=== PATIENT | female | born 1960 | race Caucasian/White ===

== ENCOUNTER 2016-07-18 09:36 | Outpatient (RCR) | payer OTHER ==
--- OUTSIDE RECORDS SUMMARY | 2016-04-25 09:00 | XMS REPORT | Continuity of Care Document ---
Author Author [facility] Organization [facility] Address Unknown Phone Unavailable Care Team Providers Care Parachute Rigger Name Role Phone JUANITA SANDERS DO PCP Insurance Providers Payer Name Policy Number Subscriber Name Relationship DAMARI [id number] Ed Whatley 16 Self / Same As Patient Advance Directives Directive Response Recorded Date/Time Advance Directives No 12/01/15 5:36pm Health Care Power of Blow Moulding Machine Operator No 12/01/15 5:36pm Organ Donor No 12/01/15 5:36pm Resuscitation Status Full Code 12/01/15 5:36pm Chief Complaint and Reason for Visit Chief Complaint LOW SODIUM Reason for Visit Fracture of left olecranon process Problems Active Problems Medical Problem Onset Date Status Acute hyponatremia Unknown Acute Fracture of left olecranon process Unknown Acute Medications Current Home Medications Medication Dose Units Route Directions Days/Qty Instructions Start Date Prednisone 50 Mg 100 Mg Oral As Directed TAKES 2 (50 MG) TABLETS DAILY X 5 DAYS WITH EACH ROUND OF CHEMO 12/01/15 Ondansetron Hcl 8 Mg 8 Mg Oral Every 8HRS as needed for Nausea/Vomiting 12/01/15 Bisoprolol Fumarate/Hctz 1 Each 1 Tab Oral Daily 12/01/15 Naproxen 500 Mg 500 Mg Oral Twice A Day 12/01/15 Spironolactone 25 Mg 25 Mg Oral Daily 12/01/15 Allopurinol 100 Mg 100 Mg Oral Daily 12/01/15 Estradiol 1 Mg 1 Mg Oral Daily 12/01/15 Diazepam 5 Mg 5 Mg Oral Bedtime as needed for Anxiety 12/01/15 Sucralfate 1 Gm/10 Ml 10 Ml Oral Before Meals And At Bedtime Omeprazole 20 Mg 20 Mg Oral Daily 12/01/15 Metoclopramide Hcl 10 Mg 10 Mg Oral As Needed for Nausea 30 12/03/15 Diphenhydramine Hcl 25 Mg 25 Mg Oral Pharmacy To Dose as needed for Prior Reglan Use 12/03/15 Past Home Medications Medication Directions Ordered Status Bisoprolol Fumarate/Hctz 1 Each Tablet, 1 Tab Oral Daily 03/19/14 Discontinued Estradiol 1 Mg Tablet, 1 Mg Oral Daily 03/19/14 Discontinued Naproxen 500 Mg Tablet, 1 Tab Oral As Needed 03/19/14 Discontinued Fluticasone Propionate 16 Gm Naspr, 1 [place] Inhalation As Needed 03/19/14 Discontinued Hydrocodone Bit/Acetaminophen 1 Tab Tablet, 1-2 Tab Oral Every 6 Hours as needed for Pain 03/19/14 Discontinued [Bisoprolol] , 6.25 Oral Daily 11/14/15 Discontinued [Spironolactone] , 25 Oral Daily 11/14/15 Discontinued Hydrocodone/Acetaminophen 1 Each Tablet, 1 Each Oral Every 4HRS as needed for Pain 11/14/15 Discontinued Hydrocodone/Acetaminophen 1 Each Tablet, 1 Each Oral Every 4HRS as needed for Pain 11/21/15 Discontinued Social History Social History Problem Response Recorded Date/Time Alcohol Use Denies Use 12/01/2015 5:33pm Recreational Drug Use No 12/01/2015 5:33pm Recent Foreign Travel No 03/19/2014 10:43pm Recent Infectious Disease Exposure No 03/19/2014 10:43pm Hospitalization with Isolation Denies 12/03/2015 2:17pm Smoking Status Never a Smoker 12/01/2015 5:36pm Query Response Start Date Stop Date Smoking Status Never a Smoker Hospital Discharge Instructions No hospital discharge instructions. Plan of Care Discharge Date 12/03/15 2:16pm Disposition 01 HOME, SELF-CARE Instructions/Education Provided Acute Nausea and Vomiting (GEN) Prescriptions See Medication Section Functional Status Query Response Date Recorded Patient Orientation Person Place Time Situation December 03, 2015 2:17pm Comprehension Ability Understands Concepts December 03, 2015 7:56am Allergies, Adverse Reactions, Alerts Allergen Type Severity Reaction Status Last Updated Penicillins ([id number]) Allergy Unknown Active 12/01/15 Immunizations No immunization records. Vital Signs Acute Vital Signs Vital Response Date/Time Temperature (Fahrenheit) 98.7 degrees F (97.6 - 99.5) 12/03/2015 2:10pm Temperature (Calculated Celsius) 37.52430 degrees C (36.4 - 37.5) 12/03/2015 2:02pm Temperature Source Tympanic 12/03/2015 2:10pm Pulse Rate (adult) 82 bpm (60 - 90) 12/03/2015 2:10pm Respiratory Rate 20 bpm (12 - 24) 12/03/2015 2:10pm O2 Sat by Pulse Oximetry 97 % (88 - 100) 12/03/2015 2:10pm Blood Pressure 125/72 mm Hg 12/03/2015 2:10pm Blood Pressure Mean 89 mm Hg 12/03/2015 2:02pm Pain Pain Intensity 0 12/03/2015 2:02pm Height (Feet) 5 feet 12/01/2015 5:37pm Height (Inches) 6.00 inches 12/01/2015 5:37pm Height (Calculated Centimeters) 167.319870 cm 12/01/2015 5:37pm Weight (Pounds) 149 pounds 12/01/2015 5:37pm Weight (Ounces) 0.0 oz 12/01/2015 5:37pm Weight (Calculated Grams) 42329.264 gm 12/01/2015 5:37pm Weight (Calculated Kilograms) 67.952205 kilograms 12/01/2015 5:37pm Calculated BMI 24.1 12/01/2015 5:37pm Results Pending Laboratory Results Test Name Collection Date/Time Microbiology Results Procedure Source Result Collection Date/Time Result Date/Time MRSA Screen Nasal MRSA not isolated 11/14/2015 7:15am 11/15/2015 11:27am Procedures Procedure Status Date Provider(s) BIOPSY/REMOVAL LYMPH NODES Completed 11/14/15 JANAY RICHARDSON MD INSERT TUNNELED CV CATH Completed 11/21/15 JANAY RICHARDSON MD Color Doppler echocardiography Active 11/24/15 TATYANA FORBES Encounters Encounter Location Arrival/Admit Date Discharge/Depart Date Attending Provider Discharged Inpatient (obs) [facility] 12/01/15 3:57pm 2:16pm TATYANA FORBES Registered Recurring [facility] 12/01/15 1:49pm TATYANA FORBES Registered Clinic [facility] 11/30/15 8:39am GARRET SEGUNDO Registered Clinic [facility] 11/24/15 7:42am TATYANA FORBES Departed [facility] 11/21/15 10:28am 11/21/15 4:25pm JANAY RICHARDSON MD Departed [facility] 11/14/15 6:54am 11:32am JANAY RICHARDSON MD Recent Diagnosis Fracture of left olecranon process
[2016-05-23 10:30] LABS: BASOPHILS % (AUTO) 0 % (0-10); EOSINOPHILS # (AUTO) 0.1 10^3/uL (0.0-0.3); EOSINOPHILS % (AUTO) 3 % (0-10); LYMPHOCYTES # (AUTO) 0.7 X 10^3 (1.0-4.0); LYMPHOCYTES % (AUTO) 13 % (12-44); MEAN CORPUSCULAR HEMOGLOBIN 33 PG (25-34); MEAN CORPUSCULAR HGB CONC 36 G/DL (32-36); MEAN CORPUSCULAR VOLUME 92 FL (80-99); MEAN PLATELET VOLUME 9.3 FL (7.4-10.4); MONOCYTES # (AUTO) 0.5 X 10^3 (0.0-1.0); MONOCYTES % (AUTO) 10 % (0-12); NEUTROPHILS # (AUTO) 3.9 X 10^3 (1.8-7.8); NEUTROPHILS % (AUTO) 74 % (42-75); PLATELET COUNT 235 10^3/uL (130-400); RED CELL DISTRIBUTION WIDTH 11.2 % (10.0-14.5); WHITE BLOOD COUNT 5.2 10^3/uL (4.3-11.0)
[2016-05-23 10:55] LABS: ALANINE AMINOTRANSFERASE 13 U/L (0-55); ALBUMIN 4.3 G/DL (3.2-4.5); ANION GAP 9 MMOL/L (5-14); ASPARTATE AMINO TRANSFERASE 15 U/L (5-34); BILIRUBIN,TOTAL 0.5 MG/DL (0.1-1.0); BLOOD UREA NITROGEN 15 MG/DL (7-18); BUN/CREATININE RATIO 18; CALCIUM 9.1 MG/DL (8.5-10.1); CARBON DIOXIDE 26 MMOL/L (21-32); CHLORIDE 101 MMOL/L (98-107); CREATININE SERUM 0.84 MG/DL (0.60-1.30); GFR ESTIMATED > 60; GLUCOSE 97 MG/DL (70-105); LACTATE DEHYDROGENASE 184 U/L (125-220); POTASSIUM 3.7 MMOL/L (3.6-5.0); SODIUM 136 MMOL/L (135-145); TOTAL PROTEIN 6.4 G/DL (6.4-8.2)
[~2016-07-18] VITALS: Ht 165.1 cm; Wt 70.3 kg
[~2016-07-18 09:36] MED LIST: ACETAMINOPHEN 500 MG TAB (TYLENOL) CANCER CTR PO PRN; ALLO100T PO; BISO1TAB3 PO; BISO1TAB8 PO; CYCLOPHOSPHAMIDE IV SCH; DIAZ5TAB3 PO; DIPH25CA79 PO; DOXORUBICIN IV SCH; ESTR1TAB24 PO; FAMOTIDINE 20MG/2ML IV (CANCER CTR) IV SCH; FLUT16SP22 IH; FOSAPREPITANT DIMEGLUMINE 150 MG in NS (IVPB) CANCER CENTER ONLY 150 ML IV PRN; HYDR-1231 PO; HYDR-3454 PO; METO-310 PO; NAPR-689 PO; NAPR500T3 PO; NS IV 1000 ML (CANCER CTR) IV SCH; NS IV 500 ML (CANCER CENTER) IV SCH; NS IV SCH; OMEP20CA12 PO; ONDA8TAB12 PO; PALONOSETRON HCL 0.25 MG, DEXAMETHASONE PF INJECTION 10 MG in NS (IVPB) 50 ML IV PRN; PEGFILGRASTIM 6 MG/0.6ML NEULASTA SC SCH; PRD50T PO; RITUXIMAB FOR IV SCH; RITUXIMAB IV SCH; SPIR25TA3 PO; SUCR1ORA5 PO; [UNRECOGNIZED DRUG - OTHER] IV SCH; bisoprolol PO; diphenhydrAMINE 25 MG TAB (BENADRYL) CANCER CENTER PO SCH; riTUXimab 500 MG, riTUXimab FOR IV INJ CONC 200 MG in NS (IVPB) CANCER CENTER ONLY 150 ML IV SCH; spironolactone PO; vinCRIStine SULFATE 2 MG in NS (IVPB) 50 ML IV SCH
[2016-07-18 10:13] LABS: BASOPHILS % (AUTO) 1 % (0-10); EOSINOPHILS # (AUTO) 0.1 10^3/uL (0.0-0.3); EOSINOPHILS % (AUTO) 3 % (0-10); LYMPHOCYTES # (AUTO) 0.6 X 10^3 (1.0-4.0); LYMPHOCYTES % (AUTO) 15 % (12-44); MEAN CORPUSCULAR HEMOGLOBIN 32 PG (25-34); MEAN CORPUSCULAR HGB CONC 35 G/DL (32-36); MEAN CORPUSCULAR VOLUME 92 FL (80-99); MEAN PLATELET VOLUME 9.5 FL (7.4-10.4); MONOCYTES # (AUTO) 0.4 X 10^3 (0.0-1.0); MONOCYTES % (AUTO) 9 % (0-12); NEUTROPHILS # (AUTO) 2.9 X 10^3 (1.8-7.8); NEUTROPHILS % (AUTO) 73 % (42-75); PLATELET COUNT 238 10^3/uL (130-400); RED BLOOD COUNT 4.09 10^6/uL (4.35-5.85); WHITE BLOOD COUNT 3.9 10^3/uL (4.3-11.0)
[2016-07-18 10:35] LABS: ALANINE AMINOTRANSFERASE 20 U/L (0-55); ALBUMIN 4.2 G/DL (3.2-4.5); ANION GAP 9 MMOL/L (5-14); ASPARTATE AMINO TRANSFERASE 20 U/L (5-34); BILIRUBIN,TOTAL 0.8 MG/DL (0.1-1.0); BLOOD UREA NITROGEN 20 MG/DL (7-18); BUN/CREATININE RATIO 23; CALCIUM 9.3 MG/DL (8.5-10.1); CARBON DIOXIDE 26 MMOL/L (21-32); CHLORIDE 103 MMOL/L (98-107); CREATININE SERUM 0.87 MG/DL (0.60-1.30); GFR ESTIMATED > 60; GLUCOSE 101 MG/DL (70-105); LACTATE DEHYDROGENASE 180 U/L (125-220); POTASSIUM 3.8 MMOL/L (3.6-5.0); SODIUM 138 MMOL/L (135-145); TOTAL PROTEIN 6.2 G/DL (6.4-8.2)
== END 2016-07-24 | disposition home or self-care (01) ==
LOC: ONC 09:36
PROVIDERS: ATTEND Internal Medicine Hematology & Oncology
DX: Z51.11 Encounter for antineoplastic chemotherapy (principal); C85.90 Non-Hodgkin lymphoma, unspecified, unspecified site; I10 Essential (primary) hypertension; M19.90 Unspecified osteoarthritis, unspecified site; Z79.899 Other long term (current) drug therapy; Z45.2 Encounter for adjustment and management of vascular access device
CPT/HCPCS: 36591; 80053; 83615; 85025; 96413; 96415; 96523; 99213

== ENCOUNTER 2016-11-07 08:18 | Outpatient (RCR) | payer OTHER ==
--- OUTSIDE RECORDS SUMMARY | 2016-08-15 13:05 | XMS REPORT | Continuity of Care Document ---
Author Author [facility] Organization [facility] Address Unknown Phone Unavailable Care Team Providers Care Housing Property Manager Name Role Phone JUANITA SANDERS DO PCP Insurance Providers Payer Name Policy Number Subscriber Name Relationship DAMARI [id number] Ed Whatley Self / Same As Patient Advance Directives Directive Response Recorded Date/Time Advance Directives No 12/01/15 5:36pm Health Care Power of Voice Coach No 12/01/15 5:36pm Organ Donor No 12/01/15 5:36pm Problems Active Problems Medical Problem Onset Date [...] 10 Mg Oral As Needed for Nausea 12/03/15 Diphenhydramine Hcl 25 Mg 25 Mg Oral Pharmacy To Dose as needed for Prior Reglan Use 12/03/15 Past Home Medications Medication Directions Ordered Status Bisoprolol Fumarate/Hctz 1 Each Tablet, 1 Tab Oral Daily 03/19/14 Discontinued Estradiol 1 Mg Tablet, 1 Mg Oral Daily 03/19/14 Discontinued Naproxen 500 Mg Tablet, 1 Tab Oral As Needed 03/19/14 Discontinued Fluticasone Propionate 16 Gm Naspr, 1 [place] Inhalation As Needed 03/19/14 Discontinued Hydrocodone Bit/Acetaminophen [...] Recent Infectious Disease Exposure No 03/19/2014 10:43pm Hospital Discharge Instructions No hospital discharge instructions. Plan of Care Prescriptions See Medication Section Functional Status No functional status results. Allergies, Adverse Reactions, Alerts Allergen Type Severity Reaction Status Last Updated Penicillins ([id number]) Allergy Unknown Active 12/01/15 Immunizations No immunization records. Vital Signs Acute Vital Signs Vital Response Date/Time Height 5 ft 5 in Weight 155 lb Body Mass Index 25.8 kg/m^2 Results Laboratory Results Test Name Result Units Flags Reference Collection Date/Time Result Date/ Time Comments White Blood Count 3.9 10^3/uL L 4.3-11.0 07/18/2016 10:07/18/2016 10 :15am Red Blood Count 4.09 10^6/uL L 4.35-5.85 07/18/2016 10:07/18/2016 10 :15am Hemoglobin 13.1 G/DL 11.5-16.0 07/18/2016 10:07/18/2016 10:15am Hematocrit 38 % 35-52 07/18/2016 10:07/18/2016 10:15am Mean Corpuscular Volume 92 FL 80-99 07/18/2016 10:07/18/2016 10: 15am Mean Corpuscular Hemoglobin 32 PG 25-34 07/18/2016 10:07/18/2016 10:15am Mean Corpuscular Hemoglobin Concent 35 G/DL 32-36 07/18/2016 10: 10:15am Red Cell Distribution Width 12.0 % 10.0-14.5 07/18/2016 10:2016 10:15am Platelet Count 238 10^3/uL 130-400 07/18/2016 10:07/18/2016 10: 15am Mean Platelet Volume 9.5 FL 7.4-10.4 07/18/2016 10:07/18/2016 10: 15am Neutrophils (%) (Auto) 73 % 42-75 07/18/2016 10:07/18/2016 10: 15am Lymphocytes (%) (Auto) 15 % 12-44 07/18/2016 10:07/18/2016 10: 15am Monocytes (%) (Auto) 9 % 0-12 07/18/2016 10:07/18/2016 10:15am Eosinophils (%) (Auto) 3 % 0-10 07/18/2016 10:07/18/2016 10:15am Basophils (%) (Auto) 1 % 0-10 07/18/2016 10:07/18/2016 10:15am Neutrophils # (Auto) 2.9 X 10^3 1.8-7.8 07/18/2016 10:07/18/2016 10:15am Lymphocytes # (Auto) 0.6 X 10^3 L 1.0-4.0 07/18/2016 10:07/18/2016 10:15am Monocytes # (Auto) 0.4 X 10^3 0.0-1.0 07/18/2016 10:07/18/2016 10: 15am Eosinophils # (Auto) 0.1 10^3/uL 0.0-0.3 07/18/2016 10:07/18/2016 10:15am Basophils # (Auto) 0.0 10^3/uL 0.0-0.1 07/18/2016 10:07/18/2016 10 :15am Sodium Level 138 MMOL/L 135-145 07/18/2016 10:07/18/2016 10:36am Potassium Level 3.8 MMOL/L 3.6-5.0 07/18/2016 10:07/18/2016 10: 36am Chloride Level 103 MMOL/L 98-107 07/18/2016 10:07/18/2016 10:36am Carbon Dioxide Level 26 MMOL/L 21-32 07/18/2016 10:07/18/2016 10: 36am Anion Gap 9 MMOL/L 5-14 07/18/2016 10:07/18/2016 10:36am Blood Urea Nitrogen 20 MG/DL H 7-18 07/18/2016 10:07/18/2016 10: 36am Creatinine 0.87 MG/DL 0.60-1.30 07/18/2016 10:07/18/2016 10:36am BUN/Creatinine Ratio 23 07/18/2016 10:07/18/2016 10:36am Estimat Glomerular Filtration Rate > 60 07/18/2016 10:2016 10:36am GFR INTERPRETIVE DATA UNITS FOR ESTIMATED GFR (eGFR): mL/min/1.73 M2 REFERENCE RANGE FOR ESTIMATED GFR (eGFR) eGFR NORMAL eGFR >60 MODERATELY DECREASED eGFR 30-59 SEVERLY DECREASED eGFR 15-29 KIDNEY FAILURE <15 (OR DIALYSIS) Glucose Level 101 MG/DL 70-105 07/18/2016 10:07/18/2016 10:36am Calcium Level 9.3 MG/DL 8.5-10.1 07/18/2016 10:07/18/2016 10:36am Total Bilirubin 0.8 MG/DL 0.1-1.0 07/18/2016 10:10a07/18/2016 10: 36am Alkaline Phosphatase 55 U/L 40-136 07/18/2016 10:10a07/18/2016 10: 36am Aspartate Amino Transf (AST/SGOT) 20 U/L 5-34 07/18/2016 10:10am 2016 10:36am Alanine Aminotransferase (ALT/SGPT) 20 U/L 0-55 07/18/2016 10:10a11/2016 10:36am Lactate Dehydrogenase 180 U/L 125-220 07/18/2016 10:10am 07/18/2016 10: 36am Total Protein 6.2 G/DL L 6.4-8.2 07/18/2016 10:10am 07/18/2016 10:36am Albumin 4.2 G/DL 3.2-4.5 07/18/2016 10:10am 07/18/2016 10:36am Procedures No known history of procedures. Encounters Encounter Location Arrival/Admit Date Discharge/Depart Date Attending Provider Discharged Recurring [facility] 07/18/16 9:36am 11:59pm TATYANA FORBES
[2016-09-12 10:08] LABS: BASOPHILS % (AUTO) 0 % (0-10); EOSINOPHILS # (AUTO) 0.2 10^3/uL (0.0-0.3); EOSINOPHILS % (AUTO) 4 % (0-10); LYMPHOCYTES # (AUTO) 0.7 X 10^3 (1.0-4.0); LYMPHOCYTES % (AUTO) 18 % (12-44); MEAN CORPUSCULAR HEMOGLOBIN 33 PG (25-34); MEAN CORPUSCULAR HGB CONC 35 G/DL (32-36); MEAN CORPUSCULAR VOLUME 93 FL (80-99); MEAN PLATELET VOLUME 9.8 FL (7.4-10.4); MONOCYTES # (AUTO) 0.6 X 10^3 (0.0-1.0); MONOCYTES % (AUTO) 15 % (0-12); NEUTROPHILS # (AUTO) 2.3 X 10^3 (1.8-7.8); NEUTROPHILS % (AUTO) 63 % (42-75); PLATELET COUNT 230 10^3/uL (130-400); RED BLOOD COUNT 4.08 10^6/uL (4.35-5.85); RED CELL DISTRIBUTION WIDTH 11.7 % (10.0-14.5); WHITE BLOOD COUNT 3.7 10^3/uL (4.3-11.0)
[2016-09-12 10:38] LABS: ALANINE AMINOTRANSFERASE 15 U/L (0-55); ALBUMIN 4.1 G/DL (3.2-4.5); ANION GAP 9 MMOL/L (5-14); ASPARTATE AMINO TRANSFERASE 13 U/L (5-34); BILIRUBIN,TOTAL 0.5 MG/DL (0.1-1.0); BLOOD UREA NITROGEN 18 MG/DL (7-18); BUN/CREATININE RATIO 21; CARBON DIOXIDE 26 MMOL/L (21-32); CHLORIDE 103 MMOL/L (98-107); CREATININE SERUM 0.87 MG/DL (0.60-1.30); GFR ESTIMATED > 60; GLUCOSE 89 MG/DL (70-105); LACTATE DEHYDROGENASE 173 U/L (125-220); SODIUM 138 MMOL/L (135-145); TOTAL PROTEIN 6.1 G/DL (6.4-8.2)
[~2016-11-07] VITALS: Ht 165.1 cm; Wt 70.8 kg
[~2016-11-07 08:18] MED LIST changes: -RITUXIMAB FOR IV SCH; -RITUXIMAB IV SCH; -[UNRECOGNIZED DRUG - OTHER] IV SCH
[2016-11-07 08:35] LABS: BASOPHILS % (AUTO) 0 % (0-10); EOSINOPHILS # (AUTO) 0.1 10^3/uL (0.0-0.3); EOSINOPHILS % (AUTO) 3 % (0-10); LYMPHOCYTES # (AUTO) 0.9 X 10^3 (1.0-4.0); LYMPHOCYTES % (AUTO) 19 % (12-44); MEAN CORPUSCULAR HEMOGLOBIN 33 PG (25-34); MEAN CORPUSCULAR HGB CONC 35 G/DL (32-36); MEAN CORPUSCULAR VOLUME 94 FL (80-99); MEAN PLATELET VOLUME 10.6 FL (7.4-10.4); MONOCYTES # (AUTO) 0.5 X 10^3 (0.0-1.0); MONOCYTES % (AUTO) 11 % (0-12); NEUTROPHILS % (AUTO) 67 % (42-75); PLATELET COUNT 229 10^3/uL (130-400); RED BLOOD COUNT 4.25 10^6/uL (4.35-5.85); RED CELL DISTRIBUTION WIDTH 11.8 % (10.0-14.5); WHITE BLOOD COUNT 4.5 10^3/uL (4.3-11.0)
[2016-11-07 08:56] LABS: ALANINE AMINOTRANSFERASE 15 U/L (0-55); ALBUMIN 4.1 G/DL (3.2-4.5); ANION GAP 9 MMOL/L (5-14); ASPARTATE AMINO TRANSFERASE 14 U/L (5-34); BILIRUBIN,TOTAL 0.8 MG/DL (0.1-1.0); BLOOD UREA NITROGEN 15 MG/DL (7-18); BUN/CREATININE RATIO 16; CALCIUM 8.9 MG/DL (8.5-10.1); CARBON DIOXIDE 23 MMOL/L (21-32); CHLORIDE 106 MMOL/L (98-107); CREATININE SERUM 0.91 MG/DL (0.60-1.30); GFR ESTIMATED > 60; GLUCOSE 117 MG/DL (70-105); LACTATE DEHYDROGENASE 168 U/L (125-220); POTASSIUM 3.7 MMOL/L (3.6-5.0); SODIUM 138 MMOL/L (135-145)
== END 2016-11-13 | disposition home or self-care (01) ==
LOC: ONC 08:18
PROVIDERS: ATTEND Internal Medicine Hematology & Oncology
DX: C85.90 Non-Hodgkin lymphoma, unspecified, unspecified site (principal); I10 Essential (primary) hypertension; M19.90 Unspecified osteoarthritis, unspecified site; Z79.899 Other long term (current) drug therapy; Z45.2 Encounter for adjustment and management of vascular access device
CPT/HCPCS: 36591; 80053; 83615; 85025; 96413; 96523; 99213

== ENCOUNTER 2017-02-27 08:36 | Outpatient (RCR) | payer OTHER ==
[2017-01-02 09:11] LABS: BASOPHILS % (AUTO) 0 % (0-10); EOSINOPHILS # (AUTO) 0.1 10^3/uL (0.0-0.3); EOSINOPHILS % (AUTO) 3 % (0-10); LYMPHOCYTES # (AUTO) 0.8 X 10^3 (1.0-4.0); LYMPHOCYTES % (AUTO) 17 % (12-44); MEAN CORPUSCULAR HEMOGLOBIN 33 PG (25-34); MEAN CORPUSCULAR HGB CONC 35 G/DL (32-36); MEAN CORPUSCULAR VOLUME 94 FL (80-99); MEAN PLATELET VOLUME 10.3 FL (7.4-10.4); MONOCYTES # (AUTO) 0.6 X 10^3 (0.0-1.0); MONOCYTES % (AUTO) 11 % (0-12); NEUTROPHILS # (AUTO) 3.4 X 10^3 (1.8-7.8); NEUTROPHILS % (AUTO) 69 % (42-75); PLATELET COUNT 232 10^3/uL (130-400); RED BLOOD COUNT 4.23 10^6/uL (4.35-5.85); RED CELL DISTRIBUTION WIDTH 11.6 % (10.0-14.5)
[2017-01-02 09:31] LABS: ALANINE AMINOTRANSFERASE 14 U/L (0-55); ALBUMIN 4.1 GM/DL (3.2-4.5); ANION GAP 8 MMOL/L (5-14); ASPARTATE AMINO TRANSFERASE 18 U/L (5-34); BILIRUBIN,TOTAL 0.7 MG/DL (0.1-1.0); BLOOD UREA NITROGEN 17 MG/DL (7-18); BUN/CREATININE RATIO 18 (0-20); CALCIUM 9.4 MG/DL (8.5-10.1); CARBON DIOXIDE 28 MMOL/L (21-32); CHLORIDE 100 MMOL/L (98-107); CREATININE SERUM 0.93 MG/DL (0.60-1.30); GFR ESTIMATED > 60; GLUCOSE 90 MG/DL (70-105); HEMOLYSIS 13 (-100-29); ICTERUS 0.6 (-100-1.9); LACTATE DEHYDROGENASE 230 U/L (125-220); LIPEMIA 1 (-100-49); POTASSIUM 3.8 MMOL/L (3.6-5.0); SODIUM 136 MMOL/L (135-145); TOTAL PROTEIN 6.7 GM/DL (6.4-8.2)
[~2017-02-27] VITALS: Ht 165.1 cm; Wt 71.2 kg
[~2017-02-27 08:36] MED LIST changes: -NAPR500T3 PO; +NAPR500T4 PO
[2017-02-27 08:51] LABS: BASOPHILS % (AUTO) 0 % (0-10); EOSINOPHILS # (AUTO) 0.1 10^3/uL (0.0-0.3); EOSINOPHILS % (AUTO) 2 % (0-10); LYMPHOCYTES # (AUTO) 0.8 X 10^3 (1.0-4.0); LYMPHOCYTES % (AUTO) 14 % (12-44); MEAN CORPUSCULAR HEMOGLOBIN 33 PG (25-34); MEAN CORPUSCULAR HGB CONC 35 G/DL (32-36); MEAN CORPUSCULAR VOLUME 95 FL (80-99); MEAN PLATELET VOLUME 9.8 FL (7.4-10.4); MONOCYTES # (AUTO) 0.4 X 10^3 (0.0-1.0); MONOCYTES % (AUTO) 6 % (0-12); NEUTROPHILS # (AUTO) 4.7 X 10^3 (1.8-7.8); NEUTROPHILS % (AUTO) 79 % (42-75); PLATELET COUNT 257 10^3/uL (130-400); RED BLOOD COUNT 4.22 10^6/uL (4.35-5.85); RED CELL DISTRIBUTION WIDTH 11.8 % (10.0-14.5); WHITE BLOOD COUNT 5.9 10^3/uL (4.3-11.0)
[2017-02-27 09:26] LABS: ALANINE AMINOTRANSFERASE 16 U/L (0-55); ALBUMIN 4.2 GM/DL (3.2-4.5); ANION GAP 9 MMOL/L (5-14); ASPARTATE AMINO TRANSFERASE 17 U/L (5-34); BILIRUBIN,TOTAL 0.9 MG/DL (0.1-1.0); BLOOD UREA NITROGEN 17 MG/DL (7-18); BUN/CREATININE RATIO 19; CALCIUM 9.2 MG/DL (8.5-10.1); CARBON DIOXIDE 27 MMOL/L (21-32); CHLORIDE 102 MMOL/L (98-107); CREATININE SERUM 0.89 MG/DL (0.60-1.30); GFR ESTIMATED > 60; GLUCOSE 116 MG/DL (70-105); LACTATE DEHYDROGENASE 178 U/L (125-220); POTASSIUM 3.8 MMOL/L (3.6-5.0); SODIUM 138 MMOL/L (135-145); TOTAL PROTEIN 6.5 GM/DL (6.4-8.2)
== END 2017-03-02 | disposition home or self-care (01) ==
LOC: ONC 08:36
PROVIDERS: ATTEND Internal Medicine Hematology & Oncology
DX: Z51.11 Encounter for antineoplastic chemotherapy (principal); C85.90 Non-Hodgkin lymphoma, unspecified, unspecified site; I10 Essential (primary) hypertension; M19.90 Unspecified osteoarthritis, unspecified site; Z79.899 Other long term (current) drug therapy; Z45.2 Encounter for adjustment and management of vascular access device
CPT/HCPCS: 36591; 80053; 83615; 85025; 96413; 96523

== ENCOUNTER 2017-03-25 11:49 | Outpatient (RCR) | payer OTHER ==
[~2017-03-25 11:49] MED LIST changes: -ACETAMINOPHEN 500 MG TAB (TYLENOL) CANCER CTR PO PRN; -CYCLOPHOSPHAMIDE IV SCH; -DOXORUBICIN IV SCH; -FAMOTIDINE 20MG/2ML IV (CANCER CTR) IV SCH; -FOSAPREPITANT DIMEGLUMINE 150 MG in NS (IVPB) CANCER CENTER ONLY 150 ML IV PRN; +NAPR500T3 PO; -NAPR500T4 PO; -NS IV 1000 ML (CANCER CTR) IV SCH; -NS IV 500 ML (CANCER CENTER) IV SCH; -NS IV SCH; -PALONOSETRON HCL 0.25 MG, DEXAMETHASONE PF INJECTION 10 MG in NS (IVPB) 50 ML IV PRN; -PEGFILGRASTIM 6 MG/0.6ML NEULASTA SC SCH; -diphenhydrAMINE 25 MG TAB (BENADRYL) CANCER CENTER PO SCH; -riTUXimab 500 MG, riTUXimab FOR IV INJ CONC 200 MG in NS (IVPB) CANCER CENTER ONLY 150 ML IV SCH; -vinCRIStine SULFATE 2 MG in NS (IVPB) 50 ML IV SCH
== END 2017-04-12 | disposition home or self-care (01) ==
LOC: ONC 11:49
PROVIDERS: ATTEND Internal Medicine Hematology & Oncology
DX: C85.90 Non-Hodgkin lymphoma, unspecified, unspecified site (principal); I10 Essential (primary) hypertension; M19.90 Unspecified osteoarthritis, unspecified site; Z79.899 Other long term (current) drug therapy; Z45.2 Encounter for adjustment and management of vascular access device
CPT/HCPCS: 36591

== ENCOUNTER 2017-07-17 09:28 | Outpatient (RCR) | payer OTHER ==
[2017-04-24 09:37] LABS: BASOPHILS % (AUTO) 0 % (0-10); EOSINOPHILS # (AUTO) 0.1 10^3/uL (0.0-0.3); EOSINOPHILS % (AUTO) 2 % (0-10); HEMATOCRIT 41 % (35-52); HEMOGLOBIN 14.3 G/DL (11.5-16.0); LYMPHOCYTES # (AUTO) 0.6 X 10^3 (1.0-4.0); LYMPHOCYTES % (AUTO) 15 % (12-44); MEAN CORPUSCULAR HEMOGLOBIN 33 PG (25-34); MEAN CORPUSCULAR HGB CONC 35 G/DL (32-36); MEAN CORPUSCULAR VOLUME 94 FL (80-99); MEAN PLATELET VOLUME 9.8 FL (7.4-10.4); MONOCYTES # (AUTO) 0.4 X 10^3 (0.0-1.0); MONOCYTES % (AUTO) 9 % (0-12); NEUTROPHILS # (AUTO) 3.2 X 10^3 (1.8-7.8); NEUTROPHILS % (AUTO) 74 % (42-75); PLATELET COUNT 258 10^3/uL (130-400); RED BLOOD COUNT 4.31 10^6/uL (4.35-5.85); RED CELL DISTRIBUTION WIDTH 11.5 % (10.0-14.5); WHITE BLOOD COUNT 4.3 10^3/uL (4.3-11.0)
[2017-04-24 10:02] LABS: ALANINE AMINOTRANSFERASE 17 U/L (0-55); ALBUMIN 3.9 GM/DL (3.2-4.5); ALKALINE PHOSPHATASE 60 U/L (40-136); BILIRUBIN,TOTAL 0.8 MG/DL (0.1-1.0); BUN/CREATININE RATIO 17; CALCIUM 9.1 MG/DL (8.5-10.1); CARBON DIOXIDE 26 MMOL/L (21-32); CHLORIDE 101 MMOL/L (98-107); CREATININE SERUM 0.88 MG/DL (0.60-1.30); GFR ESTIMATED > 60; GLUCOSE 117 MG/DL (70-105); POTASSIUM 3.4 MMOL/L (3.6-5.0); SODIUM 135 MMOL/L (135-145); TOTAL PROTEIN 6.5 GM/DL (6.4-8.2)
[2017-06-19 13:48] LABS: BASOPHILS % (AUTO) 1 % (0-10); EOSINOPHILS # (AUTO) 0.3 10^3/uL (0.0-0.3); EOSINOPHILS % (AUTO) 5 % (0-10); HEMATOCRIT 38 % (35-52); HEMOGLOBIN 13.5 G/DL (11.5-16.0); LYMPHOCYTES % (AUTO) 17 % (12-44); MEAN CORPUSCULAR HEMOGLOBIN 34 PG (25-34); MEAN CORPUSCULAR HGB CONC 35 G/DL (32-36); MEAN CORPUSCULAR VOLUME 95 FL (80-99); MEAN PLATELET VOLUME 10.4 FL (7.4-10.4); MONOCYTES # (AUTO) 0.5 X 10^3 (0.0-1.0); MONOCYTES % (AUTO) 8 % (0-12); NEUTROPHILS # (AUTO) 4.1 X 10^3 (1.8-7.8); NEUTROPHILS % (AUTO) 70 % (42-75); PLATELET COUNT 266 10^3/uL (130-400); RED BLOOD COUNT 4.01 10^6/uL (4.35-5.85); RED CELL DISTRIBUTION WIDTH 11.6 % (10.0-14.5); WHITE BLOOD COUNT 5.8 10^3/uL (4.3-11.0)
[2017-06-19 14:08] LABS: ALANINE AMINOTRANSFERASE 17 U/L (0-55); ALKALINE PHOSPHATASE 66 U/L (40-136); BILIRUBIN,TOTAL 0.5 MG/DL (0.1-1.0); BUN/CREATININE RATIO 18; CARBON DIOXIDE 27 MMOL/L (21-32); CHLORIDE 101 MMOL/L (98-107); CREATININE SERUM 0.88 MG/DL (0.60-1.30); GFR ESTIMATED > 60; GLUCOSE 98 MG/DL (70-105); POTASSIUM 3.8 MMOL/L (3.6-5.0); SODIUM 136 MMOL/L (135-145); TOTAL PROTEIN 6.8 GM/DL (6.4-8.2)
[~2017-07-17] VITALS: Ht 165.1 cm; Wt 73.0 kg
[~2017-07-17 09:28] MED LIST changes: +ACETAMINOPHEN 500 MG TAB (TYLENOL) CANCER CTR PO PRN; -NAPR500T3 PO; +NAPR500T4 PO; +NS IV 500 ML (CANCER CENTER) IV SCH; +diphenhydrAMINE 25 MG TAB (BENADRYL) CANCER CENTER PO SCH; +riTUXimab 500 MG, riTUXimab FOR IV INJ CONC 200 MG in NS (IVPB) CANCER CENTER ONLY 150 ML IV SCH
== END 2017-07-23 | disposition home or self-care (01) ==
LOC: ONC 09:28
PROVIDERS: ATTEND Internal Medicine Hematology & Oncology
DX: Z51.11 Encounter for antineoplastic chemotherapy (principal); C85.86 Other specified types of non-Hodgkin lymphoma, intrapelvic lymph nodes; I10 Essential (primary) hypertension; M19.90 Unspecified osteoarthritis, unspecified site; Z79.899 Other long term (current) drug therapy
CPT/HCPCS: 36591; 80053; 83615; 85025; 96413; 96523

== ENCOUNTER 2017-07-31 08:00 | Outpatient (RCR) | payer OTHER ==
[~2017-07-31 08:00] MED LIST changes: -ACETAMINOPHEN 500 MG TAB (TYLENOL) CANCER CTR PO PRN; -NS IV 500 ML (CANCER CENTER) IV SCH; -diphenhydrAMINE 25 MG TAB (BENADRYL) CANCER CENTER PO SCH; -riTUXimab 500 MG, riTUXimab FOR IV INJ CONC 200 MG in NS (IVPB) CANCER CENTER ONLY 150 ML IV SCH
== END 2017-07-31 08:54 | disposition home or self-care (01) ==
PROVIDERS: ATTEND Physician Assistant
DX: M70.72 Other bursitis of hip, left hip (principal); M25.562 Pain in left knee

== ENCOUNTER → 2017-09-16 | Outpatient (CLI) | payer OTHER ==
[~2017-09-16] MED LIST changes: +NAPR-915 PO; -NAPR500T4 PO
--- NOTE | 2017-09-16 12:27 | Diagnostic Imaging Report ---
INDICATION: Routine screening. COMPARISON: Comparison is made with prior study from 08/22/2015 and 08/02/2014. The current study was also evaluated with a Computer Aided Detection (CAD) system. FINDINGS: Both breasts are primarily involutional. The parenchymal pattern is stable. No dominant mass or malignant appearing microcalcifications are seen. [id number] is identified in the right axilla. IMPRESSION: No mammographic features suspicious for malignancy are identified. ACR BI-RADS Category 1: Negative. Result letter will be mailed to the patient. Note: At least 10% of breast cancer is not imaged by mammography. Dictated by: Dictated on workstation # [id number]
== END ==
LOC: RAD 08:31
PROVIDERS: ATTEND Family Medicine
DX: Z12.31 Encounter for screening mammogram for malignant neoplasm of breast (principal)
CPT/HCPCS: 77067

== ENCOUNTER 2017-10-15 07:55 | Outpatient (RCR) | payer OTHER ==
[2017-08-14 10:04] LABS: BASOPHILS % (AUTO) 1 % (0-10); EOSINOPHILS # (AUTO) 0.1 10^3/uL (0.0-0.3); EOSINOPHILS % (AUTO) 3 % (0-10); HEMATOCRIT 39 % (35-52); HEMOGLOBIN 13.8 G/DL (11.5-16.0); LYMPHOCYTES # (AUTO) 0.7 X 10^3 (1.0-4.0); LYMPHOCYTES % (AUTO) 15 % (12-44); MEAN CORPUSCULAR HEMOGLOBIN 34 PG (25-34); MEAN CORPUSCULAR HGB CONC 36 G/DL (32-36); MEAN CORPUSCULAR VOLUME 95 FL (80-99); MEAN PLATELET VOLUME 10.7 FL (7.4-10.4); MONOCYTES # (AUTO) 0.6 X 10^3 (0.0-1.0); MONOCYTES % (AUTO) 13 % (0-12); NEUTROPHILS # (AUTO) 3.4 X 10^3 (1.8-7.8); NEUTROPHILS % (AUTO) 69 % (42-75); PLATELET COUNT 224 10^3/uL (130-400); RED BLOOD COUNT 4.08 10^6/uL (4.35-5.85); RED CELL DISTRIBUTION WIDTH 11.5 % (10.0-14.5); WHITE BLOOD COUNT 4.9 10^3/uL (4.3-11.0)
[2017-08-14 10:21] LABS: ALANINE AMINOTRANSFERASE 15 U/L (0-55); ALKALINE PHOSPHATASE 55 U/L (40-136); BILIRUBIN,TOTAL 0.7 MG/DL (0.1-1.0); BUN/CREATININE RATIO 20; CALCIUM 9.1 MG/DL (8.5-10.1); CARBON DIOXIDE 25 MMOL/L (21-32); CHLORIDE 101 MMOL/L (98-107); CREATININE SERUM 0.93 MG/DL (0.60-1.30); GFR ESTIMATED > 60; GLUCOSE 95 MG/DL (70-105); POTASSIUM 3.9 MMOL/L (3.6-5.0); SODIUM 136 MMOL/L (135-145); TOTAL PROTEIN 6.5 GM/DL (6.4-8.2)
[~2017-10-15] VITALS: Ht 165.1 cm; Wt 77.6 kg
[~2017-10-15 07:55] MED LIST changes: +ACETAMINOPHEN 500 MG TAB (TYLENOL) CANCER CTR PO PRN; +NS IV 500 ML (CANCER CENTER) IV SCH; +diphenhydrAMINE 25 MG TAB (BENADRYL) CANCER CENTER PO SCH; +riTUXimab 500 MG, riTUXimab FOR IV INJ CONC 200 MG in NS (IVPB) CANCER CENTER ONLY 150 ML IV SCH
[2017-10-15 08:28] LABS: BASOPHILS % (AUTO) 0 % (0-10); EOSINOPHILS # (AUTO) 0.2 10^3/uL (0.0-0.3); EOSINOPHILS % (AUTO) 4 % (0-10); HEMATOCRIT 39 % (35-52); HEMOGLOBIN 13.8 G/DL (11.5-16.0); LYMPHOCYTES # (AUTO) 0.9 X 10^3 (1.0-4.0); LYMPHOCYTES % (AUTO) 16 % (12-44); MEAN CORPUSCULAR HEMOGLOBIN 34 PG (25-34); MEAN CORPUSCULAR HGB CONC 35 G/DL (32-36); MEAN CORPUSCULAR VOLUME 96 FL (80-99); MEAN PLATELET VOLUME 10.4 FL (7.4-10.4); MONOCYTES # (AUTO) 0.5 X 10^3 (0.0-1.0); MONOCYTES % (AUTO) 10 % (0-12); NEUTROPHILS # (AUTO) 3.7 X 10^3 (1.8-7.8); NEUTROPHILS % (AUTO) 69 % (42-75); PLATELET COUNT 264 10^3/uL (130-400); RED CELL DISTRIBUTION WIDTH 11.7 % (10.0-14.5); WHITE BLOOD COUNT 5.4 10^3/uL (4.3-11.0)
[2017-10-15 08:46] LABS: ALBUMIN 3.9 GM/DL (3.2-4.5); BILIRUBIN,TOTAL 0.5 MG/DL (0.1-1.0); CREATININE SERUM 1.05 MG/DL (0.60-1.30); POTASSIUM 3.9 MMOL/L (3.6-5.0); TOTAL PROTEIN 6.1 GM/DL (6.4-8.2)
[2017-10-28] MEDS ORDERED: DULO30CA3 PO (08:30)
== END 2017-11-12 | disposition home or self-care (01) ==
LOC: ONC 07:55
PROVIDERS: ATTEND Internal Medicine Hematology & Oncology
DX: Z51.11 Encounter for antineoplastic chemotherapy (principal); C85.86 Other specified types of non-Hodgkin lymphoma, intrapelvic lymph nodes; I10 Essential (primary) hypertension; M19.90 Unspecified osteoarthritis, unspecified site; Z79.899 Other long term (current) drug therapy
CPT/HCPCS: 36591; 80053; 83615; 85025; 96413; 96523

== ENCOUNTER 2017-10-28 08:30 | Outpatient (CLI) | payer OTHER ==
[~2017-10-28] VITALS: Ht 167.6 cm; Wt 67.6 kg
[~2017-10-28 08:30] MED LIST changes: -ACETAMINOPHEN 500 MG TAB (TYLENOL) CANCER CTR PO PRN; +DULO30CA3 PO; -NS IV 500 ML (CANCER CENTER) IV SCH; -SPIR25TA3 PO; +SPIR25TA5 PO; -diphenhydrAMINE 25 MG TAB (BENADRYL) CANCER CENTER PO SCH; -riTUXimab 500 MG, riTUXimab FOR IV INJ CONC 200 MG in NS (IVPB) CANCER CENTER ONLY 150 ML IV SCH
== END 2017-10-28 08:37 ==
LOC: PREOP 08:30
PROVIDERS: ATTEND Surgery
DX: Z01.818 Encounter for other preprocedural examination (principal); Z12.11 Encounter for screening for malignant neoplasm of colon

== ENCOUNTER 2018-01-27 09:04 | Outpatient (RCR) | payer OTHER ==
[2017-12-16 09:28] LABS: BASOPHILS % (AUTO) 0 % (0-10); EOSINOPHILS # (AUTO) 0.1 10^3/uL (0.0-0.3); EOSINOPHILS % (AUTO) 2 % (0-10); HEMATOCRIT 40 % (35-52); HEMOGLOBIN 13.7 G/DL (11.5-16.0); LYMPHOCYTES # (AUTO) 0.8 X 10^3 (1.0-4.0); LYMPHOCYTES % (AUTO) 16 % (12-44); MEAN CORPUSCULAR HEMOGLOBIN 33 PG (25-34); MEAN CORPUSCULAR HGB CONC 35 G/DL (32-36); MEAN CORPUSCULAR VOLUME 95 FL (80-99); MEAN PLATELET VOLUME 10.2 FL (7.4-10.4); MONOCYTES # (AUTO) 0.5 X 10^3 (0.0-1.0); MONOCYTES % (AUTO) 9 % (0-12); NEUTROPHILS # (AUTO) 3.4 X 10^3 (1.8-7.8); NEUTROPHILS % (AUTO) 72 % (42-75); PLATELET COUNT 282 10^3/uL (130-400); RED BLOOD COUNT 4.19 10^6/uL (4.35-5.85); WHITE BLOOD COUNT 4.8 10^3/uL (4.3-11.0)
[2017-12-16 09:57] LABS: ALANINE AMINOTRANSFERASE 15 U/L (0-55); ALBUMIN 4.1 GM/DL (3.2-4.5); ALKALINE PHOSPHATASE 67 U/L (40-136); BILIRUBIN,TOTAL 0.7 MG/DL (0.1-1.0); BUN/CREATININE RATIO 20; CALCIUM 9.3 MG/DL (8.5-10.1); CARBON DIOXIDE 24 MMOL/L (21-32); CHLORIDE 103 MMOL/L (98-107); CREATININE SERUM 0.83 MG/DL (0.60-1.30); GFR ESTIMATED > 60; GLUCOSE 97 MG/DL (70-105); POTASSIUM 4.1 MMOL/L (3.6-5.0); SODIUM 137 MMOL/L (135-145); TOTAL PROTEIN 6.7 GM/DL (6.4-8.2)
[~2018-01-27] VITALS: Ht 165.1 cm; Wt 76.7 kg
[~2018-01-27 09:04] MED LIST changes: +ACETAMINOPHEN 500 MG TAB (TYLENOL) CANCER CTR PO PRN; +diphenhydrAMINE 25 MG TAB (BENADRYL) CANCER CENTER PO SCH; +riTUXimab 500 MG, riTUXimab FOR IV INJ CONC 200 MG in NS (IVPB) CANCER CENTER ONLY 150 ML IV SCH
== END 2018-02-11 | disposition home or self-care (01) ==
LOC: ONC 09:04
PROVIDERS: ATTEND Internal Medicine Hematology & Oncology
DX: Z51.11 Encounter for antineoplastic chemotherapy (principal); C85.86 Other specified types of non-Hodgkin lymphoma, intrapelvic lymph nodes; I10 Essential (primary) hypertension; M19.90 Unspecified osteoarthritis, unspecified site; Z79.899 Other long term (current) drug therapy; Z45.2 Encounter for adjustment and management of vascular access device
CPT/HCPCS: 36591; 80053; 83615; 85025; 96413; 96523

== ENCOUNTER → 2018-03-18 | Outpatient (CLI) | payer OTHER ==
[~2018-03-18] MED LIST changes: -ACETAMINOPHEN 500 MG TAB (TYLENOL) CANCER CTR PO PRN; -diphenhydrAMINE 25 MG TAB (BENADRYL) CANCER CENTER PO SCH; -riTUXimab 500 MG, riTUXimab FOR IV INJ CONC 200 MG in NS (IVPB) CANCER CENTER ONLY 150 ML IV SCH
--- NOTE | 2018-03-18 17:24 | Diagnostic Imaging Report ---
PROCEDURE: CT chest, abdomen, and pelvis with contrast. TECHNIQUE: Multiple contiguous axial images were obtained through the chest, abdomen, and pelvis after the administration of intravenous contrast. INDICATION: Non-Hodgkin's lymphoma. Exam compared 01/25/2016. FINDINGS: Chest: Chronic subcentimeter subpleural airspace nodule in the left upper lobe posterolaterally unchanged. No new, dominant or suspect lung mass. There is no thoracic lymphadenopathy, effusion or abscess. The vascular structures patent and nonacute. No chest wall abnormality. Abdomen and pelvis: There is some chronic postsurgical distortion and scarring of the fat in the left inguinal canal. No findings to suggest residual or recurrent abdominopelvic lymphadenopathy. Stable hepatic cysts. The spleen negative. There is no adrenal mass. The pancreas unremarkable. Tiny cyst off the upper pole of left kidney chronic. No hydronephrosis. There is no bowel, biliary or urinary tract obstruction. There is no ascites. Large bowel distally is nondistended limiting its evaluation. No perienteric or pericolonic edema. No suspect lytic or sclerotic bone lesion. IMPRESSION: 1. Chest: Chronic subpleural airspace left upper lobe nodule. No evidence for neoplastic recurrence, acute or suspect finding. 2. Abdomen and pelvis: Stable postsurgical changes to the left groin. No evidence for recurrent lymphadenopathy or suspect mass. Dictated by: Dictated on workstation # [id number]
== END ==
LOC: RAD 13:44
PROVIDERS: ATTEND Internal Medicine Hematology & Oncology
DX: Z01.89 Encounter for other specified special examinations (principal); C85.86 Other specified types of non-Hodgkin lymphoma, intrapelvic lymph nodes; R91.8 Other nonspecific abnormal finding of lung field
CPT/HCPCS: 71260; 74177

== ENCOUNTER 2018-03-19 13:02 | Outpatient (RCR) | payer OTHER ==
[2018-03-18 15:30] LABS: BASOPHILS % (AUTO) 0 % (0-10); EOSINOPHILS # (AUTO) 0.1 10^3/uL (0.0-0.3); EOSINOPHILS % (AUTO) 3 % (0-10); HEMATOCRIT 40 % (35-52); HEMOGLOBIN 13.9 G/DL (11.5-16.0); LYMPHOCYTES # (AUTO) 0.9 X 10^3 (1.0-4.0); LYMPHOCYTES % (AUTO) 17 % (12-44); MEAN CORPUSCULAR HEMOGLOBIN 33 PG (25-34); MEAN CORPUSCULAR HGB CONC 35 G/DL (32-36); MEAN CORPUSCULAR VOLUME 95 FL (80-99); MEAN PLATELET VOLUME 10.4 FL (7.4-10.4); MONOCYTES # (AUTO) 0.5 X 10^3 (0.0-1.0); MONOCYTES % (AUTO) 10 % (0-12); NEUTROPHILS # (AUTO) 3.7 X 10^3 (1.8-7.8); NEUTROPHILS % (AUTO) 70 % (42-75); PLATELET COUNT 265 10^3/uL (130-400); RED BLOOD COUNT 4.23 10^6/uL (4.35-5.85); RED CELL DISTRIBUTION WIDTH 12.1 % (10.0-14.5); WHITE BLOOD COUNT 5.3 10^3/uL (4.3-11.0)
[2018-03-18 15:56] LABS: ALANINE AMINOTRANSFERASE 20 U/L (0-55); ALBUMIN 4.3 GM/DL (3.2-4.5); ALKALINE PHOSPHATASE 71 U/L (40-136); BILIRUBIN,TOTAL 0.7 MG/DL (0.1-1.0); BUN/CREATININE RATIO 15; CALCIUM 9.4 MG/DL (8.5-10.1); CARBON DIOXIDE 23 MMOL/L (21-32); CHLORIDE 102 MMOL/L (98-107); CREATININE SERUM 0.79 MG/DL (0.60-1.30); GFR ESTIMATED > 60; GLUCOSE 90 MG/DL (70-105); POTASSIUM 3.9 MMOL/L (3.6-5.0); SODIUM 136 MMOL/L (135-145); TOTAL PROTEIN 6.7 GM/DL (6.4-8.2)
== END 2018-04-12 | disposition home or self-care (01) ==
LOC: ONC 13:02
PROVIDERS: ATTEND Internal Medicine Hematology & Oncology
DX: C85.86 Other specified types of non-Hodgkin lymphoma, intrapelvic lymph nodes (principal); I10 Essential (primary) hypertension; M19.90 Unspecified osteoarthritis, unspecified site; Z79.899 Other long term (current) drug therapy; Z45.2 Encounter for adjustment and management of vascular access device
CPT/HCPCS: 36591; 80053; 83615; 85025; 99213

== ENCOUNTER 2018-04-09 11:13 | Outpatient (RCR) | payer OTHER | END 2018-04-10 15:55 | disposition home or self-care (01) | PROVIDERS: ATTEND Physician Assistant Medical | DX: M70.71 Other bursitis of hip, right hip (principal); M54.40 Lumbago with sciatica, unspecified side; M25.561 Pain in right knee ==

== ENCOUNTER 2018-04-19 18:46 | Emergency (ER) | payer OTHER ==
[~2018-04-19] VITALS: Ht 167.6 cm; Wt 77.1 kg
--- OUTSIDE RECORDS SUMMARY | 2018-04-19 18:54 | XMS REPORT | Continuity of Care Document ---
Author Author [facility] of [facility] Address Unknown Phone Unavailable Allergies Active Description Code Type Severity Reaction Onset Reported/Identified Relationship to Patient Clinical Status Yes Penicillins [id number] Drug Allergy Unknown N/A 12/01/2015 Yes Penicillins [id number] Drug Allergy Mild RASH 10/28/2017 Medications There is no data. Problems Date Dx Coded Attending Type Code Diagnosis Diagnosed By REYNA SAUNDERS Ot M25.562 PAIN IN LEFT KNEE REYNA SAUNDERS Ot M70.72 OTHER BURSITIS OF HIP, LEFT HIP 06/12/1554 KEITH WALKER Ot M25.561 PAIN IN RIGHT KNEE 06/12/1554 KEITH WALKER Ot M54.40 LUMBAGO WITH SCIATICA, UNSPECIFIED SIDE 06/12/1554 KEITH WALKER Ot M70.71 OTHER BURSITIS OF HIP, RIGHT HIP 04/22/2013 ANGEL ARANGO DO V04.81 FLU SHOT 05/31/2014 REYNA SAUNDERS Ot V54.12 AFTERCARE HEALING TRAUMATIC FX LOWER ARM 05/31/2014 REYNA SAUNDERS Ot V57.1 PHYSICAL THERAPY NEC 08/18/2014 MELI ZHOU DOLINE S Ot 793.80 08/22/2015 MANJEET ZHOU DOQUELINE S Ot 793.80 08/23/2015 MANJEET ZHOU DOQUELINE S Ot M25.561 08/23/2015 MANJEET ZHOU DOQUELINE S Ot M25.562 08/23/2015 MANJEET ZHOU DOQUELINE S Ot M25.571 08/23/2015 RUDINDMANJEET CHENEY DOQUELINE S Ot M25.572 08/23/2015 MANJEET ZHOU DOQUELINE S Ot M25.561 08/23/2015 MANJEET ZHOU DOQUELINE S Ot M25.562 08/23/2015 ORENDER DO, CHERYL S Ot M25.571 08/23/2015 ORENDER DO, CHERYL S Ot M25.572 08/24/2015 ORENDER DO, CHERYL S Ot M25.561 08/24/2015 ORENDER DO, CHERYL S Ot M25.562 08/24/2015 ORENDER DO, CHERYL S Ot M25.571 08/24/2015 ORENDER DO, CHERYL S Ot M25.572 09/05/2015 ORENDER DO, CHERYL S Ot M25.561 09/05/2015 ORENDER DO, CHERYL S Ot M25.562 09/05/2015 ORENDER DO, CHERYL S Ot M25.571 09/05/2015 ORENDER DO, CHERYL S Ot M25.572 10/24/2015 DARIUSZ ANTOINE SERVICE LIAISON REPRESENTATIVE Ot R10.32 10/24/2015 DARIUSZ ANTOINE SERVICE LIAISON REPRESENTATIVE Ot R19.04 11/07/2015 DARIUSZ ANTOINE SERVICE LIAISON REPRESENTATIVE Ot R10.32 LEFT LOWER QUADRANT PAIN 11/07/2015 DARIUSZ ANTOINE SERVICE LIAISON REPRESENTATIVE Ot R19.04 LEFT LOWER QUADRANT ABDOMINAL SWELLING, 11/14/2015 DYLAN CASIANO, JANAY Christiansen Ot R59.0 LOCALIZED ENLARGED LYMPH NODES 11/17/2015 DYLAN CASIANO, JANAY Christiansen Ot R59.0 LOCALIZED ENLARGED LYMPH NODES 11/21/2015 DYLAN CASIANO, JANAY Christiansen Ot 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, UNSPECIFIED 11/24/2015 DYLAN CASIANO, JANAY Christiansen Ot R59.0 LOCALIZED ENLARGED LYMPH NODES 11/27/2015 ANDREITATYANA RECINOS N Ot C85.90 NON-HODGKIN LYMPHOMA, UNSPECIFIED, UNSPE 11/30/2015 ANDREITATYANA RECINOS N Ot C85.90 NON-HODGKIN LYMPHOMA, UNSPECIFIED, UNSPE 11/30/2015 ANDREI, BOBAN N Ot I10 ESSENTIAL (PRIMARY) HYPERTENSION 11/30/2015 ANDREITATYANA RECINOS N Ot M19.90 UNSPECIFIED OSTEOARTHRITIS, UNSPECIFIED 11/30/2015 ANDREITATYANA RECINOS N Ot Z79.899 OTHER EMBEDDED CASE MANAGER (CURRENT) DRUG THERAPY 12/01/2015 GARRET SEGUNDO BOAT PAINTER Ot 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, INTRA 12/01/2015 ANDREITATYANA RECINOS N Ot C85.90 NON-HODGKIN LYMPHOMA, UNSPECIFIED, UNSPE 12/01/2015 ANDREITATYANA RECINOS N Ot I10 ESSENTIAL (PRIMARY) HYPERTENSION 12/01/2015 ANDREITATYANA RECINOS N Ot M19.90 UNSPECIFIED OSTEOARTHRITIS, UNSPECIFIED 12/01/2015 ANDREI, BOBЕЛЕНА N Ot Z79.899 OTHER EMBEDDED CASE MANAGER (CURRENT) DRUG THERAPY 12/01/2015 GARRET SEGUNDO BOAT PAINTER Ot 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, INTRA 12/03/2015 ANDREITATYANA RECINOS N Ot 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, UNSP, NODES OF ING RE 12/03/2015 ANDREI, BOBЕЛЕНА N Ot E87.1 HYPO-OSMOLALITY AND HYPONATREMIA 12/03/2015 ANDREI, BOBЕЛЕНА N Ot E87.6 HYPOKALEMIA 12/03/2015 ANDREI, BOBAN N Ot I10 ESSENTIAL (PRIMARY) HYPERTENSION 12/03/2015 ANDREITATYANA RECINOS N Ot M16.0 BILATERAL PRIMARY OSTEOARTHRITIS OF HIP 12/03/2015 ANDREI, BOBЕЛЕНА N Ot M17.0 BILATERAL PRIMARY OSTEOARTHRITIS OF KNEE 12/03/2015 TATYANA FORBES N Ot R51 HEADACHE 12/03/2015 ANDREITATYANA RECINOS N Ot R91.1 SOLITARY PULMONARY NODULE 12/04/2015 ANDREITATYANA RECINOS N Ot C85.90 NON-HODGKIN LYMPHOMA, UNSPECIFIED, UNSPE 12/04/2015 ANDREI BOBAN N Ot I10 ESSENTIAL (PRIMARY) HYPERTENSION 12/04/2015 ANDREITATYANA N Ot M19.90 UNSPECIFIED OSTEOARTHRITIS, UNSPECIFIED 12/04/2015 ANDREILUCIANOAN N Ot Z79.899 OTHER EMBEDDED CASE MANAGER (CURRENT) DRUG THERAPY 12/04/2015 ANDREITATYANA N Ot C85.90 NON-HODGKIN LYMPHOMA, UNSPECIFIED, UNSPE 12/04/2015 ANDREI, BOBAN N Ot I10 ESSENTIAL (PRIMARY) HYPERTENSION 12/04/2015 ANDREI, BOBAN N Ot M19.90 UNSPECIFIED OSTEOARTHRITIS, UNSPECIFIED 12/04/2015 ANDREI, BOBAN N Ot Z79.899 OTHER EMBEDDED CASE MANAGER (CURRENT) DRUG THERAPY 12/06/2015 ANDREI BOBЕЛЕНА N Ot C85.90 NON-HODGKIN LYMPHOMA, UNSPECIFIED, UNSPE 12/06/2015 ANDREI BOBAN N Ot I10 ESSENTIAL (PRIMARY) HYPERTENSION 12/06/2015 ANDREI BOBЕЛЕНА N Ot M19.90 UNSPECIFIED OSTEOARTHRITIS, UNSPECIFIED 12/06/2015 ANDREI, BOBAN N Ot Z79.899 OTHER DETENTION (CURRENT) DRUG THERAPY 12/12/2015 ANDREI, BOBAN N Ot C85.90 NON-HODGKIN LYMPHOMA, UNSPECIFIED, UNSPE 12/12/2015 ANDREI BOBAN N Ot I10 ESSENTIAL (PRIMARY) HYPERTENSION 12/12/2015 ANDREI, BOBAN N Ot M19.90 UNSPECIFIED OSTEOARTHRITIS, UNSPECIFIED 12/12/2015 ANDREI, BOBAN N Ot Z79.899 OTHER EMBEDDED CASE MANAGER (CURRENT) DRUG THERAPY 12/12/2015 ANDREI, BOBAN N Ot C85.90 NON-HODGKIN LYMPHOMA, UNSPECIFIED, UNSPE 12/12/2015 GARRET SEGUNDO Ot 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, INTRA 12/14/2015 CHERYL ZHOU DO Ot M25.561 PAIN IN RIGHT KNEE 12/14/2015 CHERYL ZHOU DO Ot M25.562 PAIN IN LEFT KNEE 12/14/2015 CHERYL ZHOU DO S Ot M25.571 PAIN IN RIGHT ANKLE AND JOINTS OF RIGHT 12/14/2015 MARILYN ESCOBAR CHERYL S Ot M25.572 PAIN IN LEFT ANKLE AND JOINTS OF LEFT FO 12/14/2015 RUDINDER DO, CHERYL S Ot Z12.31 ENCNTR SCREEN MAMMOGRAM FOR MALIGNANT NE 12/14/2015 RUDINDER DO, CHERYL S Ot M25.561 PAIN IN RIGHT KNEE 12/14/2015 ORENDER DO, CHERYL S Ot M25.562 PAIN IN LEFT KNEE 12/14/2015 ORENDER DO, CHERYL S Ot M25.571 PAIN IN RIGHT ANKLE AND JOINTS OF RIGHT 12/14/2015 ORENDER DO, CHERYL S Ot M25.572 PAIN IN LEFT ANKLE AND JOINTS OF LEFT FO 12/14/2015 RUDINDER DO, CHERYL S Ot Z12.31 ENCNTR SCREEN MAMMOGRAM FOR MALIGNANT NE 12/19/2015 TATYANA FORBES Ot C85.90 NON-HODGKIN LYMPHOMA, UNSPECIFIED, UNSPE 12/19/2015 TATYANA FORBES N Ot I10 ESSENTIAL (PRIMARY) HYPERTENSION 12/19/2015 ANDREITATYANA N Ot M19.90 UNSPECIFIED OSTEOARTHRITIS, UNSPECIFIED 12/19/2015 ANDREI TATYANA N Ot Z79.899 OTHER EMBEDDED CASE MANAGER (CURRENT) DRUG THERAPY 12/21/2015 TATYANA FORBES N Ot C85.90 NON-HODGKIN LYMPHOMA, UNSPECIFIED, UNSPE 12/21/2015 ANDREI BOBAN N Ot I10 ESSENTIAL (PRIMARY) HYPERTENSION 12/21/2015 ANDREITATYANA N Ot M19.90 UNSPECIFIED OSTEOARTHRITIS, UNSPECIFIED 12/21/2015 ANDREITATYANA N Ot Z79.899 OTHER DETENTION (CURRENT) DRUG THERAPY 01/01/2016 GARRET SEGUNDO BOAT PAINTER Ot 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, UNSP, NODES OF ING RE 01/01/2016 GARRET SEGUNDO BOAT PAINTER Ot I10 ESSENTIAL (PRIMARY) HYPERTENSION 01/01/2016 GARRET SEGUNDO BOAT PAINTER Ot M16.0 BILATERAL PRIMARY OSTEOARTHRITIS OF HIP 01/01/2016 GARRET SEGUNDO BOAT PAINTER Ot M17.0 BILATERAL PRIMARY OSTEOARTHRITIS OF KNEE 01/04/2016 TATYANA FORBES N Ot C85.90 NON-HODGKIN LYMPHOMA, UNSPECIFIED, UNSPE 01/04/2016 ANDREI, BOBAN N Ot I10 ESSENTIAL (PRIMARY) HYPERTENSION 01/04/2016 ANDREILUCIANOAN N Ot M19.90 UNSPECIFIED OSTEOARTHRITIS, UNSPECIFIED 01/04/2016 ANDREI BOBAN N Ot Z79.899 OTHER EMBEDDED CASE MANAGER (CURRENT) DRUG THERAPY 01/24/2016 ANDREI BOBAN N Ot 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, INTRA 01/24/2016 ANDREILUCIANOAN N Ot Z51.81 ENCOUNTER FOR THERAPEUTIC DRUG LEVEL MON 01/24/2016 ANDREILUCIANOAN N Ot Z79.899 OTHER DETENTION (CURRENT) DRUG THERAPY 01/30/2016 ANDREI BOBAN N Ot 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, INTRA 02/02/2016 ANDREI, BOBAN N Ot 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, INTRA 02/02/2016 ANDREI, BOBAN N Ot Z51.81 ENCOUNTER FOR THERAPEUTIC DRUG LEVEL MON 02/02/2016 ANDREI BOBAN N Ot Z79.899 OTHER EMBEDDED CASE MANAGER (CURRENT) DRUG THERAPY 02/07/2016 ANDREI BOBAN N Ot C85.90 NON-HODGKIN LYMPHOMA, UNSPECIFIED, UNSPE 02/07/2016 ANDREI BOBAN N Ot I10 ESSENTIAL (PRIMARY) HYPERTENSION 02/07/2016 ANDREI BOBAN N Ot M19.90 UNSPECIFIED OSTEOARTHRITIS, UNSPECIFIED 02/07/2016 ANDREI BOBAN N Ot Z79.899 OTHER DETENTION (CURRENT) DRUG THERAPY 02/09/2016 GARRET SEGUNDO BOAT PAINTER Ot R05 COUGH 02/09/2016 ANDREI BOBAN N Ot 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, INTRA 02/12/2016 GARRET SEGUNDO BOAT PAINTER Ot R05 COUGH 02/13/2016 GARRET SEGUNDO BOAT PAINTER Ot R05 COUGH 02/14/2016 GARRET SEGUNDO BOAT PAINTER Ot R05 COUGH 02/21/2016 ANDREI, BOBAN N Ot C85.90 NON-HODGKIN LYMPHOMA, UNSPECIFIED, UNSPE 02/21/2016 ANDREI BOBAN N Ot I10 ESSENTIAL (PRIMARY) HYPERTENSION 02/21/2016 ANDREI, BOBAN N Ot M19.90 UNSPECIFIED OSTEOARTHRITIS, UNSPECIFIED 02/21/2016 ANDREI, BOBAN N Ot Z51.11 ENCOUNTER FOR ANTINEOPLASTIC CHEMOTHERAP 02/21/2016 ANDREI BOBAN N Ot Z79.899 OTHER EMBEDDED CASE MANAGER (CURRENT) DRUG THERAPY 02/22/2016 GARRET SEGUNDO BOAT PAINTER Ot R05 COUGH 02/23/2016 ANDREI, BOBAN N Ot C85.90 NON-HODGKIN LYMPHOMA, UNSPECIFIED, UNSPE 02/23/2016 ANDREI, BOBAN N Ot I10 ESSENTIAL (PRIMARY) HYPERTENSION 02/23/2016 ANDREI, BOBAN N Ot M19.90 UNSPECIFIED OSTEOARTHRITIS, UNSPECIFIED 02/23/2016 ANDREI, BOBAN N Ot Z79.899 OTHER DETENTION (CURRENT) DRUG THERAPY 03/05/2016 GARRET SEGUNDO BOAT PAINTER Ot 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, UNSP, NODES OF ING RE 03/05/2016 GARRET SEGUNDO BOAT PAINTER Ot I10 ESSENTIAL (PRIMARY) HYPERTENSION 03/05/2016 GARRET SEGUNDO BOAT PAINTER Ot Z79.899 OTHER DETENTION (CURRENT) DRUG THERAPY 03/25/2016 ANDREI, BOBAN N Ot C85.90 NON-HODGKIN LYMPHOMA, UNSPECIFIED, UNSPE 03/25/2016 ANDREI, BOBAN N Ot I10 ESSENTIAL (PRIMARY) HYPERTENSION 03/25/2016 ANDREI, BOBAN N Ot M19.90 UNSPECIFIED OSTEOARTHRITIS, UNSPECIFIED 03/25/2016 ANDREI, BOBAN N Ot Z79.899 OTHER DETENTION (CURRENT) DRUG THERAPY 03/26/2016 RAMÓN MCCLURE SERVICE LIAISON REPRESENTATIVE Ot R09.82 POSTNASAL DRIP 03/31/2016 ANDREI, LUCIANOAN N Ot C85.90 NON-HODGKIN LYMPHOMA, UNSPECIFIED, UNSPE 03/31/2016 ANDREI, BOBAN N Ot I10 ESSENTIAL (PRIMARY) HYPERTENSION 03/31/2016 ANDREI, BOBAN N Ot M19.90 UNSPECIFIED OSTEOARTHRITIS, UNSPECIFIED 03/31/2016 ANDREI, BOBAN N Ot Z79.899 OTHER EMBEDDED CASE MANAGER (CURRENT) DRUG THERAPY 04/10/2016 RAMÓN MCCLURE SERVICE LIAISON REPRESENTATIVE Ot R09.82 POSTNASAL DRIP 04/22/2016 ANDREI, BOBAN N Ot C85.90 NON-HODGKIN LYMPHOMA, UNSPECIFIED, UNSPE 04/22/2016 ANDREI, BOBAN N Ot I10 ESSENTIAL (PRIMARY) HYPERTENSION 04/22/2016 ANDREI, BOBAN N Ot M19.90 UNSPECIFIED OSTEOARTHRITIS, UNSPECIFIED 04/22/2016 ANDREILUCIANOAN N Ot Z79.899 OTHER EMBEDDED CASE MANAGER (CURRENT) DRUG THERAPY 04/26/2016 ANDREILUCIANOAN N Ot C85.90 NON-HODGKIN LYMPHOMA, UNSPECIFIED, UNSPE 04/26/2016 ANDREI BOBAN N Ot I10 ESSENTIAL (PRIMARY) HYPERTENSION 04/26/2016 ANDREILUCIANOAN N Ot M19.90 UNSPECIFIED OSTEOARTHRITIS, UNSPECIFIED 04/26/2016 ANDREI BOBЕЛЕНА N Ot Z79.899 OTHER DETENTION (CURRENT) DRUG THERAPY 05/23/2016 ANDREI BOBAN N Ot C85.90 NON-HODGKIN LYMPHOMA, UNSPECIFIED, UNSPE 05/23/2016 ANDREI, BOBAN N Ot I10 ESSENTIAL (PRIMARY) HYPERTENSION 05/23/2016 ANDREI BOBЕЛЕНА N Ot M19.90 UNSPECIFIED OSTEOARTHRITIS, UNSPECIFIED 05/23/2016 ANDREITATYANA N Ot Z45.2 ENCOUNTER FOR ADJUSTMENT AND MANAGEMENT 05/23/2016 ANDREITATYANA N Ot Z79.899 OTHER EMBEDDED CASE MANAGER (CURRENT) DRUG THERAPY 05/23/2016 ANDREI BOBAN N Ot C85.90 NON-HODGKIN LYMPHOMA, UNSPECIFIED, UNSPE 05/23/2016 ANDREI BOBAN N Ot I10 ESSENTIAL (PRIMARY) HYPERTENSION 05/23/2016 ANDREI BOBЕЛЕНА N Ot M19.90 UNSPECIFIED OSTEOARTHRITIS, UNSPECIFIED 05/23/2016 ANDREI BOBAN N Ot Z45.2 ENCOUNTER FOR ADJUSTMENT AND MANAGEMENT 05/23/2016 ANDREITATYANA N Ot Z79.899 OTHER DETENTION (CURRENT) DRUG THERAPY 07/10/2016 CHERYL ZHOU DO S Ot 793.80 UNSPEC ABNORMAL MAMMOGRAM 07/10/2016 MELI ZHOU DOLINE S Ot M25.561 PAIN IN RIGHT KNEE 07/10/2016 MELI ZHOU DOLINE S Ot M25.562 PAIN IN LEFT KNEE 07/10/2016 MELI ZHOU DOLINE S Ot M25.571 PAIN IN RIGHT ANKLE AND JOINTS OF RIGHT 07/10/2016 MELI ZHOU DOLINE S Ot M25.572 PAIN IN LEFT ANKLE AND JOINTS OF LEFT FO 07/10/2016 MELI ZHOU DOLINE S Ot Z12.31 ENCNTR SCREEN MAMMOGRAM FOR MALIGNANT NE 07/10/2016 DARIUSZ ANTOINE Rajat SERVICE LIAISON REPRESENTATIVE Ot R10.32 LEFT LOWER QUADRANT PAIN 07/10/2016 DARIUSZ ANTOINE SERVICE LIAISON REPRESENTATIVE Ot R19.04 LEFT LOWER QUADRANT ABDOMINAL SWELLING, 07/10/2016 TATYANA FORBES Ot C85.90 NON-HODGKIN LYMPHOMA, UNSPECIFIED, UNSPE 07/10/2016 GARRET SEGUNDO BOAT PAINTER Ot 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, INTRA 07/10/2016 GARRET SEGUNDO BOAT PAINTER Ot 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, UNSP, NODES OF ING RE 07/10/2016 GARRET SEGUNDO S BOAT PAINTER Ot I10 ESSENTIAL (PRIMARY) HYPERTENSION 07/10/2016 GARRET SEGUNDO BOAT PAINTER Ot M16.0 BILATERAL PRIMARY OSTEOARTHRITIS OF HIP 07/10/2016 GARRET SEGUNDO BOAT PAINTER Ot M17.0 BILATERAL PRIMARY OSTEOARTHRITIS OF KNEE 07/10/2016 TATYANA FORBES Ot 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, INTRA 07/10/2016 TATYANA FORBES Ot 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, INTRA 07/10/2016 TATYANA FORBES Ot Z51.81 ENCOUNTER FOR THERAPEUTIC DRUG LEVEL MON 07/10/2016 TATYANA FORBES Ot Z79.899 OTHER DETENTION (CURRENT) DRUG THERAPY 07/10/2016 GARRET SEGUNDO BOAT PAINTER Ot R05 COUGH 07/10/2016 GARRET SEGUNDO BOAT PAINTER Ot 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, UNSP, NODES OF ING RE 07/10/2016 GARRET SEGUNDO BOAT PAINTER Ot I10 ESSENTIAL (PRIMARY) HYPERTENSION 07/10/2016 GARRET SEGUNDO BOAT PAINTER Ot Z79.899 OTHER EMBEDDED CASE MANAGER (CURRENT) DRUG THERAPY 07/10/2016 RAMÓN MCCLURE SERVICE LIAISON REPRESENTATIVE Ot R09.82 POSTNASAL DRIP 07/10/2016 TAYTANA FORBES Ot C85.90 NON-HODGKIN LYMPHOMA, UNSPECIFIED, UNSPE 07/10/2016 TATYANA FORBES Ot I10 ESSENTIAL (PRIMARY) HYPERTENSION 07/10/2016 TATYANA FORBES Ot M19.90 UNSPECIFIED OSTEOARTHRITIS, UNSPECIFIED 07/10/2016 ANDREI, BOBAN N Ot Z45.2 ENCOUNTER FOR ADJUSTMENT AND MANAGEMENT 07/10/2016 ANDREI, TATYANA N Ot Z79.899 OTHER DETENTION (CURRENT) DRUG THERAPY 07/18/2016 ANDREITATYANA N Ot C85.90 NON-HODGKIN LYMPHOMA, UNSPECIFIED, UNSPE 07/18/2016 NADREI, LUCIANOAN N Ot I10 ESSENTIAL (PRIMARY) HYPERTENSION 07/18/2016 ANDREITATYANA N Ot M19.90 UNSPECIFIED OSTEOARTHRITIS, UNSPECIFIED 07/18/2016 ANDREITATYANA N Ot Z45.2 ENCOUNTER FOR ADJUSTMENT AND MANAGEMENT 07/18/2016 ANDREITATYANA N Ot Z79.899 OTHER DETENTION (CURRENT) DRUG THERAPY 07/24/2016 ANDREITATYANA N Ot C85.90 NON-HODGKIN LYMPHOMA, UNSPECIFIED, UNSPE 07/24/2016 ANDREITATYANA N Ot I10 ESSENTIAL (PRIMARY) HYPERTENSION 07/24/2016 ANDREITATYANA RECINOS N Ot M19.90 UNSPECIFIED OSTEOARTHRITIS, UNSPECIFIED 07/24/2016 ANDREITATYANA N Ot Z45.2 ENCOUNTER FOR ADJUSTMENT AND MANAGEMENT 07/24/2016 ANDREITATYANA N Ot Z51.11 ENCOUNTER FOR ANTINEOPLASTIC CHEMOTHERAP 07/24/2016 ANDREITATYANA N Ot Z79.899 OTHER EMBEDDED CASE MANAGER (CURRENT) DRUG THERAPY 07/30/2016 TATYANA FORBES N Ot C85.90 NON-HODGKIN LYMPHOMA, UNSPECIFIED, UNSPE 07/30/2016 ANDREITATYANA N Ot I10 ESSENTIAL (PRIMARY) HYPERTENSION 07/30/2016 TATYANA FORBES N Ot M19.90 UNSPECIFIED OSTEOARTHRITIS, UNSPECIFIED 07/30/2016 ANDREITATYANA N Ot Z45.2 ENCOUNTER FOR ADJUSTMENT AND MANAGEMENT 07/30/2016 ANDREITATYANA N Ot Z51.11 ENCOUNTER FOR ANTINEOPLASTIC CHEMOTHERAP 07/30/2016 ANDREITATYANA N Ot Z79.899 OTHER EMBEDDED CASE MANAGER (CURRENT) DRUG THERAPY 08/16/2016 TATYANA FORBES N Ot C85.90 NON-HODGKIN LYMPHOMA, UNSPECIFIED, UNSPE 08/16/2016 ANDREILUCIANOAN N Ot I10 ESSENTIAL (PRIMARY) HYPERTENSION 08/16/2016 TATYANA FORBES N Ot M19.90 UNSPECIFIED OSTEOARTHRITIS, UNSPECIFIED 08/16/2016 ANDREITATYANA N Ot Z45.2 ENCOUNTER FOR ADJUSTMENT AND MANAGEMENT 08/16/2016 TATYANA FORBES N Ot Z79.899 OTHER EMBEDDED CASE MANAGER (CURRENT) DRUG THERAPY 09/12/2016 TATYANA FORBES Rajat Ot C85.90 NON-HODGKIN LYMPHOMA, UNSPECIFIED, UNSPE 09/12/2016 TATYANA FORBES N Ot I10 ESSENTIAL (PRIMARY) HYPERTENSION 09/12/2016 TATYANA FORBES N Ot M19.90 UNSPECIFIED OSTEOARTHRITIS, UNSPECIFIED 09/12/2016 TATYANA FORBES Rajat Ot Z45.2 ENCOUNTER FOR ADJUSTMENT AND MANAGEMENT 09/12/2016 TATYANA FORBES N Ot Z79.899 OTHER DETENTION (CURRENT) DRUG THERAPY 09/23/2016 TATYANA FORBES N Ot C85.90 NON-HODGKIN LYMPHOMA, UNSPECIFIED, UNSPE 09/23/2016 TATYANA FORBES N Ot I10 ESSENTIAL (PRIMARY) HYPERTENSION 09/23/2016 TATYANA FORBES Rajat Ot M19.90 UNSPECIFIED OSTEOARTHRITIS, UNSPECIFIED 09/23/2016 TATYANA FORBES Rajat Ot Z45.2 ENCOUNTER FOR ADJUSTMENT AND MANAGEMENT 09/23/2016 TATYANA FORBES Rajat Ot Z79.899 OTHER EMBEDDED CASE MANAGER (CURRENT) DRUG THERAPY 11/13/2016 TATYANA FORBES N Ot C85.90 NON-HODGKIN LYMPHOMA, UNSPECIFIED, UNSPE 11/13/2016 TATYANA FORBES Rajat Ot I10 ESSENTIAL (PRIMARY) HYPERTENSION 11/13/2016 TATYANA FORBES N Ot M19.90 UNSPECIFIED OSTEOARTHRITIS, UNSPECIFIED 11/13/2016 TATYANA FORBES Rajat Ot Z45.2 ENCOUNTER FOR ADJUSTMENT AND MANAGEMENT 11/13/2016 TATYANA FORBES Rajat Ot Z79.899 OTHER EMBEDDED CASE MANAGER (CURRENT) DRUG THERAPY 12/01/2016 GARRET SEGUNDO BOAT PAINTER Ot 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, INTRA 12/01/2016 GARRET SEGUNDOP Ot 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, INTRA 12/01/2016 GARRET SEGUNDO BOAT PAINTER Ot 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, INTRA 12/02/2016 CHERYL ZHOU DO Ot 793.80 UNSPEC ABNORMAL MAMMOGRAM 12/02/2016 CHERYL ZHOU DO Ot M25.561 PAIN IN RIGHT KNEE 12/02/2016 CHERYL ZHOU DO S Ot M25.562 PAIN IN LEFT KNEE 12/02/2016 CHERYL ZHOU DO S Ot M25.571 PAIN IN RIGHT ANKLE AND JOINTS OF RIGHT 12/02/2016 CHERYL ZHOU DO S Ot M25.572 PAIN IN LEFT ANKLE AND JOINTS OF LEFT FO 12/02/2016 CHERYL ZHOU DO S Ot Z12.31 ENCNTR SCREEN MAMMOGRAM FOR MALIGNANT NE 12/02/2016 DARIUSZ ANTOINE SERVICE LIAISON REPRESENTATIVE Ot R10.32 LEFT LOWER QUADRANT PAIN 12/02/2016 DARIUSZ ANTOINE SERVICE LIAISON REPRESENTATIVE Ot R19.04 LEFT LOWER QUADRANT ABDOMINAL SWELLING, 12/02/2016 TATYANA FORBES Ot C85.90 NON-HODGKIN LYMPHOMA, UNSPECIFIED, UNSPE 12/02/2016 GARRET SEGUNDOP Ot 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, INTRA 12/02/2016 GARRET SEGUNDOP Ot 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, UNSP, NODES OF ING RE 12/02/2016 GARRET SEGUNDO BOAT PAINTER Ot I10 ESSENTIAL (PRIMARY) HYPERTENSION 12/02/2016 GARRET SEGUNDOP Ot M16.0 BILATERAL PRIMARY OSTEOARTHRITIS OF HIP 12/02/2016 GARRET SEGUNDOP Ot M17.0 BILATERAL PRIMARY OSTEOARTHRITIS OF KNEE 12/02/2016 TATYANA FORBES Ot 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, INTRA 12/02/2016 TATYANA FORBES Ot 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, INTRA 12/02/2016 TATYANA FORBES Ot Z51.81 ENCOUNTER FOR THERAPEUTIC DRUG LEVEL MON 12/02/2016 TATYANA FORBES Ot Z79.899 OTHER DETENTION (CURRENT) DRUG THERAPY 12/02/2016 GARRET SEGUNDOP Ot R05 COUGH 12/02/2016 GARRET SEGUNDOP Ot 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, UNSP, NODES OF ING RE 12/02/2016 GARRET SEGUNDO BOAT PAINTER Ot I10 ESSENTIAL (PRIMARY) HYPERTENSION 12/02/2016 GARRET SEGUNDO BOAT PAINTER Ot Z79.899 OTHER EMBEDDED CASE MANAGER (CURRENT) DRUG THERAPY 12/02/2016 RAMÓN MCCLURE APRN Ot R09.82 POSTNASAL DRIP 12/02/2016 ANDREITATYANA N Ot C85.90 NON-[place] LYMPHOMA, UNSPECIFIED, UNSPE 12/02/2016 ANDREITATYANA N Ot I10 ESSENTIAL (PRIMARY) HYPERTENSION 12/02/2016 ANDREITATYANA N Ot M19.90 UNSPECIFIED OSTEOARTHRITIS, UNSPECIFIED 12/02/2016 ANDREITATYANA N Ot Z45.2 ENCOUNTER FOR ADJUSTMENT AND MANAGEMENT 12/02/2016 ANDREI BOBAN N Ot Z79.899 OTHER DETENTION (CURRENT) DRUG THERAPY 12/17/2016 ANDREI, BOBAN N Ot C85.90 NON-H[place]IN LYMPHOMA, UNSPECIFIED, UNSPE 12/17/2016 ANDREI BOBЕЛЕНА N Ot I10 ESSENTIAL (PRIMARY) HYPERTENSION 12/17/2016 ANDREI BOBЕЛЕНА N Ot M19.90 UNSPECIFIED OSTEOARTHRITIS, UNSPECIFIED 12/17/2016 ANDREITTAYANA N Ot Z45.2 ENCOUNTER FOR ADJUSTMENT AND MANAGEMENT 12/17/2016 ANDREITATYANA N Ot Z79.899 OTHER DETENTION (CURRENT) DRUG THERAPY 12/27/2016 ANDREI BOBAN N Ot C85.90 NON-H[place]GKIN LYMPHOMA, UNSPECIFIED, UNSPE 12/27/2016 ANDREI BOBЕЛЕНА N Ot I10 ESSENTIAL (PRIMARY) HYPERTENSION 12/27/2016 ANDREI BOBЕЛЕНА N Ot M19.90 UNSPECIFIED OSTEOARTHRITIS, UNSPECIFIED 12/27/2016 ANDREI BOBЕЛЕНА N Ot Z45.2 ENCOUNTER FOR ADJUSTMENT AND MANAGEMENT 12/27/2016 ANDREITATYANA N Ot Z79.899 OTHER DETENTION (CURRENT) DRUG THERAPY 01/02/2017 ANDREI, BOBAN N Ot C85.90 NON-HODGKIN LYMPHOMA, UNSPECIFIED, UNSPE 01/02/2017 ANDREI, BOBAN N Ot I10 ESSENTIAL (PRIMARY) HYPERTENSION 01/02/2017 ANDREI, BOBAN N Ot M19.90 UNSPECIFIED OSTEOARTHRITIS, UNSPECIFIED 01/02/2017 ANDREI BOBAN N Ot Z45.2 ENCOUNTER FOR ADJUSTMENT AND MANAGEMENT 01/02/2017 ANDREI BOBAN N Ot Z79.899 OTHER EMBEDDED CASE MANAGER (CURRENT) DRUG THERAPY 02/27/2017 ANDREI BOBAN N Ot C85.90 NON-H[place]IN LYMPHOMA, UNSPECIFIED, UNSPE 02/27/2017 ANDREI BOBAN N Ot I10 ESSENTIAL (PRIMARY) HYPERTENSION 02/27/2017 ANDREI, BOBAN N Ot M19.90 UNSPECIFIED OSTEOARTHRITIS, UNSPECIFIED 02/27/2017 ANDREI BOBAN N Ot Z45.2 ENCOUNTER FOR ADJUSTMENT AND MANAGEMENT 02/27/2017 ANDREILUCIANO RECINOSAN N Ot Z79.899 OTHER EMBEDDED CASE MANAGER (CURRENT) DRUG THERAPY 03/02/2017 ANDREI BOBAN N Ot C85.90 NON-H[place] LYMPHOMA, UNSPECIFIED, UNSPE 03/02/2017 ANDREI, BOBAN N Ot I10 ESSENTIAL (PRIMARY) HYPERTENSION 03/02/2017 ANDREILUCIANOAN N Ot M19.90 UNSPECIFIED OSTEOARTHRITIS, UNSPECIFIED 03/02/2017 ANDREI BOBAN N Ot Z45.2 ENCOUNTER FOR ADJUSTMENT AND MANAGEMENT 03/02/2017 ANDREI BOBAN N Ot Z51.11 ENCOUNTER FOR ANTINEOPLASTIC CHEMOTHERAP 03/02/2017 ANDREI BOBAN N Ot Z79.899 OTHER EMBEDDED CASE MANAGER (CURRENT) DRUG THERAPY 03/26/2017 ANDREI BOBAN N Ot C85.90 NON-H[place]IN LYMPHOMA, UNSPECIFIED, UNSPE 03/26/2017 NADREI BOBAN N Ot I10 ESSENTIAL (PRIMARY) HYPERTENSION 03/26/2017 ANDREI BOBAN N Ot M19.90 UNSPECIFIED OSTEOARTHRITIS, UNSPECIFIED 03/26/2017 ANDREI BOBAN N Ot Z45.2 ENCOUNTER FOR ADJUSTMENT AND MANAGEMENT 03/26/2017 ANDREI BOBAN N Ot Z79.899 OTHER EMBEDDED CASE MANAGER (CURRENT) DRUG THERAPY 04/11/2017 ANDREI BOBAN N Ot C85.90 NON-H[place]GKIN LYMPHOMA, UNSPECIFIED, UNSPE 04/11/2017 ANDREI BOBAN N Ot I10 ESSENTIAL (PRIMARY) HYPERTENSION 04/11/2017 ANDREI, BOBAN N Ot M19.90 UNSPECIFIED OSTEOARTHRITIS, UNSPECIFIED 04/11/2017 ANDREI BOBAN N Ot Z45.2 ENCOUNTER FOR ADJUSTMENT AND MANAGEMENT 04/11/2017 ANDREI BOBAN N Ot Z51.11 ENCOUNTER FOR ANTINEOPLASTIC CHEMOTHERAP 04/11/2017 ANDREI BOBAN N Ot Z79.899 OTHER DETENTION (CURRENT) DRUG THERAPY 04/12/2017 ANDREI, BOBAN N Ot C85.90 NON-H[place]IN LYMPHOMA, UNSPECIFIED, UNSPE 04/12/2017 ANDREI, BOBAN N Ot I10 ESSENTIAL (PRIMARY) HYPERTENSION 04/12/2017 ANDREI, BOBAN N Ot M19.90 UNSPECIFIED OSTEOARTHRITIS, UNSPECIFIED 04/12/2017 ANDREI BOBAN N Ot Z45.2 ENCOUNTER FOR ADJUSTMENT AND MANAGEMENT 04/12/2017 ANDREI BOBAN N Ot Z79.899 OTHER EMBEDDED CASE MANAGER (CURRENT) DRUG THERAPY 04/18/2017 ANDREI, BOBAN N Ot C85.90 NON-H[place]IN LYMPHOMA, UNSPECIFIED, UNSPE 04/18/2017 ANDREI BOBAN N Ot I10 ESSENTIAL (PRIMARY) HYPERTENSION 04/18/2017 ANDREI, BOBAN N Ot M19.90 UNSPECIFIED OSTEOARTHRITIS, UNSPECIFIED 04/18/2017 ANDREI BOBAN N Ot Z45.2 ENCOUNTER FOR ADJUSTMENT AND MANAGEMENT 04/18/2017 ANDERI, BOBAN N Ot Z79.899 OTHER EMBEDDED CASE MANAGER (CURRENT) DRUG THERAPY 04/28/2017 ANDREI, BOBAN N Ot 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, INTRA 04/28/2017 ANDREI BOBAN N Ot I10 ESSENTIAL (PRIMARY) HYPERTENSION 04/28/2017 ANDREI, BOBAN N Ot M19.90 UNSPECIFIED OSTEOARTHRITIS, UNSPECIFIED 04/28/2017 ANDREI, BOBAN N Ot Z51.11 ENCOUNTER FOR ANTINEOPLASTIC CHEMOTHERAP 04/28/2017 ANDRIE, BOBAN N Ot Z79.899 OTHER EMBEDDED CASE MANAGER (CURRENT) DRUG THERAPY 05/30/2017 ANDREI, BOBAN N Ot 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, INTRA 05/30/2017 ANDREI, BOBAN N Ot I10 ESSENTIAL (PRIMARY) HYPERTENSION 05/30/2017 ANDREI, BOBAN N Ot M19.90 UNSPECIFIED OSTEOARTHRITIS, UNSPECIFIED 05/30/2017 ANDREI, BOBAN N Ot Z51.11 ENCOUNTER FOR ANTINEOPLASTIC CHEMOTHERAP 05/30/2017 ANDREI, BOBAN N Ot Z79.899 OTHER EMBEDDED CASE MANAGER (CURRENT) DRUG THERAPY 06/13/2017 REYNA SAUNDERS Ot M25.562 PAIN IN LEFT KNEE 06/13/2017 REYNA SAUNDERS Ot M70.72 OTHER BURSITIS OF HIP, LEFT HIP 06/19/2017 ANDREI, BOBAN N Ot 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, INTRA 06/19/2017 TATYANA FORBES Ot I10 ESSENTIAL (PRIMARY) HYPERTENSION 06/19/2017 TATYANA FORBES Ot M19.90 UNSPECIFIED OSTEOARTHRITIS, UNSPECIFIED 06/19/2017 TATYANA FORBES N Ot Z51.11 ENCOUNTER FOR ANTINEOPLASTIC CHEMOTHERAP 06/19/2017 TATYANA FORBES Ot Z79.899 OTHER DETENTION (CURRENT) DRUG THERAPY 07/23/2017 TATYANA FORBES Ot 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, INTRA 07/23/2017 TATYANA FORBES Ot I10 ESSENTIAL (PRIMARY) HYPERTENSION 07/23/2017 TATYANA FORBES N Ot M19.90 UNSPECIFIED OSTEOARTHRITIS, UNSPECIFIED 07/23/2017 TATYANA FORBES Ot Z51.11 ENCOUNTER FOR ANTINEOPLASTIC CHEMOTHERAP 07/23/2017 TATYANA FORBES N Ot Z79.899 OTHER EMBEDDED CASE MANAGER (CURRENT) DRUG THERAPY 07/31/2017 REYNA SAUNDERS Ot M25.562 PAIN IN LEFT KNEE 07/31/2017 REYNA SAUNDERS Ot M70.72 OTHER BURSITIS OF HIP, LEFT HIP 08/06/2017 IGOR LIPSCOMB MD Ot 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, INTRA 08/06/2017 IGOR LIPSCOMB MD Ot I10 ESSENTIAL (PRIMARY) HYPERTENSION 08/06/2017 IGOR LIPSCOMB MD Ot M19.90 UNSPECIFIED OSTEOARTHRITIS, UNSPECIFIED 08/06/2017 IGOR LIPSCOMB MD Ot Z51.11 ENCOUNTER FOR ANTINEOPLASTIC CHEMOTHERAP 08/06/2017 IGOR LIPSCOMB MD Ot Z79.899 OTHER DETENTION (CURRENT) DRUG THERAPY 08/07/2017 IGOR LIPSCOMB MD Ot 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, INTRA 08/07/2017 IGOR LIPSCOMB MD Ot I10 ESSENTIAL (PRIMARY) HYPERTENSION 08/07/2017 IGOR LIPSCOMB MD Ot M19.90 UNSPECIFIED OSTEOARTHRITIS, UNSPECIFIED 08/07/2017 IGOR LIPSCOMB MD Ot Z51.11 ENCOUNTER FOR ANTINEOPLASTIC CHEMOTHERAP 08/07/2017 IGOR LIPSCOMB MD Ot Z79.899 OTHER DETENTION (CURRENT) DRUG THERAPY 09/17/2017 CHERYL ZHOU DO Ot Z12.31 ENCNTR SCREEN MAMMOGRAM FOR MALIGNANT NE 09/22/2017 IGOR LIPSCOMB MD Ot 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, INTRA 09/22/2017 IGOR LIPSCOMB MD Ot I10 ESSENTIAL (PRIMARY) HYPERTENSION 09/22/2017 IGOR LIPSCOMB MD Ot M19.90 UNSPECIFIED OSTEOARTHRITIS, UNSPECIFIED 09/22/2017 IGOR LIPSCOMB MD Ot Z51.11 ENCOUNTER FOR ANTINEOPLASTIC CHEMOTHERAP 09/22/2017 IGOR LIPSCOMB MD Ot Z79.899 OTHER DETENTION (CURRENT) DRUG THERAPY 09/29/2017 MELI ZHOU DOLINE S Ot Z12.31 ENCNTR SCREEN MAMMOGRAM FOR MALIGNANT NE 10/15/2017 IGOR LIPSCOMB MD Ot 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, INTRA 10/15/2017 IGOR LIPSCOMB MD Ot I10 ESSENTIAL (PRIMARY) HYPERTENSION 10/15/2017 IGOR LIPSCOMB MD Ot M19.90 UNSPECIFIED OSTEOARTHRITIS, UNSPECIFIED 10/15/2017 IGOR LIPSCOMB MD Ot Z51.11 ENCOUNTER FOR ANTINEOPLASTIC CHEMOTHERAP 10/15/2017 IGOR LIPSCOMB MD Ot Z79.899 OTHER DETENTION (CURRENT) DRUG THERAPY 10/15/2017 IGOR LIPSCOMB MD Ot 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, INTRA 10/15/2017 IGOR LIPSCOMB MD Ot I10 ESSENTIAL (PRIMARY) HYPERTENSION 10/15/2017 IGOR LIPSCOMB MD Ot M19.90 UNSPECIFIED OSTEOARTHRITIS, UNSPECIFIED 10/15/2017 IGOR LIPSCOMB MD Ot Z51.11 ENCOUNTER FOR ANTINEOPLASTIC CHEMOTHERAP 10/15/2017 IGOR LIPSCOMB MD Ot Z79.899 OTHER EMBEDDED CASE MANAGER (CURRENT) DRUG THERAPY 10/16/2017 IGOR LIPSCOMB MD Ot 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, INTRA 10/16/2017 IGOR LIPSCOMB MD Ot I10 ESSENTIAL (PRIMARY) HYPERTENSION 10/16/2017 IGOR LIPSCOMB MD Ot M19.90 UNSPECIFIED OSTEOARTHRITIS, UNSPECIFIED 10/16/2017 IGOR LIPSCOMB MD Ot Z51.11 ENCOUNTER FOR ANTINEOPLASTIC CHEMOTHERAP 10/16/2017 IGOR LIPSCOMB MD Ot Z79.899 OTHER EMBEDDED CASE MANAGER (CURRENT) DRUG THERAPY 10/27/2017 MELI ZHOU DOLINE S Ot 793.80 UNSPEC ABNORMAL MAMMOGRAM 10/27/2017 MELI ZHOU DOLINE S Ot M25.561 PAIN IN RIGHT KNEE 10/27/2017 ORENDER DO, CHERYL S Ot M25.562 PAIN IN LEFT KNEE 10/27/2017 ORENDER DO, CHERYL S Ot M25.571 PAIN IN RIGHT ANKLE AND JOINTS OF RIGHT 10/27/2017 ORENDER DO, CHERYL S Ot M25.572 PAIN IN LEFT ANKLE AND JOINTS OF LEFT FO 10/27/2017 RUDINDER , CHERYL S Ot Z12.31 ENCNTR SCREEN MAMMOGRAM FOR MALIGNANT NE 10/27/2017 ELINA DARIUSZ N SERVICE LIAISON REPRESENTATIVE Ot R10.32 LEFT LOWER QUADRANT PAIN 10/27/2017 ELINA DARIUSZ N SERVICE LIAISON REPRESENTATIVE Ot R19.04 LEFT LOWER QUADRANT ABDOMINAL SWELLING, 10/27/2017 TATYANA FORBES Ot C85.90 NON-HODGKIN LYMPHOMA, UNSPECIFIED, UNSPE 10/27/2017 GARRET SEGUNDO BOAT PAINTER Ot 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, INTRA 10/27/2017 GARRET SEGUNDO BOAT PAINTER Ot 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, UNSP, NODES OF ING RE 10/27/2017 GARRET SEGUNDO BOAT PAINTER Ot I10 ESSENTIAL (PRIMARY) HYPERTENSION 10/27/2017 GARRET SEGUNDOP Ot M16.0 BILATERAL PRIMARY OSTEOARTHRITIS OF HIP 10/27/2017 GARRET SEGUNDO BOAT PAINTER Ot M17.0 BILATERAL PRIMARY OSTEOARTHRITIS OF KNEE 10/27/2017 TATYANA FORBES Ot 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, INTRA 10/27/2017 TATYANA FORBES Ot 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, INTRA 10/27/2017 TATYANA FORBES Ot Z51.81 ENCOUNTER FOR THERAPEUTIC DRUG LEVEL MON 10/27/2017 TATYANA FORBES Ot Z79.899 OTHER EMBEDDED CASE MANAGER (CURRENT) DRUG THERAPY 10/27/2017 GARRET SEGUNDO BOAT PAINTER Ot R05 COUGH 10/27/2017 GARRET SEGUNDO BOAT PAINTER Ot 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, UNSP, NODES OF ING RE 10/27/2017 GARRET SEGUNDO BOAT PAINTER Ot I10 ESSENTIAL (PRIMARY) HYPERTENSION 10/27/2017 GARRET SEGUNDO BOAT PAINTER Ot Z79.899 OTHER DETENTION (CURRENT) DRUG THERAPY 10/27/2017 RAMÓN MCCLURE SERVICE LIAISON REPRESENTATIVE Ot R09.82 POSTNASAL DRIP 10/27/2017 RUEL CASIANO, IGOR Ot 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, INTRA 10/27/2017 RUEL CASIANO, IGOR Ot I10 ESSENTIAL (PRIMARY) HYPERTENSION 10/27/2017 RUEL CASIANO, IGOR Ot M19.90 UNSPECIFIED OSTEOARTHRITIS, UNSPECIFIED 10/27/2017 IGOR LIPSCOMB MD Ot Z51.11 ENCOUNTER FOR ANTINEOPLASTIC CHEMOTHERAP 10/27/2017 IGOR LIPSCOMB MD Ot Z79.899 OTHER EMBEDDED CASE MANAGER (CURRENT) DRUG THERAPY 10/27/2017 ORENDER DOMELICHERYL S Ot Z12.31 ENCNTR SCREEN MAMMOGRAM FOR MALIGNANT NE 11/03/2017 JANAY RICHARDSON MD Ot F32.9 MAJOR DEPRESSIVE DISORDER, SINGLE EPISOD 11/03/2017 JANAY RICHARDSON MD, Ot F41.9 ANXIETY DISORDER, UNSPECIFIED 11/03/2017 JANAY RICHARDSON MD Ot I10 ESSENTIAL (PRIMARY) HYPERTENSION 11/03/2017 JANAY RICHARDSON MD Ot K57.30 DVRTCLOS OF LG INT W/O PERFORATION OR AB 11/03/2017 JANAY RICHARDSON MD Ot Z12.11 ENCOUNTER FOR SCREENING FOR MALIGNANT NE 11/03/2017 JANAY RICHARDSON MD Ot Z79.899 OTHER DETENTION (CURRENT) DRUG THERAPY 11/04/2017 JANAY RICHARDSON MD Ot F32.9 MAJOR DEPRESSIVE DISORDER, SINGLE EPISOD 11/04/2017 JANAY RICHARDSON MD Ot F41.9 ANXIETY DISORDER, UNSPECIFIED 11/04/2017 JANAY RICHARDSON MD Ot I10 ESSENTIAL (PRIMARY) HYPERTENSION 11/04/2017 JANAY RICHARDSON MD Ot K57.30 DVRTCLOS OF LG INT W/O PERFORATION OR AB 11/04/2017 JANAY RICHARDSON MD Ot Z12.11 ENCOUNTER FOR SCREENING FOR MALIGNANT NE 11/04/2017 JANAY RICHARDSON MD Ot Z79.899 OTHER EMBEDDED CASE MANAGER (CURRENT) DRUG THERAPY 11/04/2017 JANAY RICHARDSON MD Ot F32.9 MAJOR DEPRESSIVE DISORDER, SINGLE EPISOD 11/04/2017 JANAY RICHARDSON MD Ot F41.9 ANXIETY DISORDER, UNSPECIFIED 11/04/2017 JANAY RICHARDSON MD Ot I10 ESSENTIAL (PRIMARY) HYPERTENSION 11/04/2017 JANAY RICHARDSON MD Ot K57.30 DVRTCLOS OF LG INT W/O PERFORATION OR AB 11/04/2017 JANAY RICHARDSON MD Ot Z12.11 ENCOUNTER FOR SCREENING FOR MALIGNANT NE 11/04/2017 JANAY RICHARDSON MD Ot Z79.899 OTHER EMBEDDED CASE MANAGER (CURRENT) DRUG THERAPY 11/09/2017 JANAY RICHARDSON MD Ot F32.9 MAJOR DEPRESSIVE DISORDER, SINGLE EPISOD 11/09/2017 JANAY RICHARDSON MD, Ot F41.9 ANXIETY DISORDER, UNSPECIFIED 11/09/2017 JANAY RICHARDSON MD Ot I10 ESSENTIAL (PRIMARY) HYPERTENSION 11/09/2017 JANAY RICHARDSON MD Ot K57.30 DVRTCLOS OF LG INT W/O PERFORATION OR AB 11/09/2017 JANAY RICHARDSON MD Ot Z12.11 ENCOUNTER FOR SCREENING FOR MALIGNANT NE 11/09/2017 JANAY RICHARDSON MD Ot Z79.899 OTHER EMBEDDED CASE MANAGER (CURRENT) DRUG THERAPY 11/12/2017 IGOR LIPSCOMB MD Ot 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, INTRA 11/12/2017 IGOR LIPSCOMB MD Ot I10 ESSENTIAL (PRIMARY) HYPERTENSION 11/12/2017 IGOR LIPSCOMB MD Ot M19.90 UNSPECIFIED OSTEOARTHRITIS, UNSPECIFIED 11/12/2017 IGOR LIPSCOMB MD Ot Z51.11 ENCOUNTER FOR ANTINEOPLASTIC CHEMOTHERAP 11/12/2017 IGOR LIPSCOMB MD Ot Z79.899 OTHER DETENTION (CURRENT) DRUG THERAPY 11/13/2017 IGOR LIPSCOMB MD Ot 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, INTRA 11/13/2017 IGOR LIPSCOMB MD Ot I10 ESSENTIAL (PRIMARY) HYPERTENSION 11/13/2017 IGOR LIPSCOMB MD Ot M19.90 UNSPECIFIED OSTEOARTHRITIS, UNSPECIFIED 11/13/2017 IGOR LIPSCOMB MD Ot Z51.11 ENCOUNTER FOR ANTINEOPLASTIC CHEMOTHERAP 11/13/2017 IGOR LIPSCOMB MD Ot Z79.899 OTHER DETENTION (CURRENT) DRUG THERAPY 12/22/2017 IGOR LIPSCOMB MD Ot 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, INTRA 12/22/2017 IGOR LIPSCOMB MD Ot I10 ESSENTIAL (PRIMARY) HYPERTENSION 12/22/2017 IGOR LIPSCOMB MD Ot M19.90 UNSPECIFIED OSTEOARTHRITIS, UNSPECIFIED 12/22/2017 IGOR LIPSCOMB MD Ot Z51.11 ENCOUNTER FOR ANTINEOPLASTIC CHEMOTHERAP 12/22/2017 IGOR LIPSCOMB MD Ot Z79.899 OTHER DETENTION (CURRENT) DRUG THERAPY 12/24/2017 IGOR LIPSCOMB MD Ot 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, INTRA 12/24/2017 IGOR LIPSCOMB MD Ot I10 ESSENTIAL (PRIMARY) HYPERTENSION 12/24/2017 IGOR LIPSCOMB MD Ot M19.90 UNSPECIFIED OSTEOARTHRITIS, UNSPECIFIED 12/24/2017 IGOR LIPSCOMB MD Ot Z45.2 ENCOUNTER FOR ADJUSTMENT AND MANAGEMENT 12/24/2017 IGOR LIPSCOMB MD Ot Z51.11 ENCOUNTER FOR ANTINEOPLASTIC CHEMOTHERAP 12/24/2017 IGOR LIPSCOMB MD Ot Z79.899 OTHER DETENTION (CURRENT) DRUG THERAPY 03/25/2018 KEITH WALKER Ot M25.561 PAIN IN RIGHT KNEE 03/25/2018 KEITH WALKER Ot M54.40 LUMBAGO WITH SCIATICA, UNSPECIFIED SIDE 03/25/2018 KEITH WALKER Ot M70.71 OTHER BURSITIS OF HIP, RIGHT HIP 03/30/2018 TATYANA FORBES Ot 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, INTRA 03/30/2018 TATYANA FORBES Ot R91.8 OTHER NONSPECIFIC ABNORMAL FINDING OF [place] 03/30/2018 TATYANA FORBES Ot Z01.89 ENCOUNTER FOR OTHER SPECIFIED SPECIAL EX 04/03/2018 KEITH WALKER Ot M25.561 PAIN IN RIGHT KNEE 04/03/2018 KEITH WALKER Ot M54.40 LUMBAGO WITH SCIATICA, UNSPECIFIED SIDE 04/03/2018 KEITH WALKER Ot M70.71 OTHER BURSITIS OF HIP, RIGHT HIP 04/03/2018 KEITH WALKER Ot M25.561 PAIN IN RIGHT KNEE 04/03/2018 KEITH WALKER Ot M54.40 LUMBAGO WITH SCIATICA, UNSPECIFIED SIDE 04/03/2018 KEITH WALKER Ot M70.71 OTHER BURSITIS OF HIP, RIGHT HIP 04/12/2018 ANDREI, BOBAN N Ot 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, INTRA 04/12/2018 ANDREI, BOBAN N Ot I10 ESSENTIAL (PRIMARY) HYPERTENSION 04/12/2018 ANDREI, BOBAN N Ot M19.90 UNSPECIFIED OSTEOARTHRITIS, UNSPECIFIED 04/12/2018 ANDREI, BOBAN N Ot Z45.2 ENCOUNTER FOR ADJUSTMENT AND MANAGEMENT 04/12/2018 ANDREI, BOBAN N Ot Z79.899 OTHER DETENTION (CURRENT) DRUG THERAPY 04/14/2018 ANDREI, BOBAN N Ot 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, INTRA 04/14/2018 ANDREI, BOBAN N Ot I10 ESSENTIAL (PRIMARY) HYPERTENSION 04/14/2018 ANDREI, BOBAN N Ot M19.90 UNSPECIFIED OSTEOARTHRITIS, UNSPECIFIED 04/14/2018 ANDREI, BOBAN N Ot Z45.2 ENCOUNTER FOR ADJUSTMENT AND MANAGEMENT 04/14/2018 ANDREI, BOBAN N Ot Z79.899 OTHER EMBEDDED CASE MANAGER (CURRENT) DRUG THERAPY 04/17/2018 ANDREI, BOBAN N Ot 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, INTRA 04/17/2018 ANDREI, BOBAN N Ot I10 ESSENTIAL (PRIMARY) HYPERTENSION 04/17/2018 ANDREI, BOBAN N Ot M19.90 UNSPECIFIED OSTEOARTHRITIS, UNSPECIFIED 04/17/2018 ANDREI, BOBAN N Ot Z45.2 ENCOUNTER FOR ADJUSTMENT AND MANAGEMENT 04/17/2018 ANDREI, BOBAN N Ot Z79.899 OTHER EMBEDDED CASE MANAGER (CURRENT) DRUG THERAPY 04/19/2018 ANDREI, BOBAN N Ot 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 Results There is no data. Encounters ACCT No. Visit Date/Time Discharge Status Pt. Type Provider Facility Loc./Unit Complaint [id number] 04/21/2014 08:09:00 04/21/2014 23:59:59 CLS Outpatient ANGEL ARANGO DO 07/201704/07/2018 10:33:33 04/07/2018 23:59:59 CLS Outpatient Cheryl Zhou [id number] 04/13/2018 01:05:00 04/13/2018 23:59:59 CLS Preadmit ANDREI TATYANA Earl [facility] ONC [id number] 03/19/2018 13:02:00 04/12/2018 00:01:00 DIS Outpatient ANDREI TATYANA Earl [facility] ONC [id number] 04/09/2018 11:13:00 04/10/2018 15:55:00 DIS Outpatient KEITH WALKER [facility] REHAB BACK AND HIP PAIN [id number] 03/18/2018 13:44:00 03/18/2018 23:59:59 CLS Outpatient ANDREI TATYANA Earl [facility] RAD ENCOUNTER FOR IMAGING STUDY TO RESTAGE NEOPLASM [id number] 01/27/2018 09:04:00 01/27/2018 23:59:59 CLS Outpatient IGOR LIPSCOMB MD [facility] ONC [id number] 10/15/2017 07:55:00 11/12/2017 00:01:00 DIS Outpatient IGOR LIPSCOMB MD [facility] ONC [id number] 11/03/2017 06:36:00 11/03/2017 10:23:00 DIS Outpatient JANAY RICHARDSON MD [facility] ENDO SCREENING [id number] 10/28/2017 08:30:00 10/28/2017 08:37:00 DIS Outpatient JANAY RICHARDSON MD [facility] PREOP COLONOSCOPY [id number] 09/16/2017 08:31:00 09/16/2017 23:59:59 CLS Outpatient CHERYL ZHOU DO [facility] RAD B/L SCREENING-3D [id number] 07/31/2017 08:00:00 07/31/2017 08:54:00 DIS Outpatient REYNA SAUNDERS [facility] REHAB L HIP SCIATICA; BURSITIS; L KNEE PAIN [id number] 07/17/2017 09:28:00 07/23/2017 00:01:00 DIS Outpatient TATYANA FORBES N [facility] ONC [id number] 03/25/2017 11:49:00 04/12/2017 00:01:00 DIS Outpatient ANDREI TATYANA Earl [facility] ONC [id number] 02/27/2017 08:36:00 03/02/2017 00:01:00 DIS Outpatient ANDREITATYANA RECINOS N [facility] ONC [id number] 11/07/2016 08:18:00 11/13/2016 00:01:00 DIS Outpatient TATYANA FORBES [facility] ONC [id number] 07/18/2016 09:36:00 07/24/2016 00:01:00 DIS Outpatient ANDREITATYANA RECINOS [facility] ONC [id number] 03/27/2016 09:33:00 04/22/2016 13:43:00 DIS Outpatient ANDREILUCIANO RECINOSЕЛЕНА Rajat [facility] ONC [id number] 03/25/2016 09:16:00 03/25/2016 23:59:59 CLS Outpatient RAMÓN MCCLURE APRN [facility] RAD R09.82,CHRONIC NOSE DRAINAGE [id number] 02/22/2016 09:33:00 02/22/2016 23:59:59 CLS Outpatient GARRET SEGUNDO [facility] ONC [id number] 02/15/2016 09:32:00 02/21/2016 00:01:00 DIS Outpatient ANDREI TATYANA Rajat [facility] ONC [id number] 02/08/2016 15:31:00 02/08/2016 23:59:59 CLS Outpatient GARRET SEGUNDO [facility] RAD [id number] 01/25/2016 07:13:00 01/25/2016 23:59:59 CLS Outpatient TATYANA FORBES [facility] RAD NON HODKIN LUMPHOMA OF INTRAPELVIC LYMPH NODES [id number] 01/23/2016 07:07:00 01/23/2016 23:59:59 CLS Outpatient ANDREITATYANA Rajat [facility] CARD NON HODKIN LYMPHOMA OF INTRAPELVIC LYMPH NODES [id number] 12/18/2015 13:13:00 12/18/2015 23:59:59 CLS Outpatient GARRET SEGUNDO BOAT PAINTER [facility] ONC [id number] 12/01/2015 15:57:00 12/03/2015 14:16:00 DIS Inpatient ANDREI TATYANA Earl [facility] 4TH LOW SODIUM [id number] 11/30/2015 08:39:00 11/30/2015 23:59:59 CLS Outpatient GARRET SEGUNDO BOAT PAINTER [facility] ONC [id number] 11/24/2015 07:42:00 11/24/2015 23:59:59 CLS Outpatient ANDREI TATYANA Earl [facility] RAD LYMPHOMA [id number] 11/21/2015 10:28:00 11/21/2015 16:25:00 DIS Outpatient JANAY RICHARDSON MD [facility] BCELL LYMPHOMA [id number] 11/14/2015 06:54:00 11/14/2015 11:32:00 DIS Outpatient JANAY RICHARDSON MD [facility] LEFT INGUINAL MASS [id number] 10/23/2015 09:57:00 10/23/2015 23:59:59 CLS Outpatient DARIUSZ ANTOINE APRN [facility] RAD L GROIN PAIN [id number] 08/22/2015 08:32:00 08/22/2015 23:59:59 CLS Outpatient CHERYL ZHOU DO [facility] RAD SCREENING, KNEE PAIN, FOOT PAIN [id number] 08/02/2014 09:20:00 08/02/2014 23:59:59 CLS Outpatient CHERYL ZHOU DO [facility] RAD HX OF BREAST CA, BREAST ASSYMETRICAL [id number] 05/24/2014 10:32:00 05/31/2014 13:48:00 DIS Outpatient REYNA SAUNDERS [facility] REHAB L SCAR FX [id number] 03/19/2014 22:34:00 03/19/2014 23:29:00 DIS Emergency [id number] 04/06/2013 09:35:00 04/06/2013 23:59:59 CLS Outpatient [id number] 05/05/2018 12:00:00 PEN Preadmit DYLAN CASIANO, JANAY Christiansen [facility] SDC NON-HODGKINS LYMPHOMA INTRAPELVIC LYMPH NODES [id number] 04/19/2018 18:48:00 ACT Emergency VAIBHAV CASIANO, XIOMARA Rees [facility] ER FALL, HEAD/TAILBONE PAIN [id number] 12/01/2015 15:33:00 Document Registration
--- NOTE | 2018-04-19 19:55 | Diagnostic Imaging Report ---
INDICATION: Low back pain after fall out of chair. COMPARISON: None available. TECHNIQUE: Three views of the sacrum and coccyx were obtained. FINDINGS AND IMPRESSION: 1. On the lateral view, there is potential nondisplaced buckle type fracture in the S3 vertebral body. If it will alter patient management, CT of the pelvis could be performed for confirmation or exclusion. 2. No displaced fracture of the coccyx. 3. SI joints are normal in alignment. Dictated by: Dictated on workstation # [id number]
--- NOTE | 2018-04-19 20:32 | ED Fall/Injury ---
General Chief Complaint: Trauma-Non Activation Stated Complaint: FALL, HEAD/TAILBONE PAIN Nursing Triage Note: Pt arrives to ED ROOM #6 with c/o of injury after fall from chair. Pt states that she fell backwards from her chair when it became caught on the carpet. Pt states that she hit her posterior right head on the wall. Pt denies LOC. Pt states that she has a WEBBER 3/10 since she fell. Pt states that she hit her right posterior shoulder on the wall and arm of the chair. Pt states that she hit her right upper chest port site with her knees when she landed backwards on the floor. Pt states that her port site is tender to the touch. Source: patient Exam Limitations: no limitations History of Present Illness Date Seen by Provider: Apr 19, 2018 Time Seen by Provider: 19:13 Initial Comments This 57-year-old woman presents to the emergency room with injuries related to a fall from her office chair. She was rolling backward in the chair, causing her to tip over backward striking the wall behind her. Her back hit the arm of the chair, her right scalp struck the wall, and her tailbone hit hard on the impact. She denies any pain in the chest or difficulty breathing. There is no loss of consciousness. She denies any signs or symptoms of concussion. She has not taken anything for pain. She has chronic right hip bursitis which was aggravated by the fall. Location Injury Occurred: at home Allergies and Home Medications Allergies Coded Allergies: Penicillins (Verified Allergy, Mild, RASH, 10/28/17) Home Medications Bisoprolol Fumarate/Hctz 1 Each Tablet, 1 TAB PO DAILY, (Reported) Duloxetine HCl 30 Mg Capsule.dr, 30 MG PO DAILY, (Reported) Estradiol 1 Mg Tablet, 1 MG PO DAILY, (Reported) Naproxen 500 Mg Tablet, 500 MG PO BID, (Reported) Spironolactone 25 Mg Tablet, 25 MG PO DAILY, (Reported) Patient Home Medication List Home Medication List Reviewed: Yes Review of Systems Review of Systems Constitutional: no symptoms reported Eyes: No Symptoms Reported Ears, Nose, Mouth, Throat: no symptoms reported Respiratory: no symptoms reported Cardiovascular: no symptoms reported Gastrointestinal: no symptoms reported Genitourinary: no symptoms reported : No Musculoskeletal: see HPI Skin: no symptoms reported Psychiatric/Neurological: No Symptoms Reported Past Izlnldo-Pctjqg-Wealkk Hx Past Med/Social Hx: Reviewed and Corrections made Patient Social History Alcohol Use: Denies Use Recreational Drug Use: No Smoking Status: Never a Smoker 2nd Hand Smoke Exposure: No Recent Foreign Travel: No Contact w/Someone Who Travel: No Recent Infectious Disease Expo: No Recent Hopitalizations: No Physical Abuse: No Sexual Abuse: No Mistreated: No Fear: No Immunizations Up To Date Date of Pneumonia Vaccine: Apr 28, 2017 Date of Influenza Vaccine: Apr 28, 2017 Seasonal Allergies Seasonal Allergies: Yes Past Medical History Surgeries: Yes (Port, lymph node biopsy) Gallbladder, Hysterectomy Respiratory: No Cardiac: Yes Hypertension Neurological: No Reproductive Disorders: No 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 Sexually Transmitted Disease: No HIV/AIDS: No Gastrointestinal: No Musculoskeletal: Yes (Sciatica, hip bursitis) Arthritis, Chronic Back Pain, Fractures (Elbow) Endocrine: No Loss of Vision: Bilateral Hearing Impairment: Denies Cancer: Yes Lymphoma (Follicular lymphoma) Did You Recieve Any Treatments: Yes What Type of Treatment Did You: Chemotherapy Psychosocial: Yes (FROM LYMPHOMA) Anxiety, Depression Integumentary: No Blood Disorders: No Adverse Reaction/Blood Tranf: No (N/A) Family Medical History FH: prostate cancer 19 FATHER ( AT AGE 79) Physical Exam Vital Signs Vital Signs - First Documented Capillary Refill : Less Than 3 Seconds Height, Weight, BMI Height: 5'6.00" Weight: 170lbs. 0.0oz. 77.078108bd; 24.1 BMI Method:Stated General Appearance: WD/WN, no apparent distress HEENT: PERRL/EOMI, normal ENT inspection, TMs normal, other (Minimal tenderness on the right parietal scalp.) Neck: non-tender, full range of motion, normal inspection Cardiovascular: regular rate, rhythm, no edema, no murmur Respiratory: lungs clear, normal breath sounds, no respiratory distress, no accessory muscle use Gastrointestinal: non tender, soft Back: other (Mild to moderate tenderness over the coccyx) Extremities: normal inspection, no pedal edema, other (Minimal tenderness over the right hip. 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, no motor/sensory deficits, alert, normal mood/affect, oriented x 3 Skin: normal color, warm/dry [place] Coma Score Best Eye Response: (4) Open Spontaneously Best Verbal Response: (5) Oriented Best Motor Response: (6) Obeys Commands [place] Total: 15 Progress/Results/Core Measures Results/Orders My Orders Orders - XIOMARA ESPOSITO MD Sacrum And Coccyx (04/19/18 19:26) Vital Signs/I&O 04/19/18 04/19/18 04/19/18 19:06 19:06 20:55 Temp 99.2 99.2 97.8 Pulse 78 78 80 Resp 24 24 18 B/P (MAP) 168/83 (111) 168/83 (111) 132/78 (96) Pulse Ox 100 100 100 O2 Delivery Room Air Room Air Blood Pressure Mean: 111 Progress Progress Note : Progress Note Based on symptoms, mechanism of injury, and exam, CT imaging of the head and neck was not felt appropriate. Patient is agreeable to that decision. However , she is somewhat concerned about her coccyx. Coccyx and sacrum were imaged. There is a questionable buckle fracture in the sacrum that on reexamination the area of concern did not correlate well with area of pain or tenderness. Patient was offered CT imaging has suggested by the CT report. Neither she nor I felt that was necessary. Diagnostic Imaging Diagonstic Imaging: Xray Plain Films/CT/US/NM/MRI: other (coccyx and sacrum) Comments X-ray viewed by me and report reviewed. See report below: NAME: ED [facility]WE[facility] REC#: [id number] PT STATUS: REG ER : 1960 PHYSICIAN: XIOMARA ESPOSITO MD ADMIT DATE: 04/19/18/ER Signed Date of Exam: 04/19/18 SACRUM AND COCCYX INDICATION: Low back pain after fall out of chair. COMPARISON: None available. TECHNIQUE: Three views of the sacrum and coccyx were obtained. FINDINGS AND IMPRESSION: 1. On the lateral view, there is potential nondisplaced buckle type fracture in the S3 vertebral body. If it will alter patient management, CT of the pelvis could be performed for confirmation or exclusion. 2. No displaced fracture of the coccyx. 3. SI joints are normal in alignment. Dictated by: Dictated on workstation # [id number] Dict: 04/19/181951 Trans: 04/19/181954 Interpreted by: CARMELO AYALA MD Electronically signed by: CARMELO AYALA MD 04/19/181954 Departure Impression Primary Impression: Fall from chair Qualified Codes: W07.XXXA - Fall from chair, initial encounter Additional Impressions: Sacral contusion Qualified Codes: S30.0XXA - Contusion of lower back and pelvis, initial encounter Minor head injury Qualified Codes: S09.90XA - Unspecified injury of head, initial encounter Disposition: 01 HOME, SELF-CARE Condition: Stable Departure-Patient Inst. Decision time for Depature: 20:46 Referrals: JUANITA ASNDERS DO (PCP/Family) Primary Care Physician Patient Instructions: Contusion (DC) Add. Discharge Instructions: Ice areas of focused pain in 20 minute intervals for the next 24-48 hours as needed. In general, you may use a warm bath or warm shower to help relax your muscles. For pain continue using naproxen up to 500 mg twice daily. Add Tylenol ( acetaminophen) up to 1000 mg every 6 hours as needed for additional pain relief. You may sit on a donut pillow or innertube for comfort. Return to care if you have worsening symptoms such as increasing pain or neurologic changes such as confusion, changes in vision, numbness or tingling of the extremities, nausea and vomiting, etc. Follow-up with your primary care provider if not improving as expected. All discharge instructions reviewed with patient and/or family. Voiced understanding. XIOMARA ESPOSITO MD Apr 19, 2018 20:32
[2018-04-19 20:55] VITALS: BP 132/78
== END 2018-04-19 20:55 | disposition home or self-care (01) ==
LOC: EDUNIT# 18:46 → ER 18:48
DX: S09.90XA Unspecified injury of head, initial encounter (principal); S30.0XXA Contusion of lower back and pelvis, initial encounter; I10 Essential (primary) hypertension; F41.9 Anxiety disorder, unspecified; R40.2142 Coma scale, eyes open, spontaneous, at arrival to emergency department; R40.2252 Coma scale, best verbal response, oriented, at arrival to emergency department; R40.2362 Coma scale, best motor response, obeys commands, at arrival to emergency department; F32.9 Major depressive disorder, single episode, unspecified; Z92.21 Personal history of antineoplastic chemotherapy; Z85.72 Personal history of non-Hodgkin lymphomas; Z88.0 Allergy status to penicillin; Z90.710 Acquired absence of both cervix and uterus; W22.01XA Walked into wall, initial encounter; W07.XXXA Fall from chair, initial encounter
CPT/HCPCS: 72220

== ENCOUNTER 2018-04-28 05:35 | Outpatient (CLI) | payer OTHER ==
[~2018-04-28] VITALS: Ht 167.6 cm; Wt 77.1 kg
== END 2018-04-28 13:20 | disposition home or self-care (01) ==
LOC: PREOP 05:35
PROVIDERS: ATTEND Surgery
DX: Z01.818 Encounter for other preprocedural examination (principal)

== ENCOUNTER 2018-05-05 09:26 | Day surgery (SDC) | payer OTHER ==
[~2018-05-05] VITALS: Ht 167.6 cm; Wt 77.1 kg
--- OUTSIDE RECORDS SUMMARY | 2018-05-05 09:32 | XMS REPORT | Continuity of Care Document ---
Author Author [facility] Address Unknown Phone Unavailable Allergies Active Description Code Type Severity Reaction Onset Reported/Identified Relationship to Patient Clinical Status Yes Penicillins [id number] Drug Allergy Unknown N/A 12/01/2015 Yes Penicillins [id number] Drug Allergy Mild RASH 04/28/2018 Medications There is no data. Problems Date [...] ZHOU DOQUELINE S Ot M25.562 08/23/2015 MANJEET ZHUO DOQUELINE S Ot M25.571 08/23/2015 RUDINDMANJEET CHENEY [...] CHERYL S Ot M25.572 10/24/2015 DARIUSZ ANTOINE 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 Ot R10.32 10/24/2015 DARIUSZ ANTOINE 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 Ot R19.04 11/07/2015 DARIUSZ ANTOINE 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 Ot R10.32 LEFT LOWER QUADRANT PAIN 11/07/2015 DARIUSZ ANTOINE 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 Ot R19.04 LEFT LOWER QUADRANT ABDOMINAL SWELLING, [...] JOINTS OF LEFT FO 11/22/2015 DARIUSZ ANTOINE 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 Ot R10.32 LEFT LOWER QUADRANT PAIN 11/22/2015 [...] 11/30/2015 ANDREITATYANA RECINOS N Ot Z79.899 OTHER DIRECTOR HEALTH (CURRENT) DRUG THERAPY 12/01/2015 GARRET SEGUNDO CLOUD SECURITY ARCHITECT Ot 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, INTRA 12/01/2015 ANDREITATYANA RECINOS N Ot C85.90 NON-HODGKIN LYMPHOMA, UNSPECIFIED, UNSPE 12/01/2015 ANDREITATYANA RECINOS N Ot I10 ESSENTIAL (PRIMARY) HYPERTENSION 12/01/2015 ANDREITATYANA RECINOS N Ot M19.90 UNSPECIFIED OSTEOARTHRITIS, UNSPECIFIED 12/01/2015 ANDREI, BOBЕЛЕНА N Ot Z79.899 OTHER DIRECTOR HEALTH (CURRENT) DRUG THERAPY 12/01/2015 GARRET SEGUNDO CLOUD SECURITY ARCHITECT Ot 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, [...] UNSPECIFIED 12/04/2015 ANDREILUCIANOAN N Ot Z79.899 OTHER DIRECTOR HEALTH (CURRENT) DRUG THERAPY 12/04/2015 ANDREITATYANA N Ot C85.90 NON-HODGKIN LYMPHOMA, UNSPECIFIED, UNSPE 12/04/2015 ANDREI, BOBAN N Ot I10 ESSENTIAL (PRIMARY) HYPERTENSION 12/04/2015 ANDREI, BOBAN N Ot M19.90 UNSPECIFIED OSTEOARTHRITIS, UNSPECIFIED 12/04/2015 ANDREI, BOBAN N Ot Z79.899 OTHER DIRECTOR HEALTH (CURRENT) DRUG THERAPY 12/06/2015 ANDREI BOBЕЛЕНА N Ot C85.90 NON-HODGKIN LYMPHOMA, UNSPECIFIED, UNSPE 12/06/2015 ANDREI BOBAN N Ot I10 ESSENTIAL (PRIMARY) HYPERTENSION 12/06/2015 ANDREI BOBЕЛЕНА N Ot M19.90 UNSPECIFIED OSTEOARTHRITIS, UNSPECIFIED 12/06/2015 ANDREI, BOBAN N Ot Z79.899 OTHER MCFP (CURRENT) DRUG THERAPY 12/12/2015 ANDREI, BOBAN N Ot C85.90 NON-HODGKIN LYMPHOMA, UNSPECIFIED, UNSPE 12/12/2015 ANDREI BOBAN N Ot I10 ESSENTIAL (PRIMARY) HYPERTENSION 12/12/2015 ANDREI, BOBAN N Ot M19.90 UNSPECIFIED OSTEOARTHRITIS, UNSPECIFIED 12/12/2015 ANDREI, BOBAN N Ot Z79.899 OTHER DIRECTOR HEALTH (CURRENT) DRUG THERAPY 12/12/2015 ANDREI, BOBAN N [...] ANKLE AND JOINTS OF LEFT FO 12/14/2015 RUIDNDER DO, CHERYL S Ot Z12.31 ENCNTR SCREEN MAMMOGRAM FOR MALIGNANT NE 12/19/2015 TATYANA FORBES Ot C85.90 NON-HODGKIN LYMPHOMA, UNSPECIFIED, UNSPE 12/19/2015 TATYANA FORBES N Ot I10 ESSENTIAL (PRIMARY) HYPERTENSION 12/19/2015 ANDREITATYANA N Ot M19.90 UNSPECIFIED OSTEOARTHRITIS, UNSPECIFIED 12/19/2015 ANDREI TATYANA N Ot Z79.899 OTHER DIRECTOR HEALTH (CURRENT) DRUG THERAPY 12/21/2015 TATYANA FORBES N Ot C85.90 NON-HODGKIN LYMPHOMA, UNSPECIFIED, UNSPE 12/21/2015 ANDREI BOBAN N Ot I10 ESSENTIAL (PRIMARY) HYPERTENSION 12/21/2015 ANDREITATYANA N Ot M19.90 UNSPECIFIED OSTEOARTHRITIS, UNSPECIFIED 12/21/2015 ANDREITATYANA N Ot Z79.899 OTHER MCFP (CURRENT) DRUG THERAPY 01/01/2016 GARRET SEGUNDO CLOUD SECURITY ARCHITECT Ot 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, UNSP, NODES OF ING RE 01/01/2016 GARRET SEGUNDO CLOUD SECURITY ARCHITECT Ot I10 ESSENTIAL (PRIMARY) HYPERTENSION 01/01/2016 GARRET SEGUNDO CLOUD SECURITY ARCHITECT Ot M16.0 BILATERAL PRIMARY OSTEOARTHRITIS OF HIP 01/01/2016 GARRET SEGUNDO CLOUD SECURITY ARCHITECT Ot M17.0 BILATERAL PRIMARY OSTEOARTHRITIS OF KNEE 01/04/2016 TATYANA FORBES N Ot C85.90 NON-HODGKIN LYMPHOMA, UNSPECIFIED, UNSPE 01/04/2016 ANDREI, BOBAN N Ot I10 ESSENTIAL (PRIMARY) HYPERTENSION 01/04/2016 ANDREILUCIANOAN N Ot M19.90 UNSPECIFIED OSTEOARTHRITIS, UNSPECIFIED 01/04/2016 ANDREI BOBAN N Ot Z79.899 OTHER DIRECTOR HEALTH (CURRENT) DRUG THERAPY 01/24/2016 ANDREI BOBAN N Ot 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, INTRA 01/24/2016 ANDREILUCIANOAN N Ot Z51.81 ENCOUNTER FOR THERAPEUTIC DRUG LEVEL MON 01/24/2016 ANDREILUCIANOAN N Ot Z79.899 OTHER MCFP (CURRENT) DRUG THERAPY 01/30/2016 ANDREI BOBAN N Ot 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, INTRA 02/02/2016 ANDREI, BOBAN N Ot 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, INTRA 02/02/2016 ANDREI, BOBAN N Ot Z51.81 ENCOUNTER FOR THERAPEUTIC DRUG LEVEL MON 02/02/2016 ANDREI BOBAN N Ot Z79.899 OTHER DIRECTOR HEALTH (CURRENT) DRUG THERAPY 02/07/2016 ANDREI BOBAN N Ot C85.90 NON-HODGKIN LYMPHOMA, UNSPECIFIED, UNSPE 02/07/2016 ANDREI BOBAN N Ot I10 ESSENTIAL (PRIMARY) HYPERTENSION 02/07/2016 ANDREI BOBAN N Ot M19.90 UNSPECIFIED OSTEOARTHRITIS, UNSPECIFIED 02/07/2016 ANDREI BOBAN N Ot Z79.899 OTHER MCFP (CURRENT) DRUG THERAPY 02/09/2016 GARRET SEGUNDO CLOUD SECURITY ARCHITECT Ot R05 COUGH 02/09/2016 ANDREI BOBAN N Ot 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, INTRA 02/12/2016 GARRET SEGUNDO CLOUD SECURITY ARCHITECT Ot R05 COUGH 02/13/2016 GARRET SEGUNDO CLOUD SECURITY ARCHITECT Ot R05 COUGH 02/14/2016 GARRET SEGUNDO CLOUD SECURITY ARCHITECT Ot R05 COUGH 02/21/2016 ANDREI, BOBAN N Ot C85.90 NON-HODGKIN LYMPHOMA, UNSPECIFIED, UNSPE 02/21/2016 ANDREI BOBAN N Ot I10 ESSENTIAL (PRIMARY) HYPERTENSION 02/21/2016 ANDREI, BOBAN N Ot M19.90 UNSPECIFIED OSTEOARTHRITIS, UNSPECIFIED 02/21/2016 ANDREI, BOBAN N Ot Z51.11 ENCOUNTER FOR ANTINEOPLASTIC CHEMOTHERAP 02/21/2016 ANDREI BOBAN N Ot Z79.899 OTHER DIRECTOR HEALTH (CURRENT) DRUG THERAPY 02/22/2016 GARRET SEGUNDO CLOUD SECURITY ARCHITECT Ot R05 COUGH 02/23/2016 ANDREI, BOBAN N Ot C85.90 NON-HODGKIN LYMPHOMA, UNSPECIFIED, UNSPE 02/23/2016 ANDREI, BOBAN N Ot I10 ESSENTIAL (PRIMARY) HYPERTENSION 02/23/2016 ANDREI, BOBAN N Ot M19.90 UNSPECIFIED OSTEOARTHRITIS, UNSPECIFIED 02/23/2016 ANDREI, BOBAN N Ot Z79.899 OTHER MCFP (CURRENT) DRUG THERAPY 03/05/2016 GARRET SEGUNDO CLOUD SECURITY ARCHITECT Ot 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, UNSP, NODES OF ING RE 03/05/2016 GARRET SEGUNDO CLOUD SECURITY ARCHITECT Ot I10 ESSENTIAL (PRIMARY) HYPERTENSION 03/05/2016 GARRET SEGUNDO CLOUD SECURITY ARCHITECT Ot Z79.899 OTHER MCFP (CURRENT) DRUG THERAPY 03/25/2016 ANDREI, BOBAN N Ot C85.90 NON-HODGKIN LYMPHOMA, UNSPECIFIED, UNSPE 03/25/2016 ANDREI, BOBAN N Ot I10 ESSENTIAL (PRIMARY) HYPERTENSION 03/25/2016 ANDREI, BOBAN N Ot M19.90 UNSPECIFIED OSTEOARTHRITIS, UNSPECIFIED 03/25/2016 ANDREI, BOBAN N Ot Z79.899 OTHER MCFP (CURRENT) DRUG THERAPY 03/26/2016 RAMÓN MCCLURE 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 Ot R09.82 POSTNASAL DRIP 03/31/2016 ANDREI, LUCIANOAN N Ot C85.90 NON-HODGKIN LYMPHOMA, UNSPECIFIED, UNSPE 03/31/2016 ANDREI, BOBAN N Ot I10 ESSENTIAL (PRIMARY) HYPERTENSION 03/31/2016 ANDREI, BOBAN N Ot M19.90 UNSPECIFIED OSTEOARTHRITIS, UNSPECIFIED 03/31/2016 ANDREI, BOBAN N Ot Z79.899 OTHER DIRECTOR HEALTH (CURRENT) DRUG THERAPY 04/10/2016 RAMÓN MCCLURE 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 Ot R09.82 POSTNASAL DRIP 04/22/2016 ANDREI, BOBAN N Ot C85.90 NON-HODGKIN LYMPHOMA, UNSPECIFIED, UNSPE 04/22/2016 ANDREI, BOBAN N Ot I10 ESSENTIAL (PRIMARY) HYPERTENSION 04/22/2016 ANDREI, BOBAN N Ot M19.90 UNSPECIFIED OSTEOARTHRITIS, UNSPECIFIED 04/22/2016 ANDREILUCIANOAN N Ot Z79.899 OTHER DIRECTOR HEALTH (CURRENT) DRUG THERAPY 04/26/2016 ANDREILUCIANOAN N Ot C85.90 NON-HODGKIN LYMPHOMA, UNSPECIFIED, UNSPE 04/26/2016 ANDREI BOBAN N Ot I10 ESSENTIAL (PRIMARY) HYPERTENSION 04/26/2016 ANDREILUCIANOAN N Ot M19.90 UNSPECIFIED OSTEOARTHRITIS, UNSPECIFIED 04/26/2016 ANDREI BOBЕЛЕНА N Ot Z79.899 OTHER MCFP (CURRENT) DRUG THERAPY 05/23/2016 ANDREI BOBAN N Ot C85.90 NON-HODGKIN LYMPHOMA, UNSPECIFIED, UNSPE 05/23/2016 ANDREI, BOBAN N Ot I10 ESSENTIAL (PRIMARY) HYPERTENSION 05/23/2016 ANDREI BOBЕЛЕНА N Ot M19.90 UNSPECIFIED OSTEOARTHRITIS, UNSPECIFIED 05/23/2016 ANDREITATYANA N Ot Z45.2 ENCOUNTER FOR ADJUSTMENT AND MANAGEMENT 05/23/2016 ANDREITATYANA N Ot Z79.899 OTHER DIRECTOR HEALTH (CURRENT) DRUG THERAPY 05/23/2016 ANDREI BOBAN N Ot C85.90 NON-HODGKIN LYMPHOMA, UNSPECIFIED, UNSPE 05/23/2016 ANDREI BOBAN N Ot I10 ESSENTIAL (PRIMARY) HYPERTENSION 05/23/2016 ANDREI BOBЕЛЕНА N Ot M19.90 UNSPECIFIED OSTEOARTHRITIS, UNSPECIFIED 05/23/2016 ANDREI BOBAN N Ot Z45.2 ENCOUNTER FOR ADJUSTMENT AND MANAGEMENT 05/23/2016 ANDREITATYANA N Ot Z79.899 OTHER MCFP (CURRENT) DRUG THERAPY 07/10/2016 CHERYL ZHOU DO [...] FOR MALIGNANT NE 07/10/2016 DARIUSZ ANTOINE Rajat 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 Ot R10.32 LEFT LOWER QUADRANT PAIN 07/10/2016 DARIUSZ ANTOINE 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 Ot R19.04 LEFT LOWER QUADRANT ABDOMINAL SWELLING, 07/10/2016 TATYANA FORBES Ot C85.90 NON-HODGKIN LYMPHOMA, UNSPECIFIED, UNSPE 07/10/2016 GARRET SEGUNDO CLOUD SECURITY ARCHITECT Ot 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, INTRA 07/10/2016 GARRET SEGUNDO CLOUD SECURITY ARCHITECT Ot 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, UNSP, NODES OF ING RE 07/10/2016 GARRET SEGUNDO S CLOUD SECURITY ARCHITECT Ot I10 ESSENTIAL (PRIMARY) HYPERTENSION 07/10/2016 GARRET SEGUNDO CLOUD SECURITY ARCHITECT Ot M16.0 BILATERAL PRIMARY OSTEOARTHRITIS OF HIP 07/10/2016 GARRET SEGUNDO CLOUD SECURITY ARCHITECT Ot M17.0 BILATERAL PRIMARY OSTEOARTHRITIS OF KNEE 07/10/2016 TATYANA FORBES Ot 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, INTRA 07/10/2016 TATYANA FORBES Ot 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, INTRA 07/10/2016 TATYANA FORBES Ot Z51.81 ENCOUNTER FOR THERAPEUTIC DRUG LEVEL MON 07/10/2016 TATYANA FORBES Ot Z79.899 OTHER MCFP (CURRENT) DRUG THERAPY 07/10/2016 GARRET SEGUNDO CLOUD SECURITY ARCHITECT Ot R05 COUGH 07/10/2016 GARRET SEGUNDO CLOUD SECURITY ARCHITECT Ot 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, UNSP, NODES OF ING RE 07/10/2016 GARRET SEGUNDO CLOUD SECURITY ARCHITECT Ot I10 ESSENTIAL (PRIMARY) HYPERTENSION 07/10/2016 GARRET SEGUNDO CLOUD SECURITY ARCHITECT Ot Z79.899 OTHER DIRECTOR HEALTH (CURRENT) DRUG THERAPY 07/10/2016 RAMÓN MCCLURE 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 Ot R09.82 POSTNASAL DRIP 07/10/2016 TATYANA FORBES Ot C85.90 NON-HODGKIN LYMPHOMA, UNSPECIFIED, UNSPE 07/10/2016 TATYANA FORBES Ot I10 ESSENTIAL (PRIMARY) HYPERTENSION 07/10/2016 TATYANA FORBES Ot M19.90 UNSPECIFIED OSTEOARTHRITIS, UNSPECIFIED 07/10/2016 ANDREI, BOBAN N Ot Z45.2 ENCOUNTER FOR ADJUSTMENT AND MANAGEMENT 07/10/2016 ANDREI, TATYANA N Ot Z79.899 OTHER MCFP (CURRENT) DRUG THERAPY 07/18/2016 ANDREITATYANA N Ot C85.90 NON-HODGKIN LYMPHOMA, UNSPECIFIED, UNSPE 07/18/2016 ANDREI, LUCIANOAN N Ot I10 ESSENTIAL (PRIMARY) HYPERTENSION 07/18/2016 ANDREITATYANA N Ot M19.90 UNSPECIFIED OSTEOARTHRITIS, UNSPECIFIED 07/18/2016 ANDREITATYANA N Ot Z45.2 ENCOUNTER FOR ADJUSTMENT AND MANAGEMENT 07/18/2016 ANDREITATYANA N Ot Z79.899 OTHER MCFP (CURRENT) DRUG THERAPY 07/24/2016 ANDREITATYANA N Ot C85.90 NON-HODGKIN LYMPHOMA, UNSPECIFIED, UNSPE 07/24/2016 ANDREITATYANA N Ot I10 ESSENTIAL (PRIMARY) HYPERTENSION 07/24/2016 ANDREITATYANA RECINOS N Ot M19.90 UNSPECIFIED OSTEOARTHRITIS, UNSPECIFIED 07/24/2016 ANDREITATYANA N Ot Z45.2 ENCOUNTER FOR ADJUSTMENT AND MANAGEMENT 07/24/2016 ANDREITATYANA N Ot Z51.11 ENCOUNTER FOR ANTINEOPLASTIC CHEMOTHERAP 07/24/2016 ANDREITATYANA N Ot Z79.899 OTHER DIRECTOR HEALTH (CURRENT) DRUG THERAPY 07/30/2016 TATYANA FORBES N Ot C85.90 NON-HODGKIN LYMPHOMA, UNSPECIFIED, UNSPE 07/30/2016 ANDREITATYANA N Ot I10 ESSENTIAL (PRIMARY) HYPERTENSION 07/30/2016 TATYANA FORBES N Ot M19.90 UNSPECIFIED OSTEOARTHRITIS, UNSPECIFIED 07/30/2016 ANDREITATYANA N Ot Z45.2 ENCOUNTER FOR ADJUSTMENT AND MANAGEMENT 07/30/2016 ANDREITATYANA N Ot Z51.11 ENCOUNTER FOR ANTINEOPLASTIC CHEMOTHERAP 07/30/2016 ANDREITATYANA N Ot Z79.899 OTHER DIRECTOR HEALTH (CURRENT) DRUG THERAPY 08/16/2016 TATYANA FORBES N Ot C85.90 NON-HODGKIN LYMPHOMA, UNSPECIFIED, UNSPE 08/16/2016 ANDREILUCIANOAN N Ot I10 ESSENTIAL (PRIMARY) HYPERTENSION 08/16/2016 TATYANA FORBES N Ot M19.90 UNSPECIFIED OSTEOARTHRITIS, UNSPECIFIED 08/16/2016 ANDREITATYANA N Ot Z45.2 ENCOUNTER FOR ADJUSTMENT AND MANAGEMENT 08/16/2016 TATYANA FORBES N Ot Z79.899 OTHER DIRECTOR HEALTH (CURRENT) DRUG THERAPY 09/12/2016 TATYANA FORBES Rajat Ot C85.90 NON-HODGKIN LYMPHOMA, UNSPECIFIED, UNSPE 09/12/2016 TATYANA FORBES N Ot I10 ESSENTIAL (PRIMARY) HYPERTENSION 09/12/2016 TATYANA FORBES N Ot M19.90 UNSPECIFIED OSTEOARTHRITIS, UNSPECIFIED 09/12/2016 TATYANA FORBES Rajat Ot Z45.2 ENCOUNTER FOR ADJUSTMENT AND MANAGEMENT 09/12/2016 TATYANA FORBES N Ot Z79.899 OTHER MCFP (CURRENT) DRUG THERAPY 09/23/2016 TATYANA FORBES N Ot C85.90 NON-HODGKIN LYMPHOMA, UNSPECIFIED, UNSPE 09/23/2016 TATYANA FORBES N Ot I10 ESSENTIAL (PRIMARY) HYPERTENSION 09/23/2016 TATYANA FORBES Rajat Ot M19.90 UNSPECIFIED OSTEOARTHRITIS, UNSPECIFIED 09/23/2016 TATYANA FORBES Rajat Ot Z45.2 ENCOUNTER FOR ADJUSTMENT AND MANAGEMENT 09/23/2016 TATYANA FORBES Rajat Ot Z79.899 OTHER DIRECTOR HEALTH (CURRENT) DRUG THERAPY 11/13/2016 TATYANA FORBES N Ot C85.90 NON-HODGKIN LYMPHOMA, UNSPECIFIED, UNSPE 11/13/2016 TATYANA FORBES Rajat Ot I10 ESSENTIAL (PRIMARY) HYPERTENSION 11/13/2016 TATYANA FORBES N Ot M19.90 UNSPECIFIED OSTEOARTHRITIS, UNSPECIFIED 11/13/2016 TATYANA FORBES Rajat Ot Z45.2 ENCOUNTER FOR ADJUSTMENT AND MANAGEMENT 11/13/2016 TATYANA FORBES Rajat Ot Z79.899 OTHER DIRECTOR HEALTH (CURRENT) DRUG THERAPY 12/01/2016 GARRET SEGUNDO CLOUD SECURITY ARCHITECT Ot 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, INTRA 12/01/2016 GARRET SEGUNDOP Ot 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, INTRA 12/01/2016 GARRET SEGUNDO CLOUD SECURITY ARCHITECT Ot 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, [...] MAMMOGRAM FOR MALIGNANT NE 12/02/2016 DARIUSZ ANTOINE 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 Ot R10.32 LEFT LOWER QUADRANT PAIN 12/02/2016 DARIUSZ ANTOINE 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 Ot R19.04 LEFT LOWER QUADRANT ABDOMINAL SWELLING, 12/02/2016 TATYANA FORBES Ot C85.90 NON-HODGKIN LYMPHOMA, UNSPECIFIED, UNSPE 12/02/2016 GARRET SEGUNDOP Ot 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, INTRA 12/02/2016 GARRET SEGUNDOP Ot 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, UNSP, NODES OF ING RE 12/02/2016 GARRET SEGUNDO CLOUD SECURITY ARCHITECT Ot I10 ESSENTIAL (PRIMARY) HYPERTENSION 12/02/2016 GARRET [...] MON 12/02/2016 TATYANA FORBES Ot Z79.899 OTHER MCFP (CURRENT) DRUG THERAPY 12/02/2016 GARRET SEGUNDOP Ot R05 COUGH 12/02/2016 GARRET SEGUNDOP Ot 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, UNSP, NODES OF ING RE 12/02/2016 GARRET SEGUNDO CLOUD SECURITY ARCHITECT Ot I10 ESSENTIAL (PRIMARY) HYPERTENSION 12/02/2016 GARRET SEGUNDO CLOUD SECURITY ARCHITECT Ot Z79.899 OTHER DIRECTOR HEALTH (CURRENT) DRUG THERAPY 12/02/2016 RAMÓN MCCLURE APRN Ot R09.82 POSTNASAL DRIP 12/02/2016 ANDREITATYANA N Ot C85.90 NON-HODGKIN LYMPHOMA, UNSPECIFIED, UNSPE 12/02/2016 ANDREITATYANA N Ot I10 ESSENTIAL (PRIMARY) HYPERTENSION 12/02/2016 ANDREITATYANA N Ot M19.90 UNSPECIFIED OSTEOARTHRITIS, UNSPECIFIED 12/02/2016 ANDREITATYANA N Ot Z45.2 ENCOUNTER FOR ADJUSTMENT AND MANAGEMENT 12/02/2016 ANDREI BOBAN N Ot Z79.899 OTHER MCFP (CURRENT) DRUG THERAPY 12/17/2016 ANDREI, BOBAN N Ot C85.90 NON-HODGKIN LYMPHOMA, UNSPECIFIED, UNSPE 12/17/2016 ANDREI BOBЕЛЕНА N Ot I10 ESSENTIAL (PRIMARY) HYPERTENSION 12/17/2016 ANDREI BOBЕЛЕНА N Ot M19.90 UNSPECIFIED OSTEOARTHRITIS, UNSPECIFIED 12/17/2016 ANDREITATYANA N Ot Z45.2 ENCOUNTER FOR ADJUSTMENT AND MANAGEMENT 12/17/2016 ANDREITATYANA N Ot Z79.899 OTHER MCFP (CURRENT) DRUG THERAPY 12/27/2016 ANDREI BOBAN N Ot C85.90 NON-HODGKIN LYMPHOMA, UNSPECIFIED, UNSPE 12/27/2016 ANDREI BOBЕЛЕНА N Ot I10 ESSENTIAL (PRIMARY) HYPERTENSION 12/27/2016 ANDREI BOBЕЛЕНА N Ot M19.90 UNSPECIFIED OSTEOARTHRITIS, UNSPECIFIED 12/27/2016 ANDREI BOBЕЛЕНА N Ot Z45.2 ENCOUNTER FOR ADJUSTMENT AND MANAGEMENT 12/27/2016 ANDREITATYANA N Ot Z79.899 OTHER MCFP (CURRENT) DRUG THERAPY 01/02/2017 ANDREI, BOBAN N Ot C85.90 NON-HODGKIN LYMPHOMA, UNSPECIFIED, UNSPE 01/02/2017 ANDREI, BOBAN N Ot I10 ESSENTIAL (PRIMARY) HYPERTENSION 01/02/2017 ANDREI, BOBAN N Ot M19.90 UNSPECIFIED OSTEOARTHRITIS, UNSPECIFIED 01/02/2017 ANDREI BOBAN N Ot Z45.2 ENCOUNTER FOR ADJUSTMENT AND MANAGEMENT 01/02/2017 ANDREI BOBAN N Ot Z79.899 OTHER DIRECTOR HEALTH (CURRENT) DRUG THERAPY 02/27/2017 ANDREI BOBAN N Ot C85.90 NON-HODGKIN LYMPHOMA, UNSPECIFIED, UNSPE 02/27/2017 ANDREI BOBAN N Ot I10 ESSENTIAL (PRIMARY) HYPERTENSION 02/27/2017 ANDREI, BOBAN N Ot M19.90 UNSPECIFIED OSTEOARTHRITIS, UNSPECIFIED 02/27/2017 ANDREI BOBAN N Ot Z45.2 ENCOUNTER FOR ADJUSTMENT AND MANAGEMENT 02/27/2017 ANDREILUCIANO RECINOSAN N Ot Z79.899 OTHER DIRECTOR HEALTH (CURRENT) DRUG THERAPY 03/02/2017 ANDREI BOBAN N Ot C85.90 NON-HODGKIN LYMPHOMA, UNSPECIFIED, UNSPE 03/02/2017 ANDREI, BOBAN N Ot I10 ESSENTIAL (PRIMARY) HYPERTENSION 03/02/2017 ANDREILUCIANOAN N Ot M19.90 UNSPECIFIED OSTEOARTHRITIS, UNSPECIFIED 03/02/2017 ANDREI BOBAN N Ot Z45.2 ENCOUNTER FOR ADJUSTMENT AND MANAGEMENT 03/02/2017 ANDREI BOBAN N Ot Z51.11 ENCOUNTER FOR ANTINEOPLASTIC CHEMOTHERAP 03/02/2017 ANDREI BOBAN N Ot Z79.899 OTHER DIRECTOR HEALTH (CURRENT) DRUG THERAPY 03/26/2017 ANDREI BOBAN N Ot C85.90 NON-HODGKIN LYMPHOMA, UNSPECIFIED, UNSPE 03/26/2017 ANDREI BOBAN N Ot I10 ESSENTIAL (PRIMARY) HYPERTENSION 03/26/2017 ANDREI BOBAN N Ot M19.90 UNSPECIFIED OSTEOARTHRITIS, UNSPECIFIED 03/26/2017 ANDREI BOBAN N Ot Z45.2 ENCOUNTER FOR ADJUSTMENT AND MANAGEMENT 03/26/2017 ANDREI BOBAN N Ot Z79.899 OTHER DIRECTOR HEALTH (CURRENT) DRUG THERAPY 04/11/2017 ANDREI BOBAN N Ot C85.90 NON-HODGKIN LYMPHOMA, UNSPECIFIED, UNSPE 04/11/2017 ANDREI BOBAN N Ot I10 ESSENTIAL (PRIMARY) HYPERTENSION 04/11/2017 ANDREI, BOBAN N Ot M19.90 UNSPECIFIED OSTEOARTHRITIS, UNSPECIFIED 04/11/2017 ANDREI BOBAN N Ot Z45.2 ENCOUNTER FOR ADJUSTMENT AND MANAGEMENT 04/11/2017 ANDREI BOBAN N Ot Z51.11 ENCOUNTER FOR ANTINEOPLASTIC CHEMOTHERAP 04/11/2017 ANDREI BOBAN N Ot Z79.899 OTHER [facility]FP (CURRENT) DRUG THERAPY 04/12/2017 ANDREI, BOBAN N Ot C85.90 NON-HODGKIN LYMPHOMA, UNSPECIFIED, UNSPE 04/12/2017 ANDREI, BOBAN N Ot I10 ESSENTIAL (PRIMARY) HYPERTENSION 04/12/2017 ANDREI, BOBAN N Ot M19.90 UNSPECIFIED OSTEOARTHRITIS, UNSPECIFIED 04/12/2017 ANDREI BOBAN N Ot Z45.2 ENCOUNTER FOR ADJUSTMENT AND MANAGEMENT 04/12/2017 ANDREI BOBAN N Ot Z79.899 OTHER DIRECTOR HEALTH (CURRENT) DRUG THERAPY 04/18/2017 ANDREI, BOBAN N Ot C85.90 NON-HODGKIN LYMPHOMA, UNSPECIFIED, UNSPE 04/18/2017 ANDREI BOBAN N Ot I10 ESSENTIAL (PRIMARY) HYPERTENSION 04/18/2017 ANDREI, BOBAN N Ot M19.90 UNSPECIFIED OSTEOARTHRITIS, UNSPECIFIED 04/18/2017 ANDREI BOBAN N Ot Z45.2 ENCOUNTER FOR ADJUSTMENT AND MANAGEMENT 04/18/2017 ANDREI, BOBAN N Ot Z79.899 OTHER DIRECTOR HEALTH (CURRENT) DRUG THERAPY 04/28/2017 ANDREI, BOBAN N Ot 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, INTRA 04/28/2017 ANDREI BOBAN N Ot I10 ESSENTIAL (PRIMARY) HYPERTENSION 04/28/2017 ANDREI, BOBAN N Ot M19.90 UNSPECIFIED OSTEOARTHRITIS, UNSPECIFIED 04/28/2017 ANDREI, BOBAN N Ot Z51.11 ENCOUNTER FOR ANTINEOPLASTIC CHEMOTHERAP 04/28/2017 ANDREI, BOBAN N Ot Z79.899 OTHER DIRECTOR HEALTH (CURRENT) DRUG THERAPY 05/30/2017 ANDREI, BOBAN N Ot 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, INTRA 05/30/2017 ANDREI, BOBAN N Ot I10 ESSENTIAL (PRIMARY) HYPERTENSION 05/30/2017 ANDREI, BOBAN N Ot M19.90 UNSPECIFIED OSTEOARTHRITIS, UNSPECIFIED 05/30/2017 ANDREI, BOBAN N Ot Z51.11 ENCOUNTER FOR ANTINEOPLASTIC CHEMOTHERAP 05/30/2017 ANDREI, BOBAN N Ot Z79.899 OTHER DIRECTOR HEALTH (CURRENT) DRUG THERAPY 06/13/2017 REYNA SAUNDERS Ot [...] CHEMOTHERAP 06/19/2017 TATYANA FORBES Ot Z79.899 OTHER [facility] (CURRENT) DRUG THERAPY 07/23/2017 TATYANA FORBES Ot 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, INTRA 07/23/2017 TATYANA FORBES Ot I10 ESSENTIAL (PRIMARY) HYPERTENSION 07/23/2017 TATYANA FORBES N Ot M19.90 UNSPECIFIED OSTEOARTHRITIS, UNSPECIFIED 07/23/2017 TATYANA FORBES Ot Z51.11 ENCOUNTER FOR ANTINEOPLASTIC CHEMOTHERAP 07/23/2017 TATYANA FORBES N Ot Z79.899 OTHER DIRECTOR HEALTH (CURRENT) DRUG THERAPY 07/31/2017 REYNA SAUNDERS Ot [...] 08/06/2017 IGOR LIPSCOMB MD Ot Z79.899 OTHER [facility] (CURRENT) DRUG THERAPY 08/07/2017 IGOR LIPSCOMB MD Ot 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, INTRA 08/07/2017 IGOR LIPSCOMB MD Ot I10 ESSENTIAL (PRIMARY) HYPERTENSION 08/07/2017 IGOR LIPSCOMB MD Ot M19.90 UNSPECIFIED OSTEOARTHRITIS, UNSPECIFIED 08/07/2017 IGOR LIPSCOMB MD Ot Z51.11 ENCOUNTER FOR ANTINEOPLASTIC CHEMOTHERAP 08/07/2017 IGOR LIPSCOMB MD Ot Z79.899 OTHER [facility] (CURRENT) DRUG THERAPY 09/17/2017 CHERYL ZHOU DO Ot Z12.31 ENCNTR SCREEN MAMMOGRAM FOR MALIGNANT NE 09/22/2017 IGOR LIPSCOMB MD Ot 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, INTRA 09/22/2017 IGOR LIPSCOMB MD Ot I10 ESSENTIAL (PRIMARY) HYPERTENSION 09/22/2017 IGOR LIPSCOMB MD Ot M19.90 UNSPECIFIED OSTEOARTHRITIS, UNSPECIFIED 09/22/2017 IGOR LIPSCOMB MD Ot Z51.11 ENCOUNTER FOR ANTINEOPLASTIC CHEMOTHERAP 09/22/2017 IGOR LIPSCOMB MD Ot Z79.899 OTHER [facility] (CURRENT) DRUG THERAPY 09/29/2017 MELI ZHOU DOLINE S Ot Z12.31 ENCNTR SCREEN MAMMOGRAM FOR MALIGNANT NE 10/15/2017 IGOR LIPSCOMB MD Ot 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, INTRA 10/15/2017 IGOR LIPSCOMB MD Ot I10 ESSENTIAL (PRIMARY) HYPERTENSION 10/15/2017 IGOR LIPSCOMB MD Ot M19.90 UNSPECIFIED OSTEOARTHRITIS, UNSPECIFIED 10/15/2017 IGOR LIPSCOMB MD Ot Z51.11 ENCOUNTER FOR ANTINEOPLASTIC CHEMOTHERAP 10/15/2017 IGOR LIPSCOMB MD Ot Z79.899 OTHER [facility] (CURRENT) DRUG THERAPY 10/15/2017 IGOR LIPSCOMB MD Ot 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, INTRA 10/15/2017 IGOR LIPSCOMB MD Ot I10 ESSENTIAL (PRIMARY) HYPERTENSION 10/15/2017 IGOR LIPSCOMB MD Ot M19.90 UNSPECIFIED OSTEOARTHRITIS, UNSPECIFIED 10/15/2017 IGOR LIPSCOMB MD Ot Z51.11 ENCOUNTER FOR ANTINEOPLASTIC CHEMOTHERAP 10/15/2017 IGOR LIPSCOMB MD Ot Z79.899 OTHER DIRECTOR HEALTH (CURRENT) DRUG THERAPY 10/16/2017 IGOR LIPSCOMB MD Ot 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, INTRA 10/16/2017 IGOR LIPSCOMB MD Ot I10 ESSENTIAL (PRIMARY) HYPERTENSION 10/16/2017 IGOR LIPSCOMB MD Ot M19.90 UNSPECIFIED OSTEOARTHRITIS, UNSPECIFIED 10/16/2017 IGOR LIPSCOMB MD Ot Z51.11 ENCOUNTER FOR ANTINEOPLASTIC CHEMOTHERAP 10/16/2017 IGOR LIPSCOMB MD Ot Z79.899 OTHER DIRECTOR HEALTH (CURRENT) DRUG THERAPY 10/27/2017 MELI ZHOU DOLINE [...] FOR MALIGNANT NE 10/27/2017 ELINA DARIUSZ N 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 Ot R10.32 LEFT LOWER QUADRANT PAIN 10/27/2017 ELINA 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 N 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 Ot R19.04 LEFT LOWER QUADRANT ABDOMINAL SWELLING, 10/27/2017 TATYANA FORBES Ot C85.90 NON-HODGKIN LYMPHOMA, UNSPECIFIED, UNSPE 10/27/2017 GARRET SEGUNDO CLOUD SECURITY ARCHITECT Ot 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, INTRA 10/27/2017 GARRET SEGUNDO CLOUD SECURITY ARCHITECT Ot 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, UNSP, NODES OF ING RE 10/27/2017 GARRET SEGUNDO CLOUD SECURITY ARCHITECT Ot I10 ESSENTIAL (PRIMARY) HYPERTENSION 10/27/2017 GARRET SEGUNDOP Ot M16.0 BILATERAL PRIMARY OSTEOARTHRITIS OF HIP 10/27/2017 GARRET SEGUNDO CLOUD SECURITY ARCHITECT Ot M17.0 BILATERAL PRIMARY OSTEOARTHRITIS OF KNEE 10/27/2017 TATYANA FORBES Ot 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, INTRA 10/27/2017 TATYANA FORBES Ot 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, INTRA 10/27/2017 TATYANA FORBES Ot Z51.81 ENCOUNTER FOR THERAPEUTIC DRUG LEVEL MON 10/27/2017 TATYANA FORBES Ot Z79.899 OTHER DIRECTOR HEALTH (CURRENT) DRUG THERAPY 10/27/2017 GARRET SEGUNDO CLOUD SECURITY ARCHITECT Ot R05 COUGH 10/27/2017 GARRET SEGUNDO CLOUD SECURITY ARCHITECT Ot 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, UNSP, NODES OF ING RE 10/27/2017 GARRET SEGUNDO CLOUD SECURITY ARCHITECT Ot I10 ESSENTIAL (PRIMARY) HYPERTENSION 10/27/2017 GARRET SEGUNDO CLOUD SECURITY ARCHITECT Ot Z79.899 OTHER [facility] (CURRENT) DRUG THERAPY 10/27/2017 RAMÓN MCCLURE 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 Ot R09.82 POSTNASAL DRIP 10/27/2017 RUEL CASIANO, IGOR Ot 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, INTRA 10/27/2017 UREL CASIANO, IGOR Ot I10 ESSENTIAL (PRIMARY) HYPERTENSION 10/27/2017 RUEL CASIANO, IGOR Ot M19.90 UNSPECIFIED OSTEOARTHRITIS, UNSPECIFIED 10/27/2017 IGOR LIPSCOMB MD Ot Z51.11 ENCOUNTER FOR ANTINEOPLASTIC CHEMOTHERAP 10/27/2017 IGOR LIPSCOMB MD Ot Z79.899 OTHER DIRECTOR HEALTH (CURRENT) DRUG THERAPY 10/27/2017 ORENDER DOMELICHERYL S [...] 11/03/2017 JANAY RICHARDSON MD Ot Z79.899 OTHER [facility] (CURRENT) DRUG THERAPY 11/04/2017 JANAY RICHARDSON MD [...] 11/04/2017 JANAY RICHARDSON MD Ot Z79.899 OTHER DIRECTOR HEALTH (CURRENT) DRUG THERAPY 11/04/2017 JANAY RICHARDSON MD [...] 11/04/2017 JANAY RICHARDSON MD Ot Z79.899 OTHER DIRECTOR HEALTH (CURRENT) DRUG THERAPY 11/09/2017 JANAY RICHARDSON MD [...] 11/09/2017 JANAY RICHARDSON MD Ot Z79.899 OTHER DIRECTOR HEALTH (CURRENT) DRUG THERAPY 11/12/2017 IGOR LIPSCOMB MD Ot 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, INTRA 11/12/2017 IGOR LIPSCOMB MD Ot I10 ESSENTIAL (PRIMARY) HYPERTENSION 11/12/2017 IGOR LIPSCOMB MD Ot M19.90 UNSPECIFIED OSTEOARTHRITIS, UNSPECIFIED 11/12/2017 IGOR LIPSCOMB MD Ot Z51.11 ENCOUNTER FOR ANTINEOPLASTIC CHEMOTHERAP 11/12/2017 IGOR LIPSCOMB MD Ot Z79.899 OTHER [facility] (CURRENT) DRUG THERAPY 11/13/2017 IGOR LIPSCOMB MD Ot 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, INTRA 11/13/2017 IGOR LIPSCOMB MD Ot I10 ESSENTIAL (PRIMARY) HYPERTENSION 11/13/2017 IGOR LIPSCOMB MD Ot M19.90 UNSPECIFIED OSTEOARTHRITIS, UNSPECIFIED 11/13/2017 IGOR LIPSCOMB MD Ot Z51.11 ENCOUNTER FOR ANTINEOPLASTIC CHEMOTHERAP 11/13/2017 IGOR LIPSCOMB MD Ot Z79.899 OTHER [facility] (CURRENT) DRUG THERAPY 12/22/2017 IGOR LIPSCOMB MD Ot 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, INTRA 12/22/2017 IGOR LIPSCOMB MD Ot I10 ESSENTIAL (PRIMARY) HYPERTENSION 12/22/2017 IGOR LIPSCOMB MD Ot M19.90 UNSPECIFIED OSTEOARTHRITIS, UNSPECIFIED 12/22/2017 IGOR LIPSCOMB MD Ot Z51.11 ENCOUNTER FOR ANTINEOPLASTIC CHEMOTHERAP 12/22/2017 IGOR LIPSCOMB MD Ot Z79.899 OTHER [facility] (CURRENT) DRUG THERAPY 12/24/2017 IGOR LIPSCOMB MD Ot 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, INTRA 12/24/2017 IGOR LIPSCOMB MD Ot I10 ESSENTIAL (PRIMARY) HYPERTENSION 12/24/2017 IGOR LIPSCOMB MD Ot M19.90 UNSPECIFIED OSTEOARTHRITIS, UNSPECIFIED 12/24/2017 IGOR LIPSCOMB MD Ot Z45.2 ENCOUNTER FOR ADJUSTMENT AND MANAGEMENT 12/24/2017 IGOR LIPSCOMB MD Ot Z51.11 ENCOUNTER FOR ANTINEOPLASTIC CHEMOTHERAP 12/24/2017 IGOR LIPSCOMB MD Ot Z79.899 OTHER [facility] (CURRENT) DRUG THERAPY 03/25/2018 KEITH WALKER Ot [...] 04/12/2018 ANDREI, BOBAN N Ot Z79.899 OTHER [facility] (CURRENT) DRUG THERAPY 04/14/2018 ANDREI, BOBAN N Ot 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, INTRA 04/14/2018 ANDREI, BOBAN N Ot I10 ESSENTIAL (PRIMARY) HYPERTENSION 04/14/2018 ANDREI, BOBAN N Ot M19.90 UNSPECIFIED OSTEOARTHRITIS, UNSPECIFIED 04/14/2018 ANDREI, BOBAN N Ot Z45.2 ENCOUNTER FOR ADJUSTMENT AND MANAGEMENT 04/14/2018 ANDREI, BOBAN N Ot Z79.899 OTHER DIRECTOR HEALTH (CURRENT) DRUG THERAPY 04/17/2018 ANDREI, BOBAN N Ot 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, INTRA 04/17/2018 ANDREI, BOBAN N Ot I10 ESSENTIAL (PRIMARY) HYPERTENSION 04/17/2018 ANDREI, BOBAN N Ot M19.90 UNSPECIFIED OSTEOARTHRITIS, UNSPECIFIED 04/17/2018 ANDREI, BOBAN N Ot Z45.2 ENCOUNTER FOR ADJUSTMENT AND MANAGEMENT 04/17/2018 ANDREI, BOBAN N Ot Z79.899 OTHER DIRECTOR HEALTH (CURRENT) DRUG THERAPY 04/19/2018 ANDREI, BOBAN N Ot 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, INTRA 04/19/2018 ANDREI, BOBAN N Ot I10 ESSENTIAL (PRIMARY) HYPERTENSION 04/19/2018 ANDREI, BOBAN N Ot M19.90 UNSPECIFIED OSTEOARTHRITIS, UNSPECIFIED 04/19/2018 ANDREI, BOBAN N Ot Z45.2 ENCOUNTER FOR ADJUSTMENT AND MANAGEMENT 04/19/2018 ANDREI, BOBAN N Ot Z79.899 OTHER [facility] (CURRENT) DRUG THERAPY 04/19/2018 VAIBHAV CASIANO, XIOMARA Rees Ot F32.9 MAJOR DEPRESSIVE DISORDER, SINGLE EPISOD 04/19/2018 VAIBHAV CASIANO, XIOMARA T Ot F41.9 ANXIETY DISORDER, UNSPECIFIED 04/19/2018 XIOMARA ESPOSITO MD, Ot I10 ESSENTIAL (PRIMARY) HYPERTENSION 04/19/2018 XIOMARA ESPOSITO MD, Ot R40.2142 COMA SCALE, EYES OPEN, SPONTANEOUS, EMR 04/19/2018 XIOMARA ESPOSITO MD, Ot R40.2252 COMA SCALE, BEST VERBAL RESPONSE, ORIENT 04/19/2018 XIOMARA ESPOSITO MD, Ot R40.2362 COMA SCALE, BEST MOTOR RESPONSE, OBEYS C 04/19/2018 XIOMARA ESPOSITO MD, Ot S09.90XA UNSPECIFIED INJURY OF HEAD, INITIAL ENCO 04/19/2018 XIOMARA ESPOSITO MD, Ot S30.0XXA CONTUSION OF LOWER BACK AND PELVIS, INIT 04/19/2018 XIOMARA ESPOSITO MD, Ot W07.XXXA FALL FROM CHAIR, INITIAL ENCOUNTER 04/19/2018 XIOMARA ESPOSITO MD, Ot W22.01XA WALKED INTO WALL, INITIAL ENCOUNTER 04/19/2018 XIOMARA ESPOSITO MD, Ot Z85.72 PERSONAL HISTORY OF NON-HODGKIN LYMPHOMA 04/19/2018 XIOMARA ESPOSITO MD, Ot Z88.0 ALLERGY STATUS TO PENICILLIN 04/19/2018 XIOMARA ESPOSITO MD, Ot Z90.710 ACQUIRED ABSENCE OF BOTH CERVIX AND UTER 04/19/2018 XIOMARA ESPOSITO MD, Ot Z92.21 PERSONAL HISTORY OF ANTINEOPLASTIC CHEMO 04/21/2018 XIOMARA ESPOSITO MD, Ot F32.9 MAJOR DEPRESSIVE DISORDER, SINGLE EPISOD 04/21/2018 XIOMARA ESPOSITO MD, Ot F41.9 ANXIETY DISORDER, UNSPECIFIED 04/21/2018 XIOMARA ESPOSITO MD, Ot I10 ESSENTIAL (PRIMARY) HYPERTENSION 04/21/2018 XIOMARA ESPOSITO MD, Ot R40.2142 COMA SCALE, EYES OPEN, SPONTANEOUS, EMR 04/21/2018 XIOMARA ESPOSITO MD, Ot R40.2252 COMA SCALE, BEST VERBAL RESPONSE, ORIENT 04/21/2018 XIOMARA ESPOSITO MD, Ot R40.2362 COMA SCALE, BEST MOTOR RESPONSE, OBEYS C 04/21/2018 XIOMARA ESPOSITO MD, Ot S09.90XA UNSPECIFIED INJURY OF HEAD, INITIAL ENCO 04/21/2018 XIOMARA ESPOSITO MD, Ot S30.0XXA CONTUSION OF LOWER BACK AND PELVIS, INIT 04/21/2018 XIOMARA ESPOSITO MD, Ot W07.XXXA FALL FROM CHAIR, INITIAL ENCOUNTER 04/21/2018 XIOMARA ESPOSITO MD, Ot W22.01XA WALKED INTO WALL, INITIAL ENCOUNTER 04/21/2018 XIOMARA ESPOSITO MD, Ot Z85.72 PERSONAL HISTORY OF NON-HODGKIN LYMPHOMA 04/21/2018 XIOMARA ESPOSITO MD, Ot Z88.0 ALLERGY STATUS TO PENICILLIN 04/21/2018 XIOMARA ESPOSITO MD, Ot Z90.710 ACQUIRED ABSENCE OF BOTH CERVIX AND UTER 04/21/2018 XIOMARA ESPOSITO MD, Ot Z92.21 PERSONAL HISTORY OF ANTINEOPLASTIC CHEMO 04/25/2018 XIOMARA ESPOSITO MD, Ot F32.9 MAJOR DEPRESSIVE DISORDER, SINGLE EPISOD 04/25/2018 XIOMARA ESPOSITO MD, Ot F41.9 ANXIETY DISORDER, UNSPECIFIED 04/25/2018 XIOMARA ESPOSITO MD Ot I10 ESSENTIAL (PRIMARY) HYPERTENSION 04/25/2018 XIOMARA ESPOSITO MD, Ot R40.2142 COMA SCALE, EYES OPEN, SPONTANEOUS, EMR 04/25/2018 XIOMARA ESPOSITO MD, Ot R40.2252 COMA SCALE, BEST VERBAL RESPONSE, ORIENT 04/25/2018 XIOMARA ESPOSITO MD, Ot R40.2362 COMA SCALE, BEST MOTOR RESPONSE, OBEYS C 04/25/2018 XIOMARA ESPOSITO MD, Ot S09.90XA UNSPECIFIED INJURY OF HEAD, INITIAL ENCO 04/25/2018 XIOMARA ESPOSITO MD, Ot S30.0XXA CONTUSION OF LOWER BACK AND PELVIS, INIT 04/25/2018 XIOMARA ESPOSITO MD, Ot W07.XXXA FALL FROM CHAIR, INITIAL ENCOUNTER 04/25/2018 XIOMARA ESPOSITO MD, Ot W22.01XA WALKED INTO WALL, INITIAL ENCOUNTER 04/25/2018 VAIBHAV CASIANO, XIOMARA Rees Ot Z85.72 PERSONAL HISTORY OF NON-HODGKIN LYMPHOMA 04/25/2018 XIOMARA ESPOSITO MD Ot Z88.0 ALLERGY STATUS TO PENICILLIN 04/25/2018 XIOMARA ESPOSITO MD Ot Z90.710 ACQUIRED ABSENCE OF BOTH CERVIX AND UTER 04/25/2018 XIOMARA ESPOSITO MD Ot Z92.21 PERSONAL HISTORY OF ANTINEOPLASTIC CHEMO 04/28/2018 TATYANA FORBES Ot 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 Results There is no data. Encounters ACCT No. Visit Date/Time Discharge Status Pt. Type Provider Facility Loc./Unit Complaint [id number] 04/21/2014 08:09:00 04/21/2014 23:59:59 CLS Outpatient ANGEL ARANGO DO 07/201704/21/2018 10:06:21 04/21/2018 23:59:59 CLS Outpatient Cheryl Zhou [id number] 04/28/2018 05:35:00 04/28/2018 13:20:00 DIS Outpatient DYLAN CASIANO, JANAY Christiansen [facility] PREOP NON-HODGKINS LYMPHOMA INTRAPELVIC LYMPH NODES [id number] 04/19/2018 18:48:00 04/19/2018 20:55:00 DIS Emergency XIOMARA ESPOSITO MD [facility] ER FALL, HEAD/TAILBONE PAIN [id number] 04/13/2018 01:05:00 04/13/2018 23:59:59 CLS Preadmit TATYANA FORBES [facility] ONC [id number] 03/19/2018 13:02:00 04/12/2018 00:01:00 DIS Outpatient TATYANA FORBES [facility] ONC [id number] 04/09/2018 11:13:00 04/10/2018 15:55:00 DIS Outpatient KEITH WALKER [facility] REHAB BACK AND HIP PAIN [id number] 03/18/2018 13:44:00 03/18/2018 23:59:59 CLS Outpatient TATYANA FORBES [facility] RAD ENCOUNTER FOR IMAGING STUDY TO RESTAGE NEOPLASM [id number] 01/27/2018 09:04:00 01/27/2018 23:59:59 CLS Outpatient IGOR LIPSCOMB MD [facility] ONC [id number] 10/15/2017 07:55:00 11/12/2017 00:01:00 DIS Outpatient IGOR LIPSCOMB MD [facility] ONC [id number] 11/03/2017 06:36:00 11/03/2017 10:23:00 DIS Outpatient JANAY RICHARDSON MD [facility] ENDO SCREENING [id number] 10/28/2017 08:30:00 10/28/2017 08:37:00 DIS Outpatient JANAY RICHARDSON MD [facility] PREOP COLONOSCOPY [id number] 09/16/2017 08:31:00 09/16/2017 23:59:59 CLS Outpatient CHERYL ZHOU DO [facility] RAD B/L SCREENING-3D [id number] 07/31/2017 08:00:00 07/31/2017 08:54:00 DIS Outpatient REYNA SAUNDERS [facility] REHAB L HIP SCIATICA; BURSITIS; L KNEE PAIN [id number] 07/17/2017 09:28:00 07/23/2017 00:01:00 DIS Outpatient TATYANA FORBES [facility] ONC [id number] 03/25/2017 11:49:00 04/12/2017 00:01:00 DIS Outpatient TATYANA FORBES [facility] ONC [id number] 02/27/2017 08:36:00 03/02/2017 00:01:00 DIS Outpatient TATYANA FORBES N [facility] ONC [id number] 11/07/2016 08:18:00 11/13/2016 00:01:00 DIS Outpatient TATYANA FORBES N [facility] ONC [id number] 07/18/2016 09:36:00 07/24/2016 00:01:00 DIS Outpatient TATYANA FORBES N [facility] ONC [id number] 03/27/2016 09:33:00 04/22/2016 13:43:00 DIS Outpatient TATYANA FORBES N [facility] ONC [id number] 03/25/2016 09:16:00 03/25/2016 23:59:59 CLS Outpatient RAMÓN MCCLURE CHAYA [facility] RAD R09.82,CHRONIC NOSE DRAINAGE [id number] 02/22/2016 09:33:00 02/22/2016 23:59:59 CLS Outpatient GARRET SEGUNDOP [facility] ONC [id number] 02/15/2016 09:32:00 02/21/2016 00:01:00 DIS Outpatient TATYANA FORBES Rajat [facility] ONC [id number] 02/08/2016 15:31:00 02/08/2016 23:59:59 CLS Outpatient GARRET SEGUNDO CLOUD SECURITY ARCHITECT [facility] RAD [id number] 01/25/2016 07:13:00 01/25/2016 23:59:59 CLS Outpatient TATYANA FORBES N [facility] RAD NON HODKIN LUMPHOMA OF INTRAPELVIC LYMPH NODES [id number] 01/23/2016 07:07:00 01/23/2016 23:59:59 CLS Outpatient TATYANA FORBES N [facility] CARD NON HODKIN LYMPHOMA OF INTRAPELVIC LYMPH NODES [id number] 12/18/2015 13:13:00 12/18/2015 23:59:59 CLS Outpatient GARRET SEGUNDO CLOUD SECURITY ARCHITECT [facility] ONC [id number] 12/01/2015 15:57:00 12/03/2015 14:16:00 DIS Inpatient TATYANA FORBES [facility] 4TH LOW SODIUM [id number] 11/30/2015 08:39:00 11/30/2015 23:59:59 CLS Outpatient GARRET SEGUNDO [facility] ONC [id number] 11/24/2015 07:42:00 11/24/2015 23:59:59 CLS Outpatient TATYANA FORBES Rajat [facility] RAD LYMPHOMA [id number] 11/21/2015 10:28:00 11/21/2015 16:25:00 DIS Outpatient JANAY RICHARDSON MD [facility] BCELL LYMPHOMA [id number] 11/14/2015 06:54:00 11/14/2015 11:32:00 DIS Outpatient JANAY RICHARDSON MD [facility] LEFT INGUINAL MASS [id number] 10/23/2015 09:57:00 10/23/2015 23:59:59 CLS Outpatient 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 PAIN [id number] 08/22/2015 08:32:00 08/22/2015 23:59:59 CLS Outpatient CHERYL ZHOU DO [facility] RAD SCREENING, KNEE PAIN, FOOT PAIN [id number] 08/02/2014 09:20:00 08/02/2014 23:59:59 CLS Outpatient CHERYL ZHOU DO [facility] RAD HX OF BREAST CA, BREAST ASSYMETRICAL [id number] 05/24/2014 10:32:00 05/31/2014 13:48:00 DIS Outpatient REYNA SAUNDERS [facility] REHAB L OLECRANON FX [id number] 03/19/2014 22:34:00 03/19/2014 23:29:00 DIS Emergency [id number] 04/06/2013 09:35:00 04/06/2013 23:59:59 CLS Outpatient [id number] 05/05/2018 09:26:00 ACT Outpatient JANAY RICHARDSON MD [facility] SDC NON-HODGKINS LYMPHOMA INTRAPELVIC LYMPH NODES [id number] 12/01/2015 15:33:00 Document Registration
[2018-05-05 09:40] VITALS: BP 147/74
[2018-05-05] MEDS ORDERED: MIDAZOLAM 2 MG/2 ML (VERSED) VIAL ONE (09:57)
[2018-05-05] MEDS ORDERED: fentaNYL INJECTION 100 MCG/2 ML AMP ONE (09:57)
[2018-05-05] MEDS ORDERED: VANCOMYCIN INJECTION 1,000 MG in NS (IVPB) 250 ML IV ONE (10:00)
[2018-05-05] MEDS ORDERED: PROPOFOL INJECTION 50 ML IV ONE (10:18)
[2018-05-05] MEDS: LACTATED RINGERS 1,000 ML IV PRN ×2 (10:20→12:25)
[2018-05-05] MEDS ORDERED: BUP/EPI 0.5% 1:200,000 (SENSORCAINE) 30 ML VIAL ONE (10:47)
--- NOTE | 2018-05-05 11:54 | History & Physicial ---
History of Present Illness History of Present Illness Reason for visit/HPI To have her infusaport removed, having completed systemic therapy for B-cell lymphoma Date of Admission 05/05/18 Date Seen by a Provider: May 05, 2018 Time Seen by a Provider: 11:53 I consulted on this patient on 05/05/18 11:52 Attending Physician Janay Ellis MD Admitting Physician Cheryl Zhou DO Consult Allergies and Home Medications Allergies Coded Allergies: Penicillins (Verified Allergy, Mild, RASH, 04/28/18) Home Medications Bisoprolol Fumarate/Hctz 1 Each Tablet, 1 TAB PO DAILY, (Reported) Duloxetine HCl 30 Mg Capsule.dr, 30 MG PO DAILY, (Reported) Estradiol 1 Mg Tablet, 1 MG PO DAILY, (Reported) Naproxen 500 Mg Tablet, 500 MG PO BID, (Reported) Spironolactone 25 Mg Tablet, 25 MG PO DAILY, (Reported) Patient Home Medication List Home Medication List Reviewed: Yes Past Fzgvpmo-Gnslyr-Godlhb Hx Patient Social History Marrital Status: Employed/Student: employed Alcohol Use: Denies Use Recreational Drug Use: No Smoking Status: Never a Smoker 2nd Hand Smoke Exposure: No Recent Foreign Travel: No Contact w/other who traveled: No Recent Hopitalizations: No Recent Infectious Disease Expo: No Immunizations Up To Date Date of Pneumonia Vaccine: Apr 28, 2017 Date of Influenza Vaccine: Mar 30, 2018 Seasonal Allergies Seasonal Allergies: Yes Surgeries Yes (Port, lymph node biopsy) Gallbladder, Hysterectomy Respiratory No Cardiovascular Yes Hypertension Neurological No Reproductive System Hx Reproductive Disorders: No Sexually Transmitted Disease: No HIV/AIDS: No 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 Gastrointestinal No Musculoskeletal Yes (Sciatica, hip bursitis) Arthritis, Chronic Back Pain, Fractures Endocrine History of Endocrine Disorders: No HEENT Loss of Vision: Bilateral Hearing Impairment: Denies Cancer Yes Lymphoma Did You Recieve Any Treatments: Yes Type of Treatment: Chemotherapy Psychosocial History of Psychiatric Problem: Yes (FROM LYMPHOMA) Behavioral Health Disorders: Anxiety, Depression Integumentary History of Skin or Integumenta: No Blood Transfusions History of Blood Disorders: No Adverse Reaction to a Blood Tr: No (N/A) Family Medical History Family Hx: FH: prostate cancer 19 FATHER ( AT AGE 79) Review of Systems Constitutional: no symptoms reported EENTM: no symptoms reported Respiratory: no symptoms reported Cardiovascular: no symptoms reported Gastrointestinal: no symptoms reported Genitourinary: no symptoms reported Musculoskeletal: no symptoms reported Skin: no symptoms reported Psychiatric/Neurological: No Symptoms Reported Physical Exam Vital Signs Vital Signs - First Documented 05/05/18 09:40 Temp 98.0 Pulse 66 Resp 18 B/P (MAP) 147/74 (98) Pulse Ox 98 O2 Delivery Room Air Capillary Refill : Height, Weight, BMI Height: 5'6.00" Weight: 170lbs. 0.0oz. 77.914859jc; 27.4 BMI Method:Stated General Appearance: No Apparent Distress Neck: Normal Inspection Respiratory: Lungs Clear Cardiovascular: Regular Rate, Rhythm Extremity: Normal Inspection Neurologic/Psychiatric: Alert, Oriented x3 Skin: Warm/Dry Assessment/Plan Assessment and Plan Lady with treated B-cell lymphoma, for removal of infusa-port Admission Diagnosis Admission Status: Other (Outpt Proc) JANAY ELLIS MD May 05, 2018 11:54
--- NOTE | 2018-05-05 11:55 | Progress Note-Pre Operative ---
Pre-Operative Progress Note H&P Reviewed The H&P was reviewed, patient examined and no changes noted. Date Seen by Provider: May 05, 2018 Time Seen by Provider: 11:54 Date H&P Reviewed: May 05, 2018 Time H&P Reviewed: 11:54 Pre-Operative Diagnosis: Treated lymphoma JANAY RICHARDSON MD May 05, 2018 11:55
[2018-05-05 13:00] VITALS: BP 139/67
[2018-05-05 13:30] VITALS: BP 154/69
--- NOTE | 2018-05-05 13:40 | Operative Report ---
Operative Report Date of Procedure/Surgery May 05, 2018 Surgeon (s) JANAY RICHARDSON MD Affiliate Marketing Specialist (s): Joycelyn Mills ( Med Student III) Post-Operative Diagnosis Same Procedure Performed Removal of Cansjt-q-Uwdm Description of Procedure Anesthesia Type: MAC Estimated blood loss (mL): Minimal Specimen(s) collected/removed Qskpyw-r-Xbaa Description of the Procedure Indication for the procedure: This lady has completed systemic therapy to manage B-cell lymphoma. Therefore, after a discussion with her oncologist, it was felt reasonable to remove the Sbptbo-k-Opyy. Informed consent was obtained after reviewing the procedure in detail. Description of the procedure: She was placed supine on the operative table and our BASTING MARKER administered sedation, monitoring her vital signs. A gram of Ancef administered intravenously as prophylaxis against wound infection. Right infraclavicular fossa was prepared and draped in the usual sterile manner. Local anesthesia was achieved using 0.5 percent Marcaine with epinephrine. A secondary incision was made along the previous scar and the Roejba-y-Eakl removed without risking air embolism. The incision was then closed using 3-0 Vicryl for the subcutaneous tissue and 4-0 Vicryl for skin, in a subcuticular fashion. Steri-Strips and a nonadherent dressing was then applied. She tolerated the procedure reasonably well and was taken to the recovery room in a stable condition. Findings of the Procedure See operative report Allergies and Home Medications Allergies Coded Allergies: Penicillins (Verified Allergy, Mild, RASH, 04/28/18) Home Medications Bisoprolol Fumarate/Hctz 1 Each Tablet, 1 TAB PO DAILY, (Reported) Duloxetine HCl 30 Mg Capsule.dr, 30 MG PO DAILY, (Reported) Estradiol 1 Mg Tablet, 1 MG PO DAILY, (Reported) Naproxen 500 Mg Tablet, 500 MG PO BID, (Reported) Spironolactone 25 Mg Tablet, 25 MG PO DAILY, (Reported) Patient Home Medication List Home Medication List Reviewed: Yes JANAY RICHARDSON MD May 05, 2018 13:39
== END 2018-05-05 13:35 | disposition home or self-care (01) ==
LOC: SDC 09:26
PROVIDERS: ATTEND Surgery
DX: Z45.2 Encounter for adjustment and management of vascular access device (principal); C85.10 Unspecified B-cell lymphoma, unspecified site; I10 Essential (primary) hypertension; Z79.899 Other long term (current) drug therapy
CPT/HCPCS: 87081; 88300

== ENCOUNTER 2018-09-08 08:43 | Outpatient (RCR) | payer OTHER ==
[2018-06-16 10:39] LABS: BASOPHILS % (AUTO) 0 % (0-10); EOSINOPHILS # (AUTO) 0.1 10^3/uL (0.0-0.3); EOSINOPHILS % (AUTO) 2 % (0-10); HEMATOCRIT 42 % (35-52); HEMOGLOBIN 14.6 G/DL (11.5-16.0); LYMPHOCYTES # (AUTO) 0.8 X 10^3 (1.0-4.0); LYMPHOCYTES % (AUTO) 16 % (12-44); MEAN CORPUSCULAR HEMOGLOBIN 33 PG (25-34); MEAN CORPUSCULAR HGB CONC 34 G/DL (32-36); MEAN CORPUSCULAR VOLUME 96 FL (80-99); MEAN PLATELET VOLUME 10.3 FL (7.4-10.4); MONOCYTES # (AUTO) 0.5 X 10^3 (0.0-1.0); MONOCYTES % (AUTO) 9 % (0-12); NEUTROPHILS # (AUTO) 3.8 X 10^3 (1.8-7.8); NEUTROPHILS % (AUTO) 73 % (42-75); PLATELET COUNT 303 10^3/uL (130-400); RED CELL DISTRIBUTION WIDTH 12.1 % (10.0-14.5); WHITE BLOOD COUNT 5.2 10^3/uL (4.3-11.0)
[2018-06-16 11:00] LABS: ALANINE AMINOTRANSFERASE 18 U/L (0-55); ALBUMIN 4.3 GM/DL (3.2-4.5); ALKALINE PHOSPHATASE 71 U/L (40-136); BILIRUBIN,TOTAL 0.6 MG/DL (0.1-1.0); BUN/CREATININE RATIO 19; CALCIUM 9.5 MG/DL (8.5-10.1); CARBON DIOXIDE 26 MMOL/L (21-32); CHLORIDE 104 MMOL/L (98-107); CREATININE SERUM 0.89 MG/DL (0.60-1.30); GFR ESTIMATED > 60; GLUCOSE 91 MG/DL (70-105); POTASSIUM 3.6 MMOL/L (3.6-5.0); SODIUM 140 MMOL/L (135-145); TOTAL PROTEIN 6.9 GM/DL (6.4-8.2)
[~2018-09-08 08:43] MED LIST changes: -HYDR-3454 PO; +HYDR-3455 PO
[2018-09-08 09:01] LABS: BASOPHILS % (AUTO) 1 % (0-10); EOSINOPHILS # (AUTO) 0.1 10^3/uL (0.0-0.3); EOSINOPHILS % (AUTO) 3 % (0-10); HEMATOCRIT 41 % (35-52); HEMOGLOBIN 14.5 G/DL (11.5-16.0); LYMPHOCYTES # (AUTO) 0.8 X 10^3 (1.0-4.0); LYMPHOCYTES % (AUTO) 18 % (12-44); MEAN CORPUSCULAR HEMOGLOBIN 34 PG (25-34); MEAN CORPUSCULAR HGB CONC 35 G/DL (32-36); MEAN CORPUSCULAR VOLUME 95 FL (80-99); MEAN PLATELET VOLUME 10.4 FL (7.4-10.4); MONOCYTES # (AUTO) 0.4 X 10^3 (0.0-1.0); MONOCYTES % (AUTO) 10 % (0-12); NEUTROPHILS # (AUTO) 2.9 X 10^3 (1.8-7.8); NEUTROPHILS % (AUTO) 69 % (42-75); PLATELET COUNT 275 10^3/uL (130-400); RED CELL DISTRIBUTION WIDTH 11.7 % (10.0-14.5); WHITE BLOOD COUNT 4.2 10^3/uL (4.3-11.0)
[2018-09-08 09:25] LABS: ALBUMIN 4.3 GM/DL (3.2-4.5); BILIRUBIN,TOTAL 0.7 MG/DL (0.1-1.0); CALCIUM 9.7 MG/DL (8.5-10.1); CREATININE SERUM 0.99 MG/DL (0.60-1.30); POTASSIUM 3.9 MMOL/L (3.6-5.0); TOTAL PROTEIN 6.8 GM/DL (6.4-8.2)
== END 2018-09-14 | disposition home or self-care (01) ==
LOC: ONC 08:43
PROVIDERS: ATTEND Internal Medicine Hematology & Oncology
DX: C85.10 Unspecified B-cell lymphoma, unspecified site (principal); I10 Essential (primary) hypertension; Z79.899 Other long term (current) drug therapy
CPT/HCPCS: 36415; 80053; 83615; 85025; 99213

== ENCOUNTER → 2018-09-24 | Outpatient (CLI) | payer OTHER ==
--- NOTE | 2018-09-24 20:09 | Diagnostic Imaging Report ---
INDICATION: Routine screening. Comparison is made with prior mammograms from 09/16/2017 and 08/22/2015. 2-D and 3-D bilateral screening mammography was performed with Computer-Aided Detection (CAD) system. FINDINGS: Scattered fibroglandular densities are identified bilaterally. No dominant mass or malignant-appearing microcalcifications are seen. The axillae are unremarkable. IMPRESSION: No mammographic features suspicious for malignancy are identified. ACR BI-RADS Category 1: Negative. Result letter will be mailed to the patient. Note: At least 10% of breast cancer is not imaged by mammography. Dictated by: Dictated on workstation # [id number]
== END ==
LOC: RAD 10:17
PROVIDERS: ATTEND Family Medicine
DX: Z12.31 Encounter for screening mammogram for malignant neoplasm of breast (principal)
CPT/HCPCS: 77067

== ENCOUNTER 2019-05-31 08:11 | Outpatient (RCR) | payer OTHER ==
[2019-05-18 10:25] LABS: BASOPHILS % (AUTO) 0 % (0-10); EOSINOPHILS # (AUTO) 0.1 10^3/uL (0.0-0.3); EOSINOPHILS % (AUTO) 2 % (0-10); HEMATOCRIT 41 % (35-52); HEMOGLOBIN 14.1 G/DL (11.5-16.0); LYMPHOCYTES # (AUTO) 0.8 X 10^3 (1.0-4.0); LYMPHOCYTES % (AUTO) 16 % (12-44); MEAN CORPUSCULAR HEMOGLOBIN 32 PG (25-34); MEAN CORPUSCULAR HGB CONC 34 G/DL (32-36); MEAN CORPUSCULAR VOLUME 94 FL (80-99); MONOCYTES # (AUTO) 0.5 X 10^3 (0.0-1.0); MONOCYTES % (AUTO) 10 % (0-12); NEUTROPHILS # (AUTO) 3.8 X 10^3 (1.8-7.8); NEUTROPHILS % (AUTO) 73 % (42-75); PLATELET COUNT 258 10^3/uL (130-400); RED CELL DISTRIBUTION WIDTH 11.8 % (10.0-14.5); WHITE BLOOD COUNT 5.2 10^3/uL (4.3-11.0)
[2019-05-18 10:47] LABS: ALBUMIN 4.2 GM/DL (3.2-4.5); BILIRUBIN,TOTAL 0.5 MG/DL (0.1-1.0); CREATININE SERUM 1.23 MG/DL (0.60-1.30); POTASSIUM 3.9 MMOL/L (3.6-5.0); TOTAL PROTEIN 6.6 GM/DL (6.4-8.2)
[~2019-05-31 08:11] MED LIST changes: -DIAZ5TAB3 PO; +DIAZ5TAB49 PO; +OMEP-280 PO; -OMEP20CA12 PO
[2019-05-31 08:46] LABS: CALCIUM 9.2 MG/DL (8.5-10.1); POTASSIUM 3.5 MMOL/L (3.6-5.0)
== END 2019-08-16 | disposition home or self-care (01) ==
LOC: ONC 08:11
PROVIDERS: ATTEND Internal Medicine Hematology & Oncology
DX: C85.10 Unspecified B-cell lymphoma, unspecified site (principal); I10 Essential (primary) hypertension; Z79.899 Other long term (current) drug therapy
CPT/HCPCS: 36415; 80048; 80053; 83615; 85025; 99213

== ENCOUNTER → 2019-09-28 | Outpatient (CLI) | payer OTHER ==
[~2019-09-28] MED LIST changes: -OMEP-280 PO; +OMEP20CA18 PO; -ONDA8TAB12 PO; +ONDA8TAB15 PO
--- NOTE | 2019-09-28 13:46 | Diagnostic Imaging Report ---
INDICATION: Routine screening. COMPARISON: 09/24/2018 and 09/16/2017. TECHNIQUE: 2D and 3D bilateral screening mammography was performed with CAD. FINDINGS: Scattered fibroglandular densities are identified bilaterally. The parenchymal pattern is stable. No mass or malignant appearing microcalcifications are seen. The axillae are unremarkable. IMPRESSION: No mammographic features suspicious for malignancy are identified. ACR BI-RADS Category 1: Negative. Result letter will be mailed to the patient. Note: At least 10% of breast cancer is not imaged by mammography. Dictated by: Dictated on workstation # [id number]
== END ==
LOC: RAD 08:38
PROVIDERS: ATTEND Family Medicine
DX: Z12.31 Encounter for screening mammogram for malignant neoplasm of breast (principal)
CPT/HCPCS: 77067

== ENCOUNTER 2019-11-02 10:06 | Outpatient (RCR) | payer OTHER ==
[2019-11-02 10:21] LABS: BASOPHILS % (AUTO) 0 % (0-10); EOSINOPHILS # (AUTO) 0.2 10^3/uL (0.0-0.3); EOSINOPHILS % (AUTO) 3 % (0-10); HEMATOCRIT 40 % (35-52); HEMOGLOBIN 13.8 G/DL (11.5-16.0); LYMPHOCYTES % (AUTO) 18 % (12-44); MEAN CORPUSCULAR HEMOGLOBIN 33 PG (25-34); MEAN CORPUSCULAR HGB CONC 35 G/DL (32-36); MEAN CORPUSCULAR VOLUME 95 FL (80-99); MONOCYTES # (AUTO) 0.5 X 10^3 (0.0-1.0); MONOCYTES % (AUTO) 10 % (0-12); NEUTROPHILS # (AUTO) 3.6 X 10^3 (1.8-7.8); NEUTROPHILS % (AUTO) 69 % (42-75); PLATELET COUNT 243 10^3/uL (130-400); RED CELL DISTRIBUTION WIDTH 11.9 % (10.0-14.5); WHITE BLOOD COUNT 5.2 10^3/uL (4.3-11.0)
[2019-11-02 10:41] LABS: BILIRUBIN,TOTAL 0.4 MG/DL (0.1-1.0); CALCIUM 9.1 MG/DL (8.5-10.1); CREATININE SERUM 1.04 MG/DL (0.60-1.30); POTASSIUM 3.8 MMOL/L (3.6-5.0)
[2019-11-02 10:42] LABS: ALBUMIN 4.1 GM/DL (3.2-4.5); TOTAL PROTEIN 6.7 GM/DL (6.4-8.2)
== END 2020-01-31 | disposition home or self-care (01) ==
LOC: ONC 10:06
PROVIDERS: ATTEND Internal Medicine Hematology & Oncology
DX: C85.10 Unspecified B-cell lymphoma, unspecified site (principal); I10 Essential (primary) hypertension; Z79.899 Other long term (current) drug therapy
CPT/HCPCS: 80053; 83615; 85025; G0463; 99213

== ENCOUNTER 2020-03-23 05:34 | Outpatient (RCR) | payer OTHER ==
[~2020-03-23] VITALS: Ht 165 cm; Wt 78.1 kg
== END 2020-03-23 10:56 | disposition home or self-care (01) ==
LOC: PREOP 05:34
PROVIDERS: ATTEND Podiatrist Foot & Ankle Surgery
DX: Z01.812 Encounter for preprocedural laboratory examination (principal); Z20.828 Contact with and (suspected) exposure to other viral communicable diseases
CPT/HCPCS: 87635

== ENCOUNTER 2020-03-27 06:03 | Day surgery (SDC) | payer OTHER ==
[2020-03-27] VITALS (11 sets, daily range): BP systolic 141–157; BP diastolic 72–89
[~2020-03-27] VITALS: Ht 165 cm; Wt 78.1 kg
[2020-03-27] MEDS ORDERED: LACTATED RINGERS 1,000 ML IV PRN (06:13)
[2020-03-27] MEDS ORDERED: ceFAZolin INJECTION 1,000 MG in WATER (STERILE) FOR INJECTION 10 ML IV ONE (06:15)
[2020-03-27] MEDS ORDERED: WATER (STERILE) FOR INJECTION 10 ML ONE (06:44)
[2020-03-27] MEDS ORDERED: ceFAZolin INJECTION 1,000 MG ONE (06:44)
[2020-03-27] MEDS ORDERED: LIDOCAINE 1% INJ 20 ML 20 ML VIAL ONE (07:12)
[2020-03-27] MEDS ORDERED: BUPIVACAINE 0.5% 30 ML (SENSORCAINE) VIAL ONE (07:12)
[2020-03-27] MEDS ORDERED: fentaNYL INJECTION 100 MCG/2 ML AMP ONE (07:19)
[2020-03-27] MEDS ORDERED: MIDAZOLAM 2 MG/2 ML (VERSED) VIAL ONE (07:20)
--- NOTE | 2020-03-27 07:46 | Progress Note-Pre Operative ---
Pre-Operative Progress Note H&P Reviewed The H&P was reviewed, patient examined and no changes noted. 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
[2020-03-27] MEDS ORDERED: proPOfol 200 MG/20 ML (DIPRIVAN) VIAL IV ONE (08:53)
[2020-03-27] MEDS ORDERED: ONDANSETRON 4 MG/2 ML (SDV) Z0FRAN ONE (08:53)
[2020-03-27] MEDS ORDERED: LIDOCAINE PF 2% 5 ML (XYLOCAINE) VIAL ONE (08:53)
[2020-03-27] MEDS ORDERED: ESMOLOL 100 MG/10 ML (BREVIBLOC) VIAL ONE (08:53)
[2020-03-27] MEDS ORDERED: LACTATED RINGERS 1,000 ML IV SCH (09:21)
--- NOTE | 2020-03-27 09:21 | Progress Note-Post Operative ---
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
[2020-03-27] MEDS ORDERED: SEVOFLURANE (ULTANE) 15 ML INHAL SOLN ONE (09:22)
[2020-03-27] MEDS ORDERED: ACHD5005 PO (09:24)
--- NOTE | 2020-03-27 09:25 | Anesthesia-General Post-Op ---
General Patient Condition Mental Status/LOC: Same as Preop Cardiovascular: Satisfactory Nausea/Vomiting: Absent Respiratory: Satisfactory Pain: Controlled Complications: Absent Post Op Complications Complications None Follow Up Care/Instructions Patient Instructions None needed. Anesthesia/Patient Condition Patient Condition Patient is doing well, no complaints, stable vital signs, no apparent adverse anesthesia problems. No complications reported per nursing. SHAUN MCLAUGHLIN CRNA Mar 27, 2020 09:25
[2020-03-27] MEDS ORDERED: HYDROcodone/APAP 5 MG/325 MG (LORTAB) TAB PO PRN (09:30)
[2020-03-27] MEDS ORDERED: fentaNYL INJECTION 100 MCG/2 ML AMP IVP ONE (09:30)
[2020-03-27] MEDS ORDERED: morphine INJ 10 MG/ML 1ML (SYR OR VIAL) IVP ONE (09:30)
--- NOTE | 2020-03-27 11:30 | NUR ---
PATIENT RECEIVED 2000 CC OF LACTATED RINGERS TOTAL TODAY.
--- NOTE | 2020-03-27 12:02 | Physical Therapy Ortho Eval ---
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, right Prior Level of Function Current Living Status: Spouse Locomotion (Upon Admit): Independent Subjective Entry Into Home: Ramp Steps Accessories: Ramped Entrance Motor Control Motor Control: Motor Control WNL ROM ROM: WFL, except focal deficit Strength Strength: WFL Transfer Transfers (B, C, W/C) (FIM): 6 Gait Gait Assistive Device: Crutches Right Lower Extremity: Right Weight Bearing Status RLE: Partial Weight Bearing Left Lower Extremity: Left Weight Bearing Status LLE: Full Weight Bearing Gait (FIM): 6 Distance (FIM): 3=150 ft Distance: 150' Gait Level of Assist: 6 Treatment Rendered Treatment: Gait Train Assessment/Goals Goal Time Frame: 1 Visit Safe Ambulation: Yes Plan Treatment Plan: Discharge, Gait, Other (fit and issued crutches) Time Time In: 1135 Time Out: 1146 Total Billed Treatment Time: 11 [facility] Mar 27, 2020 12:02
--- NOTE | 2020-03-27 12:17 | Diagnostic Imaging Report ---
INDICATION: Postoperative. TECHNIQUE: Two views of the right foot. CORRELATION STUDY: None. FINDINGS: Soft tissue swelling and gas collection centered over the particularly tarsometatarsal region of the right foot. Postoperative changes at the level of the first metatarsal head are present. There is joint space narrowing at the first MTP joint with mild osteophyte formation. Alignment is near-anatomic. Remaining osseous structures are otherwise unremarkable. Overlying dressing material is present. IMPRESSION: 1. Postoperative changes at the first MTP joint. Alignment is near-anatomic. Dictated by: Dictated on workstation # [id number]
--- NOTE | 2020-03-27 14:14 | OPERATIVE REPORT ---
DATE OF SERVICE: 03/27/2020 PREOPERATIVE DIAGNOSES: 1. Hallux rigidus, right. 2. Neuroma, right third intermetatarsal space. POSTOPERATIVE DIAGNOSES: 1. Hallux rigidus, right. 2. Neuroma, right third intermetatarsal space. PROCEDURES: 1. Cheilectomy, right foot. 2. Neurectomy right third intermetatarsal space. WOUND CLASS: Clean. ANESTHESIA: General. HEMOSTASIS: Pneumatic thigh tourniquet at 250 mmHg. INDICATIONS: This 59-year-old female presents complaining of a painful right foot. Conservative therapy is met with unsatisfactory results and the patient is agreeable to surgical intervention after risks and complications were discussed at length. No guarantees were extended to the patient. She is willing to proceed. DESCRIPTION OF PROCEDURE: The patient was brought back to the operating table, placed in secure supine position. A general anesthetic was then induced. A proper timeout was performed. Pneumatic thigh tourniquet was placed on the right lower extremity over several layers of padding. The right foot was then prepped and draped in normal sterile manner. The right foot was then elevated and allowed to exsanguinate after which the tourniquet was inflated to 250 mmHg. The right foot had a Herron block as well as infusion into this third intermetatarsal space utilizing 1:1 mixture of 1% Xylocaine, 0.5% Marcaine, a total of 10 mL was utilized for the preoperative block. Attention was then directed to the dorsal aspect of the right first metatarsophalangeal joint where a 5 cm longitudinal linear incision was created. The incision was deepened in the same plane with great care to identify and retract all vital neurovascular structures. Only the necessary blood vessels were cauterized as encountered. The incision was deepened down to the capsular tissue where a longitudinal capsulotomy was performed medial to the extensor tendons. The capsular tissue was reflected mediolaterally exposing the hypertrophic dorsal eminence to the first metatarsal head as well as the base of the proximal phalanx. Utilizing a power sagittal saw, the dorsal eminence was reduced to the first metatarsal head and further contoured and smoothed with a power lexy. A rongeur and power bur was utilized to reduce the dorsal eminence to the base of the proximal phalanx. Improved range of motion was noted to the right first metatarsophalangeal joint at this time. Attention was then directed to the articular cartilage where some loose articular cartilage was noted to the distal medial aspect of the first metatarsal head. This was sharply dissected. There is a full thickness degeneration of the hyaline cartilage noted to the distal lateral aspect of the right first metatarsal head. This area was fenestrated utilizing a 1.1 mm drill. There is also some full-thickness degeneration of hyaline cartilage to the dorsal aspect of the base of the proximal phalanx, which again was fenestrated with the 1.1 mm drill. The area was flushed with copious amounts of normal saline and closure was then performed in layers. Deep closure was performed with 3-0 Vicryl, superficial with 4-0 Vicryl, skin closed with 4-0 Prolene in a horizontal mattress type stitch. Attention was then directed to the dorsal aspect of the right third intermetatarsal space where a 3 cm longitudinal linear incision was created. The incision was deepened down through the soft tissue with great care to identify and retract all vital neurovascular structures. Some blood vessels were cauterized as encountered. The incision was deepened with blunt dissection down to the deep transverse intermetatarsal ligament, which was incised. Below this was a white glistening mass grossly identified to be a neuroma. The neural structure was traced distally into its proper digital nerves of the third and fourth digits and cut as distally as possible and then traced proximally with coaxial dissection into the intermetatarsal space and cut proximal to the metatarsal head area. The specimen was then sent for gross and microscopic evaluation. No other abnormalities were identified to the right third intermetatarsal space, area was flushed with copious amounts of normal saline. Closure was performed in layers. Superficial closure to the subcutaneous tissue was performed with 4-0 Vicryl and skin closure was performed with 4-0 Prolene in a horizontal mattress type stitch. Postoperative injection consisted of 14 mL of 0.5% Marcaine injected in a local infusion to the surgical sites followed by 10 mg dexamethasone shared between the third intermetatarsal space and into the first metatarsophalangeal joint space. Postoperative dressing consisted of Betadine soaked Adaptic, sterile 4 x 4, sterile Kerlix all secured with a Coban wrap. The patient tolerated the anesthesia and procedure well, was transported from the operating room to the recovery room with vital signs stable and vascular status intact to all digits of the right foot. She is to be partial weightbearing on the right lower extremity with crutch assistance and range of motion performed daily to the ankle joint as well as to the right first metatarsophalangeal joint. Job ID: [id number] DocumentID: [id number] Dictated Date: 03/27/2020 09:32:19 Illuminating Engineer Date: 03/27/2020 14:13:09 Dictated By: MARY MANUEL DPM
== END 2020-03-27 11:55 | disposition home or self-care (01) ==
LOC: SDC 06:03
PROVIDERS: ATTEND Podiatrist Foot & Ankle Surgery
DX: M20.21 Hallux rigidus, right foot (principal); G57.81 Other specified mononeuropathies of right lower limb; I10 Essential (primary) hypertension; M19.91 Primary osteoarthritis, unspecified site; M06.9 Rheumatoid arthritis, unspecified; M54.9 Dorsalgia, unspecified; G89.29 Other chronic pain; M54.40 Lumbago with sciatica, unspecified side; M70.70 Other bursitis of hip, unspecified hip; Z85.72 Personal history of non-Hodgkin lymphomas; Z79.890 Hormone replacement therapy; Z88.5 Allergy status to narcotic agent; Z79.899 Other long term (current) drug therapy; Z88.0 Allergy status to penicillin; Z11.2 Encounter for screening for other bacterial diseases
CPT/HCPCS: 73620; 87081; 88304

== ENCOUNTER 2020-04-24 12:30 | Outpatient (CLI) | payer OTHER ==
[~2020-04-24 12:30] MED LIST changes: +ACHD5005 PO
== END 2020-04-24 13:00 | disposition home or self-care (01) ==
LOC: SLEEP 12:30
PROVIDERS: ATTEND Nurse Practitioner Family
DX: G47.10 Hypersomnia, unspecified (principal); Z20.828 Contact with and (suspected) exposure to other viral communicable diseases

== ENCOUNTER → 2020-05-02 | Outpatient (CLI) | payer OTHER ==
[2020-05-02 09:53] LABS: BASOPHILS % (AUTO) 1 % (0-10); EOSINOPHILS # (AUTO) 0.2 10^3/uL (0.0-0.3); EOSINOPHILS % (AUTO) 3 % (0-10); HEMATOCRIT 40 % (35-52); HEMOGLOBIN 13.5 g/dL (11.5-16.0); LYMPHOCYTES % (AUTO) 17 % (12-44); MEAN CORPUSCULAR HEMOGLOBIN 33 pg (25-34); MEAN CORPUSCULAR HGB CONC 34 g/dL (32-36); MEAN CORPUSCULAR VOLUME 96 fL (80-99); MEAN PLATELET VOLUME 10.2 fL (9.0-12.2); MONOCYTES # (AUTO) 0.3 10^3/uL (0.0-1.0); MONOCYTES % (AUTO) 5 % (0-12); NEUTROPHILS # (AUTO) 4.3 10^3/uL (1.8-7.8); NEUTROPHILS % (AUTO) 75 % (42-75); PLATELET COUNT 239 10^3/uL (130-400); WHITE BLOOD COUNT 5.7 10^3/uL (4.3-11.0)
[2020-05-02 10:25] LABS: ALBUMIN 4.1 GM/DL (3.2-4.5); BILIRUBIN,TOTAL 0.5 MG/DL (0.1-1.0); CALCIUM 8.9 MG/DL (8.5-10.1); CREATININE SERUM 0.99 MG/DL (0.60-1.30); POTASSIUM 3.7 MMOL/L (3.6-5.0); TOTAL PROTEIN 6.6 GM/DL (6.4-8.2)
== END ==
LOC: EDSTATUS 02-01 09:38 → ONC 09:39
PROVIDERS: ATTEND Internal Medicine Hematology & Oncology
DX: C85.86 Other specified types of non-Hodgkin lymphoma, intrapelvic lymph nodes (principal); I10 Essential (primary) hypertension; Z92.21 Personal history of antineoplastic chemotherapy
CPT/HCPCS: 80053; 83615; 85025; G0463; 99213

== ENCOUNTER → 2020-11-07 | Outpatient (CLI) | payer OTHER ==
--- NOTE | 2020-11-07 12:27 | Diagnostic Imaging Report ---
INDICATION: Routine screening. Comparison is made with prior mammogram 09/28/2019 and 09/24/2018. 2-D and 3-D bilateral screening mammography was performed with CAD. Both breasts are primarily involutional. No mass or malignant appearing microcalcifications are seen. Axillae are unremarkable. IMPRESSION: BI-RADS Category 1 No mammographic features suspicious for malignancy are identified. ACR BI-RADS Category 1: Negative. Result letter will be mailed to the patient. Note: At least 10% of breast cancer is not imaged by mammography. Dictated by: Dictated on workstation # [id number]
== END ==
LOC: RAD 08:15
PROVIDERS: ATTEND Family Medicine
DX: Z12.31 Encounter for screening mammogram for malignant neoplasm of breast (principal)
CPT/HCPCS: 77063; 77067

== ENCOUNTER → 2020-11-07 | Outpatient (CLI) | payer OTHER ==
[2020-11-07 09:38] LABS: BASOPHILS % (AUTO) 0 % (0-10); EOSINOPHILS # (AUTO) 0.1 10^3/uL (0.0-0.3); EOSINOPHILS % (AUTO) 3 % (0-10); HEMATOCRIT 43 % (35-52); HEMOGLOBIN 14.4 g/dL (11.5-16.0); LYMPHOCYTES # (AUTO) 1.2 10^3/uL (1.0-4.0); LYMPHOCYTES % (AUTO) 23 % (12-44); MEAN CORPUSCULAR HEMOGLOBIN 33 pg (25-34); MEAN CORPUSCULAR HGB CONC 34 g/dL (32-36); MEAN CORPUSCULAR VOLUME 97 fL (80-99); MEAN PLATELET VOLUME 9.9 fL (9.0-12.2); MONOCYTES # (AUTO) 0.3 10^3/uL (0.0-1.0); MONOCYTES % (AUTO) 5 % (0-12); NEUTROPHILS # (AUTO) 3.8 10^3/uL (1.8-7.8); NEUTROPHILS % (AUTO) 69 % (42-75); PLATELET COUNT 252 10^3/uL (130-400); WHITE BLOOD COUNT 5.5 10^3/uL (4.3-11.0)
[2020-11-07 09:59] LABS: ALBUMIN 4.1 GM/DL (3.2-4.5); BILIRUBIN,TOTAL 0.5 MG/DL (0.1-1.0); CALCIUM 9.4 MG/DL (8.5-10.1); CREATININE SERUM 1.04 MG/DL (0.60-1.30); POTASSIUM 3.8 MMOL/L (3.6-5.0); TOTAL PROTEIN 6.7 GM/DL (6.4-8.2)
== END ==
LOC: ONC 09:24
PROVIDERS: ATTEND Internal Medicine Hematology & Oncology
DX: C82.35 Follicular lymphoma grade IIIa, lymph nodes of inguinal region and lower limb (principal); I10 Essential (primary) hypertension; Z92.21 Personal history of antineoplastic chemotherapy
CPT/HCPCS: 80053; 83615; 85025; G0463; 99213

== ENCOUNTER → 2021-05-21 | Outpatient (CLI) | payer OTHER ==
[2021-05-21 10:01] LABS: BASOPHILS % (AUTO) 1 % (0-10); EOSINOPHILS # (AUTO) 0.1 10^3/uL (0.0-0.3); EOSINOPHILS % (AUTO) 2 % (0-10); HEMATOCRIT 43 % (35-52); HEMOGLOBIN 14.9 g/dL (11.5-16.0); LYMPHOCYTES # (AUTO) 1.1 10^3/uL (1.0-4.0); LYMPHOCYTES % (AUTO) 22 % (12-44); MEAN CORPUSCULAR HEMOGLOBIN 33 pg (25-34); MEAN CORPUSCULAR HGB CONC 35 g/dL (32-36); MEAN CORPUSCULAR VOLUME 95 fL (80-99); MEAN PLATELET VOLUME 10.5 fL (9.0-12.2); MONOCYTES # (AUTO) 0.4 10^3/uL (0.0-1.0); MONOCYTES % (AUTO) 8 % (0-12); NEUTROPHILS # (AUTO) 3.5 10^3/uL (1.8-7.8); NEUTROPHILS % (AUTO) 67 % (42-75); PLATELET COUNT 290 10^3/uL (130-400); WHITE BLOOD COUNT 5.2 10^3/uL (4.3-11.0)
[2021-05-21 10:20] LABS: ALBUMIN 4.4 GM/DL (3.2-4.5); BILIRUBIN,TOTAL 0.7 MG/DL (0.1-1.0); CALCIUM 9.5 MG/DL (8.5-10.1); CREATININE SERUM 1.03 MG/DL (0.60-1.30); POTASSIUM 3.9 MMOL/L (3.6-5.0); TOTAL PROTEIN 7.2 GM/DL (6.4-8.2)
== END ==
LOC: ONC 09:56
PROVIDERS: ATTEND Internal Medicine Hematology & Oncology
DX: C82.40 Follicular lymphoma grade IIIb, unspecified site (principal); I10 Essential (primary) hypertension; Z92.21 Personal history of antineoplastic chemotherapy
CPT/HCPCS: 80053; 83615; 85025; G0463; 99213

== ENCOUNTER → 2021-07-23 | Outpatient (CLI) | payer OTHER ==
[~2021-07-23] MED LIST changes: +BISO-2 PO; -BISO1TAB3 PO; +ONDA-106 PO; -ONDA8TAB15 PO
--- NOTE | 2021-07-23 09:24 | Diagnostic Imaging Report ---
INDICATION: Pelvic pain. TIME OF EXAM: 9:24 AM AP view of the pelvis and 2 views of right hip were obtained. The femoral acetabular alignment is normal. Both femoral heads and necks appear to be intact. Rami are intact. No fractures are seen. There are surgical clips in the left groin. IMPRESSION: No acute bony abnormality is detected. Dictated by: Dictated on workstation # [id number]
== END ==
LOC: ORTHO 09:06
PROVIDERS: ATTEND Orthopaedic Surgery
DX: M16.11 Unilateral primary osteoarthritis, right hip (principal)
CPT/HCPCS: 73502; G0463; 99203

== ENCOUNTER → 2021-08-06 | Outpatient (CLI) | payer OTHER | LOC: ORTHO 09:29 | PROVIDERS: ATTEND Orthopaedic Surgery | DX: M16.11 Unilateral primary osteoarthritis, right hip (principal); M47.816 Spondylosis without myelopathy or radiculopathy, lumbar region | CPT/HCPCS: 99212 ==

== ENCOUNTER 2021-08-09 11:16 | Outpatient (RCR) | payer OTHER | END 2021-08-13 | disposition home or self-care (01) | PROVIDERS: ATTEND Orthopaedic Surgery | DX: M16.11 Unilateral primary osteoarthritis, right hip (principal); I10 Essential (primary) hypertension; M54.16 Radiculopathy, lumbar region ==

== ENCOUNTER 2021-08-22 08:01 | Outpatient (RCR) | payer OTHER | END 2021-09-10 | disposition home or self-care (01) | PROVIDERS: ATTEND Orthopaedic Surgery | DX: M16.11 Unilateral primary osteoarthritis, right hip (principal); I10 Essential (primary) hypertension; M54.16 Radiculopathy, lumbar region ==

== ENCOUNTER → 2021-08-27 | Outpatient (CLI) | payer OTHER ==
--- NOTE | 2021-08-27 12:04 | Diagnostic Imaging Report ---
INDICATION: Back pain. FINDINGS: 5 views. Lumbosacral spine shows good alignment. Body height is well-maintained. Disc spaces are well-maintained. The facets show good alignment. No evidence of pars defect. No significant hypertrophic changes seen along the facets or endplates. SI joints are symmetric with mild sclerotic change. IMPRESSION: Mild degenerative changes of the SI joints. No other abnormalities demonstrated. Dictated by: Dictated on workstation # [id number]
== END ==
LOC: ORTHO 09:35
PROVIDERS: ATTEND Orthopaedic Surgery
DX: M47.818 Spondylosis without myelopathy or radiculopathy, sacral and sacrococcygeal region (principal); M51.36 Other intervertebral disc degeneration, lumbar region
CPT/HCPCS: 72110; G0463; 99212

== ENCOUNTER → 2021-09-20 | Outpatient (CLI) | payer OTHER ==
--- NOTE | 2021-09-20 16:30 | Diagnostic Imaging Report ---
PROCEDURE: MRI lumbar spine. TECHNIQUE: Multiplanar, multisequence MRI of the lumbar spine was performed without contrast. INDICATION: Chronic low back pain, no known injury COMPARISON: 03/21/2009. Radiographs from 08/27/2021 FINDINGS: The last well-formed disc space will labeled L5-S1 for the purposes of this examination. Alignment is normal with no spondylolisthesis. Vertebral body heights and disc heights are preserved. No acute fracture is seen. Soft tissues about the lumbar spine demonstrate no acute abnormality. The conus terminates in appropriate position. T12-L1: No spinal canal or foraminal stenosis. No disc bulge. L1-L2: No disc bulge. No spinal canal or foraminal stenosis. L2-L3: Minimal disc bulge and facet arthropathy. No spinal canal or foraminal stenosis. L3-L4: Mild disc bulge and facet arthropathy. No spinal canal stenosis. No foraminal stenosis. L4-L5: Mild disc bulge and facet arthropathy. No spinal canal or foraminal stenosis. L5-S1: No significant disc bulge. No spinal canal or foraminal stenosis. There are Tarlov cysts at S2-S3 bilaterally, with the larger on the left measuring at least 2.6 cm in size. IMPRESSION: 1. Minimal degenerative changes in the lumbar spine. No spinal canal or foraminal stenosis. 2. Bilateral sacral Tarlov cysts. Dictated by: Dictated on workstation # [id number]
== END ==
LOC: RAD 14:45
PROVIDERS: ATTEND Orthopaedic Surgery
DX: G96.191 Perineural cyst (principal)
CPT/HCPCS: 72148

== ENCOUNTER → 2021-09-27 | Outpatient (CLI) | payer OTHER ==
--- NOTE | 2021-09-27 10:22 | Diagnostic Imaging Report ---
EXAMINATION: Magnetic resonance imaging of the pelvis and bilateral hips without contrast. DATE: September 27, 2021. COMPARISON: Pelvis and right hip radiographs July 23, 2021. INDICATION: 61-year-old female, right-sided iliac/pelvic and right hip pain. TECHNIQUE: Magnetic Resonance Imaging sequences were performed of the pelvis and bilateral hips without contrast. FINDINGS: TENDONS AND MUSCLES: The gluteus sandy muscles and their origins and insertions are intact bilaterally. The tendons and muscles of the greater trochanter - gluteus minimus, piriformis, and gluteus medius - are intact bilaterally. Both common hamstring attachments on the ischial tuberosities are intact and the extensor muscles of the thigh are intact. The visualized portions of the flexors and adductor muscles of the thigh and their attachments on the pelvis and hips are intact. Both iliopsoas and iliacus muscles are intact. The bilateral iliopsoas tendons are intact. HIPS AND SACROILIAC JOINTS: The contours of the femoral heads and acetabuli are smooth and symmetric. There is a tear of the anterosuperior labrum of the left hip with an associated paralabral cyst measuring 14 x 5 x 5 mm in size. There is no identified fluid-filled right hip labral tear or paralabral cyst. The articular cartilage of both hips appears grossly intact. There is no hip joint effusion. The sacroiliac joints are unremarkable. LUMBAR SPINE: The visible portions of the lumbar spine are unremarkable on limited assessment. BONE: There is a focal area of edema-like signal in the anterior aspect of the right iliac crest, best demonstrated on sagittal T2 fat saturation sequence image 49. There is adjacent edema involving the anterior margin of the right gluteus minimus muscle. There is no identified fracture. There are no pathognomonic signal changes of osteonecrosis. BURSAE AND SOFT TISSUES: The bursae and soft tissues surrounding the pelvis and hips are within normal limits. IMPRESSION: 1. Tear of the left hip anterior superior labrum with associated paralabral cyst. No evidence of arthritis of either hip. No hip joint effusion. 2. Intact tendons. 3. Focal area of edema in the anterior aspect of the right iliac bone, most likely reflecting a bone contusion. No identified acute fracture or evidence of osteonecrosis. 4. Focal area of edema in the anterior aspect of the upper portion of the right gluteus minimus muscle near the site of abnormal marrow edema, most likely reflecting a low-grade muscle strain. Dictated by: Dictated on workstation # [id number]
== END ==
LOC: RAD 08:00
PROVIDERS: ATTEND Orthopaedic Surgery
DX: S73.102A Unspecified sprain of left hip, initial encounter (principal); M16.11 Unilateral primary osteoarthritis, right hip; X58.XXXA Exposure to other specified factors, initial encounter
CPT/HCPCS: 72195

== ENCOUNTER 2022-02-28 20:21 | Outpatient (CLI) | payer OTHER | END 2022-03-01 06:14 | disposition home or self-care (01) | LOC: SLEEP 20:21 | PROVIDERS: ATTEND Family Medicine | DX: G47.33 Obstructive sleep apnea (adult) (pediatric) (principal); G47.36 Sleep related hypoventilation in conditions classified elsewhere; I10 Essential (primary) hypertension | CPT/HCPCS: 95810 ==

== ENCOUNTER 2022-05-23 05:53 | Emergency (ER) | payer OTHER ==
[~2022-05-23] VITALS: Ht 165 cm; Wt 80.0 kg
[2022-05-23] MEDS ORDERED: BEBTELOVIMAB 175 MG/2 ML VIAL IV ONE ×2 (05:55→07:00)
--- NOTE | 2022-05-23 06:14 | ED Cough/URI ---
General Chief Complaint: COVID19 Suspect/Confirmed Stated Complaint: COUGH - CONGESTION - BODYACHES Source: patient Exam Limitations: no limitations History of Present Illness Date Seen by Provider: May 23, 2022 Time Seen by Provider: 06:15 Initial Comments Patient is a 61-year-old female who presents to the emergency room today with a chief complaint of onset of symptoms yesterday around noon of cough, congestion, mild shortness of breath and headache. Diffuse body aches and some rib pain. Patient states that her tested positive for COVID this past Friday 5 days ago. She states he received monoclonal antibody infusion. Patient reports that she is fully vaccinated for COVID pneumonia and influenza. She last took some Tylenol at about 9 PM. She has a history of non-Hodgkin's lymphoma, hypertension. She is 5 years out of her diagnosis of cancer. Clinically looks well, stable vital signs. On my entry into the room her room air oxygen saturation is 94% however with deep breath and exam she is 97%. No increased work of breathing or respiratory distress is noted. Blood pressure is good, pulses good. Discussion with the patient regarding therapy for COVID-19. I explained to the patient the benefits of both Paxlovid and monoclonal antibody as well as the fact that monoclonal is now no longer provided by the government and there would be a significant charge to that. Patient states that after her received it within about 24 to 48 hours she was feeling much better. She states "I have met my deductible and I do not care how much it costs". She elects to receive monoclonal. Timing/Duration: yesterday Severity/Quality: productive cough (semi-productive) Associated Symptoms: chest pain/soreness (rib pain), cough, headache, muscle aches, nasal congestion, shortness of breath Allergies and Home Medications Allergies Coded Allergies: Penicillins (Verified Allergy, Mild, RASH, has taken Augmentin & Keflex w/o issue, 03/27/20) Patient Home Medication List Home Medication List Reviewed: Yes Bisoprolol Fumarate/Hctz (Bisoprolol-Hctz 5-6.25 mg Tab) 1 Each Tablet, 1 TAB PO DAILY, (Reported) Entered as Reported by: JAMES BARILLAS on 12/01/15 4719 Duloxetine HCl (Cymbalta) 30 Mg Capsule.dr, 30 MG PO DAILY, (Reported) Entered as Reported by: SHARON BAHENA on 10/28/17 0830 Estradiol (Estradiol Tablet) 1 Mg Tablet, 1 MG PO DAILY, (Reported) Entered as Reported by: JAMES BARILLAS on 12/01/15 1634 Hydrocodone/Acetaminophen (Hydrocodone-Acetamin 5-325 mg) 1 Each Tablet, 1 EACH PO Q4H PRN for PAIN-MODERATE (5-7) Prescribed by: MARY MANUEL on 03/27/20 0924 Naproxen (Naproxen) 500 Mg Tablet, 500 MG PO DAILY, (Reported) Entered as Reported by: JAMES BARILLAS on 12/01/15 1634 Spironolactone (Spironolactone) 25 Mg Tablet, 25 MG PO DAILY, (Reported) Entered as Reported by: JAMES BARILLAS on 12/01/15 1634 Review of Systems Review of Systems Constitutional: see HPI, malaise EENTM: nose congestion Respiratory: cough, other (rib pain) Gastrointestinal: nausea Genitourinary: no symptoms reported : No Musculoskeletal: muscle cramps (body aches) Skin: no symptoms reported Psychiatric/Neurological: Headache All Other Systems Reviewed Negative Unless Noted: Yes Past Zsoyrac-Qpeyoo-Fpazlv Hx Seasonal Allergies Seasonal Allergies: Yes Past Medical History Surgeries: Yes (Port, lymph node biopsy) Gallbladder, Hysterectomy Respiratory: No Cardiac: Yes Hypertension Neurological: No Reproductive Disorders: No SHOULDER SAWYER History: Hysterectomy Sexually Transmitted Disease: No HIV/AIDS: No Genitourinary: No Gastrointestinal: No Musculoskeletal: Yes (Sciatica, hip bursitis) Arthritis, Chronic Back Pain, Fractures Endocrine: No HEENT: Yes (GLASSES) Loss of Vision: Denies Hearing Impairment: Denies Cancer: Yes Lymphoma Did You Recieve Any Treatments: Yes What Type of Treatment Did You: Chemotherapy Psychosocial: Yes (FROM LYMPHOMA) Anxiety, Depression Integumentary: No Blood Disorders: No Adverse Reaction/Blood Tranf: No (N/A) Family Medical History FH: prostate cancer 19 FATHER ( AT AGE 79) Physical Exam Vital Signs - First Documented 05/23/22 05:58 Temp 37.0 Pulse 88 Resp 18 B/P (MAP) 141/75 (97) Capillary Refill : Height: 5'6.00" Weight: 170lbs. 0.0oz. 77.028622qb; 28.68 BMI Method:Stated General Appearance: WD/WN, no apparent distress Eyes: Bilateral Eye Normal Inspection, Bilateral Eye PERRL, Bilateral Eye EOMI HEENT: PERRL/EOMI, normal ENT inspection, TMs normal Neck: non-tender, full range of motion, supple Respiratory: chest non-tender, lungs clear, normal breath sounds, no respiratory distress, no accessory muscle use Cardiovascular: regular rate, rhythm Gastrointestinal: normal bowel sounds, non tender, soft Neurologic/Psychiatric: no motor/sensory deficits, alert, normal mood/affect, oriented x 3 Skin: normal color, warm/dry Progress/Results/Core Measures Suspected Sepsis SIRS Temperature: Pulse: Respiratory Rate: Blood Pressure / Mean: Results/Orders Lab Results Laboratory Tests Test 05/23/22 06:00 Range/Units Influenza Type A (RT-PCR) Not Detected Not Detecte Influenza Type B (RT-PCR) Not Detected Not Detecte SARS-CoV-2 RNA (RT-PCR) Detected H Not Detecte My Orders Orders - AZUL HANKINS MD Covid 19 Inhouse Test (05/23/22 06:14) Influenza A And B By Pcr (05/23/22 06:14) Isolation Central Supply Req (05/23/22 06:14) Ed Iv/Invasive Line Start (05/23/22 06:56) Bebtelovimab (Bebtelovimab) (05/23/22 07:00) Vital Signs/I&O 05/23/22 05:58 Temp 37.0 Pulse 88 Resp 18 B/P (MAP) 141/75 (97) Capillary Refill : Departure Impression Primary Impression: COVID-19 Disposition: 01 HOME, SELF-CARE Condition: Stable Departure-Patient Inst. Decision time for Depature: 07:10 Referrals: JUANITA SANDERS DO (PCP/Family) Primary Care Physician Patient Instructions: COVID-19 ED Add. Discharge Instructions: You have received the monoclonal antibody infusion to treat Covid 19 - "Bebtelimovab". Over the next several days, drink plenty of fluids to stay well hydrated. Use over the counter extra strength tylenol and ibuprofen as needed for body aches, fever. You can use regular cough and cold medications over the counter for your congestion. If you develop any worsening symptoms, such as, high fever, worsening shortness of breath or any other emergent, concerning symptoms please return to the Emergency Department for re-evaluation. Work/School Note: Work Release Form Date Seen in the Emergency Department: May 23, 2022 Return to Work: May 27, 2022 Copy Copies To 1: JUANITA SANDERS KATHRYN M MD May 23, 2022 06:14
[2022-05-23 08:26] VITALS: BP 142/73
== END 2022-05-23 08:26 | disposition home or self-care (01) ==
LOC: EDUNIT# 05:53 → ER 05:54
DX: U07.1 COVID-19 (principal)
CPT/HCPCS: 87636; 99283

== ENCOUNTER → 2022-10-15 | Outpatient (CLI) | payer BC ==
--- NOTE | 2022-10-15 11:15 | Diagnostic Imaging Report ---
INDICATION: Screening 3D bilateral screening mammogram with CAD. This study was compared to the prior exams of 11/07/2020 and 09/28/2019. CAD is utilized. The current study was also evaluated with a Computer Aided Detection (CAD) system. At this time there are no current complaints. The breasts are predominantly fatty. When compared to the prior study there has been no significant change. There is no primary or secondary sign of malignancy noted. IMPRESSION: There is no evidence of malignancy. ACR category 1 ACR BI-RADS Category 1: Negative. Result letter will be mailed to the patient. Note: At least 10% of breast cancer is not imaged by mammography. Dictated by: Dictated on workstation # [id number]
== END ==
LOC: RAD 07:34
PROVIDERS: ATTEND Family Medicine
DX: Z12.31 Encounter for screening mammogram for malignant neoplasm of breast (principal)
CPT/HCPCS: 77063; 77067

== ENCOUNTER 2022-10-30 08:42 | Outpatient (RCR) | payer BC, OTHER | END 2022-11-10 | disposition home or self-care (01) | LOC: ONC 08:42 | PROVIDERS: ATTEND Internal Medicine Hematology & Oncology | DX: Z53.9 Procedure and treatment not carried out, unspecified reason (principal) ==